=== PATIENT | female | born 1965 | race Caucasian/White ===

== ENCOUNTER 2020-02-13 17:43 | Emergency (ER) | payer OTHER, SELFPAY ==
[2020-02-13 19:11] VITALS: BP 155/80; PULSE 57; RESP 16; TEMP 36.8; O2SAT 99; BMI 28.3
[2020-02-13 19:29] VITALS: BP 165/81; PULSE 67; RESP 16; O2SAT 99
--- NOTE | 2020-02-13 19:35 | ED_ITS ---
HPI - Nausea/Vomiting/Diarrhea General Chief complaint: Nausea/Vomiting/Diarrhea Stated complaint: n/v/d Time Seen by Provider: 02/13/20 19:47 Source: patient Mode of arrival: ambulatory Limitations: no limitations History of Present Illness HPI Narrative: 54-year-old female presents with nausea, vomiting, and diarrhea for 6 hours. Diarrhea started before the nausea and vomiting. She did eat breakfast this morning of pork chops and eggs, and states that the vomiting started several hours after that. She does not have a primary care physician or medical insurance. [place]. She denies chest pain or pressure, palpitations, shortness of breath, abdominal distention, dysuria, hematuria, fevers or chills. MD elicited complaint: nausea, vomiting, diarrhea and abdominal pain Onset (ago): hour(s) (3) Description of vomiting: food contents and watery Description of diarrhea: watery and loose Associated nausea: Yes Associated abdominal pain: Yes Location of pain: epigastric Pain consistency: intermittent Severity: moderate Pain scale (0-10): 6 Quality: cramping Exacerbating factors: eating Relieving factors: none Associated symptoms: nausea/vomiting Treatment prior to arrival: none Related Data Home Medications Medication Instructions Recorded Confirmed No Known Home Meds 02/13/20 02/13/20 Allergies Allergy/AdvReac Type Severity Reaction Status Date / Time No Known Allergies Allergy Verified 02/13/20 19:14 Review of Systems Review of Systems: Constitutional: No Weight loss, No Fever, No Chills, No Night Sweats, No Fatigue, No Malaise ENT/Mouth: No Hearing loss, No Ear Pain, No Nasal Congestion, No Sinus Pain, No Hoarseness, No sore throat, No Rhinorrhea, No Swallowing Difficulty Eyes: No Eye Pain, No Swelling, No Redness, No Foreign Body, No Discharge, No Vision Changes Cardiovascular: No Chest Pain, No SOB, No Dyspnea on Exertion, No Orthopnea, No Edema, No Palpitations Respiratory: No Cough, No Sputum, No Wheezing, No Smoke Exposure, No Dyspnea Gastrointestinal: Positive Nausea, Positive Vomiting, positive Diarrhea, positive abdominal Pain, No Hematochezia, No Melena Genitourinary: no irregular bleeding, No Dysuria, No Urinary Frequency, No Hematuria, No Urinary Incontinence, No Urgency, No Flank Pain, No Urinary Flow Changes, No Hesitancy Musculoskeletal: No joint pain, No Myalgias, No Joint Swelling Skin: No Skin Lesions, No rash Neuro: No Weakness, No Numbness, No Paresthesias, No Loss of Consciousness, No Dizziness, No Headache Psych: No Anxiety/Panic, No Depression, No SI/HI/AH/VH, No Social Issues Heme/Lymph: No Bruising, No Bleeding,No Lymphadenopathy Endocrine: No Polyuria, No Polydipsia, No Temperature Intolerance Yes all other systems are reviewed and are negative Gastrointestinal: Gastrointestinal: Reports nausea PMFSH Past Medical History Attestation statement: The following information was validated with the patient. Source: old records reviewed Medical History (Updated 02/13/20 @ 22:35 by Elin Babb NP) No known health problems Social History Social History Advance Directives: No Physical Exam Vital Signs: Vital Signs: Last Vital Signs Temp 98.2 F 02/13/20 19:11 Pulse 67 02/13/20 19:29 Resp 16 02/13/20 19:29 BP 165/81 H 02/13/20 19:29 Pulse Ox 99 02/13/20 19:29 Body Mass Index 28.3 Appearance: Alert. Oriented X3. Mild distress. Eyes: Pupils equal, round and reactive to light. ENT: Pharynx normal. Neck: Normal inspection. Neck supple. CVS: Normal heart rate and rhythm. Pulses normal. Respiratory: No respiratory distress. Breath sounds normal. Abdomen: Soft and mild tenderness to deep palpation to the epigastric area. Skin: Skin warm and dry. Normal skin color. Normal skin turgor. Extremities: No lower extremity edema. Neuro: No motor deficit. No sensory deficit. Course Course Course Narrative: 54-year-old female presents with nausea, vomiting, and diarrhea for 6 hours. She states that she does not have a primary care physician or medical insurance. [place]. EKG is normal sinus troponin negative, white count elevated at 12.2, urinalysis positive for UTI. Blood glucose elevated at 176. Highly unlikely that this is ACS, will treat for UTI with Keflex as this has worked well for her in the past. COVID negative. Detailed description regarding elevated glucose and need for follow-up as this could possibly be diabetes new onset. She was given a list of phone numbers for primary care physician and endocrinology. Patient verbalized understanding of and agrees to plan of care discharge home. MDM - Nausea/Vomiting/Diarrhea Differential Diagnosis Differential diagnosis: Likely traveler's diarrhea, food poisoning, gastroenter itis and dehydration Medical Records Attestation: I reviewed the patient's medical records. Lab Data Attestation: I reviewed the patient's lab results. Result diagrams: 02/13/20 19:53 02/13/20 19:53 Labs: Lab Results 02/13/20 02/13/20 02/13/20 Range/Units 19:53 19:53 19:53 WBC 12.2 H (4.8-10.8) X10*3/uL RBC 5.26 (4.20-5.50) X10*6/uL Hgb 12.3 (12.0-16.0) g/dl Hct 38.4 (37-47) % MCV 73.0 L (80-98) fL MCH 23.4 L (27.0-33.0) pg MCHC 32.0 (31.0-35.0) g/dl RDW 16.8 H (11.0-16.0) % Plt Count 244 (160-400) X10*3/uL MPV 10.0 (9.4-12.3) fL Immature Gran % (Auto) 0.4 (0.0-0.4) % Neut % (Auto) 78.6 H (45-73) % Lymph % (Auto) 15.7 L (20-40) % Saline % (Auto) 4.9 (2-11) % Eos % (Auto) 0.2 (0-4) % Baso % (Auto) 0.2 (0-2) % Lymph # (Auto) 1.9 (1.2-4.9) X10*3/uL Saline # (Auto) 0.6 (0.1-1.2) X10*3/uL Eos # (Auto) 0.0 (0.0-0.4) X10*3/uL Baso # (Auto) 0.0 (0.0-0.2) X10*3/uL Abs Immat Gran (auto) 0.05 H (0.00-0.03) X10*3/uL Absolute Neuts (auto) 9.6 H (2.0-8.3) X10*3/uL Absolute Nucleated RBC 0.000 (0.0-0.012) X10*3/uL Nucleated RBC % (auto) 0.0 (0.0-0.2) /100WBC Sodium 134 L (135-145) mmol/L Potassium 4.2 (3.3-5.1) mmol/l Chloride 102 (96-108) mmol/L Carbon Dioxide 24 (22-29) mmol/L Anion Gap 12 (12-20) BUN 8 L (9-16) mg/dL Creatinine 0.74 (0.5-1.4) mg/dL Estim Creat Clear Calc 78.5 Estimated GFR > 60 Random Glucose 176 H (60-115) mg/dL Calcium 8.7 (8.4-10.2) mg/dL Magnesium 2.1 (1.6-2.6) mg/dL Total Bilirubin 0.4 (0.0-1.0) mg/dL Direct Bilirubin 0.2 (0.0-0.5) mg/dL AST 35 H (5-31) U/L ALT 46 H (0-31) U/L Alkaline Phosphatase 101 (39-117) U/L Troponin I High Sens < 3.5 (<3.5-17.0) ng/L Total Protein 8.3 H (6.5-8.0) g/dL Albumin 4.2 (3.5-5.0) g/dL Lipase 11 (8-78) U/L Urine Color Urine Appearance Urine pH (5.0-8.0) Ur Specific [facility] (1.005-1.025) Urine Protein (NEG-TRACE) MG/DL Urine Glucose (UA) (NEG) MG/DL Urine Ketones (NEG) MG/DL Urine Blood (NEG) Urine Nitrite (NEG) Ur Leukocyte Esterase (NEG) Urine RBC (0) /HPF Urine WBC (0-4) /HPF Ur Squamous Epith Cells /LPF Urine Bacteria /LPF Coronavirus (PCR) (Negative) Influenza Type A (PCR) (Negative) Influenza Type B (PCR) (Negative) RSV RNA Qual (PCR) (Negative) 02/13/20 02/13/20 Range/Units 20:38 22:13 WBC (4.8-10.8) X10*3/uL RBC (4.20-5.50) X10*6/uL Hgb (12.0-16.0) g/dl Hct (37-47) % MCV (80-98) fL MCH (27.0-33.0) pg MCHC (31.0-35.0) g/dl RDW (11.0-16.0) % Plt Count (160-400) X10*3/uL MPV (9.4-12.3) fL Immature Gran % (Auto) (0.0-0.4) % Neut % (Auto) (45-73) % Lymph % (Auto) (20-40) % Saline % (Auto) (2-11) % Eos % (Auto) (0-4) % Baso % (Auto) (0-2) % Lymph # (Auto) (1.2-4.9) X10*3/uL Saline # (Auto) (0.1-1.2) X10*3/uL Eos # (Auto) (0.0-0.4) X10*3/uL Baso # (Auto) (0.0-0.2) X10*3/uL Abs Immat Gran (auto) (0.00-0.03) X10*3/uL Absolute Neuts (auto) (2.0-8.3) X10*3/uL Absolute Nucleated RBC (0.0-0.012) X10*3/uL Nucleated RBC % (auto) (0.0-0.2) /100WBC Sodium (135-145) mmol/L Potassium (3.3-5.1) mmol/l Chloride (96-108) mmol/L Carbon Dioxide (22-29) mmol/L Anion Gap (12-20) BUN (9-16) mg/dL Creatinine (0.5-1.4) mg/dL Estim Creat Clear Calc Estimated GFR Random Glucose (60-115) mg/dL Calcium (8.4-10.2) mg/dL Magnesium (1.6-2.6) mg/dL Total Bilirubin (0.0-1.0) mg/dL Direct Bilirubin (0.0-0.5) mg/dL AST (5-31) U/L ALT (0-31) U/L Alkaline Phosphatase (39-117) U/L Troponin I High Sens (<3.5-17.0) ng/L Total Protein (6.5-8.0) g/dL Albumin (3.5-5.0) g/dL Lipase (8-78) U/L Urine Color YELLOW Urine Appearance HAZY Urine pH 6.0 (5.0-8.0) Ur Specific [facility] 1.015 (1.005-1.025) Urine Protein NEG (NEG-TRACE) MG/DL Urine Glucose (UA) NEG (NEG) MG/DL Urine Ketones NEG (NEG) MG/DL Urine Blood NEG (NEG) Urine Nitrite POS H (NEG) Ur Leukocyte Esterase 1+ H (NEG) Urine RBC 0 (0) /HPF Urine WBC 1-4 (0-4) /HPF Ur Squamous Epith Cells 1+ /LPF Urine Bacteria 3+ /LPF Coronavirus (PCR) NEGATIVE (Negative) Influenza Type A (PCR) NEGATIVE (Negative) Influenza Type B (PCR) NEGATIVE (Negative) RSV RNA Qual (PCR) NEGATIVE (Negative) ECG Data Attestation: I personally reviewed and interpreted this ECG as follows: ECG interpretation date: 02/13/20 ECG interpretation time: 19:43 Interpretation: Vent. Rate : 060 BPM Atrial Rate : 060 BPM P-R Int : 126 ms QRS Dur : 082 ms QT Int : 446 ms P-R-T Axes : 056 051 026 degrees QTc Int : 446 ms Normal sinus rhythm Normal ECG No previous ECGs available Scores Heart Score History: -0- slightly suspicious ECG: -0- normal Age: -1- >45 - <65 Risk factory: -0- no risk factors known Troponin: -0- < or = normal limit Score: 1 Risk: 1.7% Discharge Plan Discharge Clinical Impression: Hyperglycemia UTI (urinary tract infection) Qualifiers: Urinary tract infection type: acute cystitis Hematuria presence: with hematuria Qualified Code(s): N30.01 - Acute cystitis with hematuria Patient Disposition: Home, Self-Care Instructions: Urinary Tract Infection in Women (ED) Additional Instructions: You were evaluated for abdominal pain nausea and vomiting. Lab values indicate a urinary tract infection. Please take Keflex as directed. This medication is an antibiotic. We prescribed Pyridium for pain. Please take this medication as directed. Please take Zofran for nausea. Your blood sugar is 176. This is an indication of diabetes. You must follow-up with primary care physician and or endocrinology. We gave you a sheet of paper with a phone number to call to find a primary care physician and also an accounting manager assistant controller. Thank you for choosing this emergency department for evaluation. Please follow-up with primary care physician as needed. Return to the emergency department for any new, concerning, or worsening symptoms. Prescriptions: No Action No Known Home Meds RF: 0 Interventions: ED Discharge Assessment Last Done: 02/13/20 22:41 Discharge Date/Time: 02/13/20 22:56
--- NOTE | 2020-02-13 19:36 | ECG_ITS ---
Test Reason : VOMITTING Blood Pressure : / mmHG Vent. Rate : 060 BPM Atrial Rate : 060 BPM P-R Int : 126 ms QRS Dur : 082 ms QT Int : 446 ms P-R-T Axes : 056 051 026 degrees QTc Int : 446 ms Normal sinus rhythm Normal ECG No previous ECGs available Referred By: Elin Babb Electronically Signed By:LÁZARO RAINEY MD
[2020-02-13 19:59] LABS: Basophils Percent Auto 0.2 % (0-2); Eosinophils Percent Auto 0.2 % (0-4); Hematocrit 38.4 % (37-47); Hemoglobin 12.3 g/dl (12.0-16.0); Imm Gran Abs Auto 0.05 X10*3/uL (0.00-0.03); Imm Gran Pct Auto 0.4 % (0.0-0.4); Lymphocytes Absolute Auto 1.9 X10*3/uL (1.2-4.9); Lymphocytes Percent Auto 15.7 % (20-40); Mean Corpuscular Hemoglobin 23.4 pg (27.0-33.0); Monocytes Absolute Auto 0.6 X10*3/uL (0.1-1.2); Monocytes Percent Auto 4.9 % (2-11); Neutrophils Absolute Auto 9.6 X10*3/uL (2.0-8.3); Neutrophils Percent Auto 78.6 % (45-73); Platelet Count 244 X10*3/uL (160-400); Red Blood Count 5.26 X10*6/uL (4.20-5.50); Red Cell Distribution Width 16.8 % (11.0-16.0); White Blood Count 12.2 X10*3/uL (4.8-10.8)
[2020-02-13 20:00] LABS: MANUAL DIFF FLAG NO
[2020-02-13] MEDS: 0.9 % Sodium Chloride 1,000 ML 999 ML IVCONT (20:03)
[2020-02-13] MEDS: ondansetron HCL 4 MG/2 ML VIAL IVPUSH (20:03)
[2020-02-13 20:24] LABS: Alanine Aminotransferase 46 U/L (0-31); Albumin Level 4.2 g/dL (3.5-5.0); Alkaline Phosphatase 101 U/L (39-117); Anion Gap 12 (12-20); Aspartate Amino Transferase 35 U/L (5-31); Bilirubin Direct 0.2 mg/dL (0.0-0.5); Bilirubin Total 0.4 mg/dL (0.0-1.0); Blood Urea Nitrogen 8 mg/dL (9-16); Calcium 8.7 mg/dL (8.4-10.2); Carbon Dioxide 24 mmol/L (22-29); Chloride 102 mmol/L (96-108); Creatinine Clr Calc Pharmacy 78.5; Estimated Glomerular Filt Rate > 60; Glucose Random 176 mg/dL (60-115); Lipase 11 U/L (8-78); Magnesium 2.1 mg/dL (1.6-2.6); Potassium 4.2 mmol/l (3.3-5.1); Sodium 134 mmol/L (135-145); Total Protein 8.3 g/dL (6.5-8.0)
[2020-02-13 20:28] LABS: Troponin-I High Sensitivity < 3.5 ng/L (<3.5-17.0)
[2020-02-13 21:22] LABS: Influenza A PCR NEGATIVE (Negative); Influenza B PCR NEGATIVE (Negative); Resp Syncy Virus RNA Qual PCR NEGATIVE (Negative); SARS COV2 PCR INHOUSE NEGATIVE (Negative)
[2020-02-13 22:18] LABS: Glucose Urine UA NEG (NEG); Leukocyte Esterase Urine 1+ (NEG); Nitrite Urine POS (NEG); Specific Gravity - Urine 1.015 (1.005-1.025); Urine Blood NEG (NEG); Urine Ketones NEG (NEG); Urine Protein NEG (NEG-TRACE)
[2020-02-13 22:21] LABS: Appearance Urine HAZY; Color Urine YELLOW
[2020-02-13 22:24] LABS: Bacteria Urine 3+ /LPF; RBC Urine 0 /HPF (0); Squamous Epithelial Cell Urine 1+ /LPF
[2020-02-13] MEDS: cephALEXin 500 MG CAPSULE PO (22:49)
[2020-02-13] MEDS: Phenazopyridine HCL 200 MG TABLET PO (22:49)
== END 2020-02-13 22:56 | disposition home or self-care (01) ==
PROVIDERS: Nurse Practitioner Family; Emergency Provider Emergency Medicine
DX: N30.01 Acute cystitis with hematuria (principal); R73.9 Hyperglycemia, unspecified; R11.2 Nausea with vomiting, unspecified; R19.7 Diarrhea, unspecified; Z20.828 Contact with and (suspected) exposure to other viral communicable diseases
CPT/HCPCS: 0241U; 36415; 80048; 80076; 81001; 83690; 83735; 84484; 85025; 87086; 93005; 96361; 96374; 96375; 99284; J2405

== ENCOUNTER 2020-02-16 19:36 | Inpatient (IN) | payer OTHER, SELFPAY ==
[2020-02-16 21:01] VITALS: BP 179/69; PULSE 59; RESP 18; TEMP 36.8; O2SAT 98; BMI 28.3
[2020-02-16 21:46] LABS: Glucose Urine UA 500 MG/DL (NEG); PH 6.5 (5.0-8.0); Specific Gravity - Urine 1.015 (1.005-1.025); Urine Blood NEG (NEG); Urine Ketones 15 MG/DL (NEG); Urine Protein 3+ MG/DL (NEG-TRACE)
[2020-02-16 21:47] LABS: Appearance Urine CLEAR; Basophils Percent Auto 0.3 % (0-2); Color Urine ORANGE; Eosinophils Percent Auto 0.3 % (0-4); Hematocrit 35.7 % (37-47); Hemoglobin 11.8 g/dl (12.0-16.0); Imm Gran Abs Auto 0.04 X10*3/uL (0.00-0.03); Imm Gran Pct Auto 0.4 % (0.0-0.4); Lymphocytes Absolute Auto 1.8 X10*3/uL (1.2-4.9); Lymphocytes Percent Auto 16.2 % (20-40); MANUAL DIFF FLAG NO; Mean Corpuscular HGB Conc 33.1 g/dl (31.0-35.0); Mean Corpuscular Hemoglobin 23.8 pg (27.0-33.0); Mean Corpuscular Volume 72.1 fL (80-98); Mean Platelet Volume 10.3 fL (9.4-12.3); Monocytes Absolute Auto 0.7 X10*3/uL (0.1-1.2); Monocytes Percent Auto 6.5 % (2-11); Neutrophils Absolute Auto 8.6 X10*3/uL (2.0-8.3); Neutrophils Percent Auto 76.3 % (45-73); Platelet Count 238 X10*3/uL (160-400); Red Blood Count 4.95 X10*6/uL (4.20-5.50); Red Cell Distribution Width 17.2 % (11.0-16.0); White Blood Count 11.2 X10*3/uL (4.8-10.8)
[2020-02-16 21:48] LABS: Leukocyte Esterase Urine 2+ (NEG)
[2020-02-16 21:51] LABS: Nitrite Urine POS (NEG)
[2020-02-16 22:04] LABS: RBC Urine 0-2 /HPF (0); Squamous Epithelial Cell Urine TRACE /LPF; Urine Pregnancy NEGATIVE (NEGATIVE); WBC Urine 0-2 /HPF (0-4)
[2020-02-16 22:05] LABS: UPreg QC Valid YES
[2020-02-16 22:20] LABS: Alanine Aminotransferase 164 U/L (0-31); Alkaline Phosphatase 288 U/L (39-117); Anion Gap 14 (12-20); Aspartate Amino Transferase 137 U/L (5-31); Bilirubin Total 5.1 mg/dL (0.0-1.0); Blood Urea Nitrogen 8 mg/dL (9-16); Calcium 8.6 mg/dL (8.4-10.2); Carbon Dioxide 24 mmol/L (22-29); Chloride 104 mmol/L (96-108); Creatinine Clr Calc Pharmacy 78.5; Estimated Glomerular Filt Rate > 60; Glucose Random 150 mg/dL (60-115); Potassium 3.8 mmol/l (3.3-5.1); Sodium 138 mmol/L (135-145); Total Protein 7.7 g/dL (6.5-8.0)
--- NOTE | 2020-02-16 22:27 | US_ITS ---
EXAMINATION: US ABDOMEN LIMITED CLINICAL INFORMATION: Right upper quadrant pain.. COMPARISON: None TECHNIQUE: Real-time imaging of the right upper quadrant abdominal viscera. FINDINGS: PANCREAS: Normal. LIVER: The liver is normal in size. The liver contour is normal. Parenchymal echogenicity is normal. No focal hepatic lesion. There is mild intrahepatic biliary ductal dilatation. GALLBLADDER: Multiple stones are present in the gallbladder lumen. No gallbladder wall thickening noted. There is trace pericholecystic fluid. COMMON BILE DUCT: Dilated in caliber measuring up to 1.5 cm in diameter. RIGHT KIDNEY: Normal. No hydronephrosis. No renal calculi or focal parenchymal lesions. The kidney measures 10.5 cm in maximum dimension. FREE FLUID: None. US/US abdomen limited IMPRESSION: Cholelithiasis with trace pericholecystic fluid. Intrahepatic and extrahepatic biliary ductal dilatation. These findings are suspicious for acute cholecystitis.
[2020-02-16 22:35] LABS: Acetone, serum QL Negative (Negative)
[2020-02-16 22:43] LABS: Lipase 7 U/L (8-78)
[2020-02-17] VITALS (11 sets, daily range): BP systolic 106–174; BP diastolic 52–82; PULSE 49–72; RESP 16–24; TEMP 36–36.8; O2SAT 95–100
--- NOTE | 2020-02-17 00:12 | CT_ITS ---
EXAMINATION: CT ABDOMEN AND PELVIS WITH CONTRAST CLINICAL INFORMATION: Abdominal pain COMPARISON: Ultrasound 02/16/2020 TECHNIQUE: Multidetector volumetric images were obtained from the superior aspect of the liver through the pubic symphysis following administration 85 mL of Omnipaque 350 intravenous contrast. Sagittal and coronal reformatted images were obtained on the technologist's workstation. Oral contrast: No This CT examination was performed using dose optimization techniques as appropriate, variously including the following: *Automated exposure control *Adjustment of mA and/or kV according to patient size (this includes techniques or standardized protocols for targeted exams where dose is matched to indication/reason for exam; i.e. extremities or head) *Use of iterative reconstruction technique DLP: 666 mGy-cm FINDINGS: LUNG BASES: The visualized lung bases are unremarkable. LIVER, GALLBLADDER, AND BILIARY TREE: The liver is normal in size, shape, and attenuation. No focal hepatic lesion. Diffuse biliary ductal dilatation is present. Multiple stones are seen in the gallbladder lumen. There is suggestion of mild gallbladder wall thickening with trace pericholecystic fluid. The common bile duct is dilated measuring 1.1 cm. Questionable distal filling defect. PANCREAS: Unremarkable. SPLEEN: Unremarkable. ADRENAL GLANDS: Unremarkable. KIDNEYS AND URETERS: The kidneys are normal in size, shape, and attenuation. No hydronephrosis, hydroureter, or calculi seen. No perinephric stranding.. Subcentimeter right renal cyst noted. BLADDER: Unremarkable. GASTROINTESTINAL TRACT: The stomach is unremarkable. Normal caliber small bowel. There is no obstruction. No colonic wall thickening or acute inflammatory change. No free air or free fluid. ABDOMINAL WALL: No significant hernia is appreciated. LYMPH NODES: Normal. VASCULAR: Normal caliber aorta with mild to moderate atherosclerotic calcification. PELVIC VISCERA: Prominent heterogeneous uterus with lobulated configuration suggestive of fibroids. No adnexal mass. OSSEOUS STRUCTURES: No acute or suspicious osseous abnormality. Mild degenerative changes in the spine. CT/CT abdomen pelvis w con IMPRESSION: Intrahepatic and extrahepatic biliary ductal dilatation with questionable filling defect in the distal common bile duct. There is cholelithiasis present with trace pericholecystic fluid. The findings remain suspicious for acute cholecystitis. Possible choledocholithiasis. Probable uterine fibroids.
--- NOTE | 2020-02-17 00:18 | ED_ITS ---
HPI - Female Genitourinary General Chief complaint: Urogenital-Female Stated complaint: BLADDER INFECTION Time Seen by Provider: 02/16/20 22:26 Source: patient Mode of arrival: ambulatory History of Present Illness HPI Narrative: This is a 54-year-old female who was evaluated here on Sunday and diagnosed with the UTI but since that time has had worsening right upper quadrant/epigastric pain that is associated with nausea and vomiting and was recently diagnosed with diabetes. Patient is experiencing chills but otherwise no shortness of breath or chest pain/palpitations. Related Data Home Medications Medication Instructions Recorded Confirmed No Known Home Meds 02/13/20 02/13/20 Allergies Allergy/AdvReac Type Severity Reaction Status Date / Time No Known Allergies Allergy Verified 02/16/20 20:58 Review of Systems Review of Systems: Pertinent positives and negatives as stated in HPI and 10 point review systems otherwise negative. [facility] Past Medical History Source: nursing notes reviewed Medical History No known health problems Social History Social History Advance Directives: No Advance Directives Information Provided: No Physical Exam Vital Signs: Vital Signs: Last Vital Signs Temp 98.3 F 02/16/20 21:01 Pulse 59 02/16/20 21:01 Resp 18 02/16/20 21:01 BP 179/69 H 02/16/20 21:01 Pulse Ox 98 02/16/20 21:01 Body Mass Index 28.3 VITAL SIGNS: Reviewed. GENERAL: Well developed, well nourished, in no acute distress. HEAD: Normocephalic/atraumatic, EYES: PERRLA, EOMI intact without pain, icterus noted EARS: Ext canals without abnormality, TMs non-bulging and non-erythematous NOSE: Nares patent bilateral OROPHARYNX: no oral lesions noted, posterior pharynx clear and non-erythematous without noted tonsillar enlargement/erythema/exudates NECK: Supple, no adenopathy LUNGS: Normal breath sounds. No adventitious sounds or accessory muscle use. SpO2<99> CARDIOVASCULAR: Regular rate and rhythm without noted murmurs, no JVD or lower extremity edema. ABDOMEN: Soft, right upper quadrant/epigastric pain, no CVA tenderness, non- distended with bowel sounds. No rigidity. No guarding. No palpable masses or hernias noted MUSCULOSKELETAL: No tenderness, deformities, or effusions noted on gross inspection. EXTREMITIES: No cyanosis, clubbing or edema. SKIN: Inspection of the skin reveals no rashes, +jaundice NEUROLOGIC: Alert and oriented x 4. Course Course Course Narrative: This is a 54-year-old female with history and clinical presentation suggestive of possible gallbladder/pancreatic/gastric etiology. -labs, IV fluids, antibiotics, pain medication, right upper quadrant ultrasound, CT abdomen pelvis, NPO, urinalysis On review of initial lab work was obvious the patient had LFT profile consistent with likely hepatobiliary obstruction and on ultrasound there is noted cholelithiasis with pericholecystic fluid with CBD measuring 1.5 as well as gallbladder wall thickening. The follow-up CT scan notes intra/extrahepatic biliary ductal dilatation and questionable filling defect at the distal common bile duct. Taken together with the laboratory findings this is most consistent with choledocholithiasis as well as cholecystitis and surgery as well as Gastroenterology were consulted. On re-evaluation patient's pain has gone down to a 4/10 after receiving medication. Case is discussed with inpatient hospitalist team is agreeable for admission. Reevaluation(s) Reevaluation #1: I discussed case with Dr. Pimentel, surgery, who recommends that he will remove the gallbladder after likely ERCP. Time: 02:06 Reevaluation #2: Discussed the case with GI, Dr. Hook, who recommends continuing with Zosyn and repeat LFTs in the morning. MDM - Female Genitourinary Lab Data Result diagrams: 02/16/20 21:35 02/16/20 21:35 Labs: Lab Results 02/16/20 02/16/20 02/16/20 Range/Units 21:35 21:35 21:35 WBC 11.2 H (4.8-10.8) X10*3/uL RBC 4.95 (4.20-5.50) X10*6/uL Hgb 11.8 L (12.0-16.0) g/dl Hct 35.7 L (37-47) % MCV 72.1 L (80-98) fL MCH 23.8 L (27.0-33.0) pg MCHC 33.1 (31.0-35.0) g/dl RDW 17.2 H (11.0-16.0) % Plt Count 238 (160-400) X10*3/uL MPV 10.3 (9.4-12.3) fL Immature Gran % (Auto) 0.4 (0.0-0.4) % Neut % (Auto) 76.3 H (45-73) % Lymph % (Auto) 16.2 L (20-40) % [place] % (Auto) 6.5 (2-11) % Eos % (Auto) 0.3 (0-4) % Baso % (Auto) 0.3 (0-2) % Lymph # (Auto) 1.8 (1.2-4.9) X10*3/uL [place] # (Auto) 0.7 (0.1-1.2) X10*3/uL Eos # (Auto) 0.0 (0.0-0.4) X10*3/uL Baso # (Auto) 0.0 (0.0-0.2) X10*3/uL Abs Immat Gran (auto) 0.04 H (0.00-0.03) X10*3/uL Absolute Neuts (auto) 8.6 H (2.0-8.3) X10*3/uL Absolute Nucleated RBC 0.000 (0.0-0.012) X10*3/uL Nucleated RBC % (auto) 0.0 (0.0-0.2) /100WBC PT 12.6 (10.8-13.0) SEC INR 1.1 (0.9-1.1) APTT 35.5 (24.1-38.0) SEC Hold Blue Top SEE NOTE Sodium 138 (135-145) mmol/L Potassium 3.8 (3.3-5.1) mmol/l Chloride 104 (96-108) mmol/L Carbon Dioxide 24 (22-29) mmol/L Anion Gap 14 (12-20) BUN 8 L (9-16) mg/dL Creatinine 0.74 (0.5-1.4) mg/dL Estim Creat Clear Calc 78.5 Estimated GFR > 60 Random Glucose 150 H (60-115) mg/dL Lactic Acid (0.5-2.0) mmol/L Calcium 8.6 (8.4-10.2) mg/dL Total Bilirubin 5.1 H (0.0-1.0) mg/dL AST 137 H (5-31) U/L ALT 164 H (0-31) U/L Alkaline Phosphatase 288 H D (39-117) U/L Total Protein 7.7 (6.5-8.0) g/dL Albumin 4.0 (3.5-5.0) g/dL Lipase 7 L (8-78) U/L Urine Color Urine Appearance Urine pH (5.0-8.0) Ur Specific [place] (1.005-1.025) Urine Protein (NEG-TRACE) MG/DL Urine Glucose (UA) (NEG) MG/DL Urine Ketones (NEG) MG/DL Urine Blood (NEG) Urine Nitrite (NEG) Ur Leukocyte Esterase (NEG) Urine RBC (0) /HPF Urine WBC (0-4) /HPF Ur Squamous Epith Cells /LPF Urine Bacteria /LPF Urine Test (NEGATIVE) Acetone, Qual Negative (Negative) 02/16/20 02/17/20 Range/Units 21:35 00:33 WBC (4.8-10.8) X10*3/uL RBC (4.20-5.50) X10*6/uL Hgb (12.0-16.0) g/dl Hct (37-47) % MCV (80-98) fL MCH (27.0-33.0) pg MCHC (31.0-35.0) g/dl RDW (11.0-16.0) % Plt Count (160-400) X10*3/uL MPV (9.4-12.3) fL Immature Gran % (Auto) (0.0-0.4) % Neut % (Auto) (45-73) % Lymph % (Auto) (20-40) % [place] % (Auto) (2-11) % Eos % (Auto) (0-4) % Baso % (Auto) (0-2) % Lymph # (Auto) (1.2-4.9) X10*3/uL [place] # (Auto) (0.1-1.2) X10*3/uL Eos # (Auto) (0.0-0.4) X10*3/uL Baso # (Auto) (0.0-0.2) X10*3/uL Abs Immat Gran (auto) (0.00-0.03) X10*3/uL Absolute Neuts (auto) (2.0-8.3) X10*3/uL Absolute Nucleated RBC (0.0-0.012) X10*3/uL Nucleated RBC % (auto) (0.0-0.2) /100WBC PT (10.8-13.0) SEC INR (0.9-1.1) APTT (24.1-38.0) SEC Hold Blue Top Sodium (135-145) mmol/L Potassium (3.3-5.1) mmol/l Chloride (96-108) mmol/L Carbon Dioxide (22-29) mmol/L Anion Gap (12-20) BUN (9-16) mg/dL Creatinine (0.5-1.4) mg/dL Estim Creat Clear Calc Estimated GFR Random Glucose (60-115) mg/dL Lactic Acid 0.8 (0.5-2.0) mmol/L Calcium (8.4-10.2) mg/dL Total Bilirubin (0.0-1.0) mg/dL AST (5-31) U/L ALT (0-31) U/L Alkaline Phosphatase (39-117) U/L Total Protein (6.5-8.0) g/dL Albumin (3.5-5.0) g/dL Lipase (8-78) U/L Urine Color ORANGE Urine Appearance CLEAR Urine pH 6.5 (5.0-8.0) Ur Specific [place] 1.015 (1.005-1.025) Urine Protein 3+ H (NEG-TRACE) MG/DL Urine Glucose (UA) 500 H (NEG) MG/DL Urine Ketones 15 (NEG) MG/DL Urine Blood NEG (NEG) Urine Nitrite POS H (NEG) Ur Leukocyte Esterase 2+ H (NEG) Urine RBC 0-2 (0) /HPF Urine WBC 0-2 (0-4) /HPF Ur Squamous Epith Cells TRACE /LPF Urine Bacteria NONE /LPF Urine Test NEGATIVE (NEGATIVE) Acetone, Qual (Negative) Discharge Plan Discharge Clinical Impression: Choledocholithiasis with acute cholecystitis, UTI (urinary tract infection) Patient Disposition: Admitted As Inpatient
[2020-02-17] MEDS: Piperacillin Sodium/Tazobactam 3.375 GM in 0.9 % Sodium Chloride 50 ML IV ×3 (00:46→17:21)
[2020-02-17] MEDS: HYDROmorphone HCl 0.5 MG/0.5 ML SYRINGE IVPUSH ×3 (00:47→08:52)
[2020-02-17 00:59] LABS: Lactic Acid 0.8 mmol/L (0.5-2.0)
[2020-02-17] MEDS: iohexoL 350 MG/ML 100 ML INFUS..BTL 85 ML IV (01:29)
[2020-02-17] MEDS: 0.9 % Sodium Chloride 2,000 ML 999 ML IV (01:55)
[2020-02-17 02:26] LABS: INTERNATIONAL NORM RATIO 1.1 (0.9-1.1); Prothrombin Time 12.6 SEC (10.8-13.0)
[2020-02-17 02:29] LABS: Partial Thromboplastin Time 35.5 SEC (24.1-38.0)
--- NOTE | 2020-02-17 03:09 | P.HPHOSP_ITS ---
History of Present Illness Date of Service: 02/17/20 Chief Complaint: Abdominal pain 54-year-old female with past medical history diabetes recent UTI presented to the hospital with a chief complaint of epigastric/right upper quadrant abdominal pain. Patient mentioned that since she was diagnosed with UTI, she has been having epigastric pain and right upper abdominal pain associated with nausea vomiting. Denies any blood in the vomitus. Denies any fever chills cough. Denies any chest pain palpitations lightheadedness or dizziness. Denies any recent travel or sick contacts. Review of all other systems is negative except mentioned above ER course: ER team patient was noted to have prep 179/69, tender in the right upper quadrant right upper quadrant ultrasound showed acute cholecystitis; CT abdomen pelvis showed dilated intra and extrahepatic biliary ducts; filling defect in the CBD; noted to elevated team B of 5.1, elevated liver enzymes and alk-phos; given IV Zosyn. Discussed with Dr. Pimentel from General surgery who mentioned that we will follow the patient months patient ERCP from GI. Also spoke to Dr. hardin from Gastroenterology who mentioned to continue Zosyn and to keep the patient NPO for possible ERCP in the morning. [facility] Medical History No known health problems Social History Advance Directives: No Advance Directives Information Provided: No Meds Allergies Allergy/AdvReac Type Severity Reaction Status Date / Time No Known Allergies Allergy Verified 02/16/20 20:58 Home Medications Medication Instructions Recorded Confirmed Type No Known Home Meds 02/13/20 02/13/20 History Physical Exam Vital Signs and Narrative: Vital Signs: Last Vital Signs Temp 98.3 F 02/16/20 21:01 Pulse 59 02/16/20 21:01 Resp 18 02/16/20 21:01 BP 179/69 H 02/16/20 21:01 Pulse Ox 98 02/16/20 21:01 Body Mass Index 28.3 Gen: Appears be in no acute distress HEENT: NCAT, Moist mucosa. Pulmonary: Vesicular breath sounds, fair air entry CVS: Normal S1-S2 Abdomen: BS+, Soft, tender in the right upper quadrant, no guarding no rigidity. Extremities: Warm well perfused Neuro: Alert and awake. Results Labs CBC and Chem 7: 02/16/20 21:35 02/16/20 21:35 Labs: Laboratory Results - last 24 hr 02/16/20 02/16/20 02/16/20 21:35 21:35 21:35 MCV 72.1 L MCH 23.8 L MCHC 33.1 RDW 17.2 H Plt Count 238 MPV 10.3 Immature Gran % (Auto) 0.4 Neut % (Auto) 76.3 H Lymph % (Auto) 16.2 L [place] % (Auto) 6.5 Eos % (Auto) 0.3 Baso % (Auto) 0.3 Lymph # (Auto) 1.8 [place] # (Auto) 0.7 Eos # (Auto) 0.0 Baso # (Auto) 0.0 Abs Immat Gran (auto) 0.04 H Absolute Neuts (auto) 8.6 H Absolute Nucleated RBC 0.000 Nucleated RBC % (auto) 0.0 PT 12.6 INR 1.1 APTT 35.5 Hold Blue Top SEE NOTE Anion Gap 14 Estim Creat Clear Calc 78.5 Estimated GFR > 60 Random Glucose 150 H Lactic Acid Calcium 8.6 Total Bilirubin 5.1 H AST 137 H ALT 164 H Alkaline Phosphatase 288 H D Total Protein 7.7 Albumin 4.0 Lipase 7 L Urine Color Urine Appearance Urine pH Ur Specific [place] Urine Protein Urine Glucose (UA) Urine Ketones Urine Blood Urine Nitrite Ur Leukocyte Esterase Urine RBC Urine WBC Ur Squamous Epith Cells Urine Bacteria Urine Test Acetone, Qual Negative 02/16/20 02/17/20 21:35 00:33 MCV MCH MCHC RDW Plt Count MPV Immature Gran % (Auto) Neut % (Auto) Lymph % (Auto) [place] % (Auto) Eos % (Auto) Baso % (Auto) Lymph # (Auto) [place] # (Auto) Eos # (Auto) Baso # (Auto) Abs Immat Gran (auto) Absolute Neuts (auto) Absolute Nucleated RBC Nucleated RBC % (auto) PT INR APTT Hold Blue Top Anion Gap Estim Creat Clear Calc Estimated GFR Random Glucose Lactic Acid 0.8 Calcium Total Bilirubin AST ALT Alkaline Phosphatase Total Protein Albumin Lipase Urine Color ORANGE Urine Appearance CLEAR Urine pH 6.5 Ur Specific [place] 1.015 Urine Protein 3+ H Urine Glucose (UA) 500 H Urine Ketones 15 Urine Blood NEG Urine Nitrite POS H Ur Leukocyte Esterase 2+ H Urine RBC 0-2 Urine WBC 0-2 Ur Squamous Epith Cells TRACE Urine Bacteria NONE Urine Test NEGATIVE Acetone, Qual Imaging Radiologist's Impressions: Impressions Abdomen Ultrasound 02/16/20 22:27 IMPRESSION: Cholelithiasis with trace pericholecystic fluid. Intrahepatic and extrahepatic biliary ductal dilatation. These findings are suspicious for acute cholecystitis. Abdomen/Pelvis CT 02/17/20 00:12 IMPRESSION: Intrahepatic and extrahepatic biliary ductal dilatation with questionable filling defect in the distal common bile duct. There is cholelithiasis present with trace pericholecystic fluid. The findings remain suspicious for acute cholecystitis. Possible choledocholithiasis. Probable uterine fibroids. Assessment and Plan (1) UTI (urinary tract infection): Qualifiers: Hematuria presence: without hematuria Urinary tract infection type: site unspecified Qualified Code(s): N39.0 - Urinary tract infection, site not specified Status: Acute (2) Choledocholithiasis with acute cholecystitis: Status: Acute 54-year-old female with a past medical history of diabetes, recent UTI diagnosis presented to the hospital with a chief complaint of epigastric pain/right upper quadrant abdominal pain-noted to have acute cholecystitis/dilated biliary ducts/CBD filling defect/transaminitis. Admitted to the hospital for further management Acute cholecystitis: Continued on IV Zosyn. General surgery has been made aware. Blood cultures have been sent IV fluids Zofran p.r.n. Pain control Dilated intra/extrahepatic biliary ducts/CBD filling defect: Discussed with gastroenterology, plan for ERCP in the morning. Patient kept NPO. Transaminitis: Clinic setting of cholelithiasis. Will send acute hepatitis panel as well. Monitor liver enzymes UTI: Patient on antibiotics as mentioned. Patient recent urine cultures grew mixed organisms. Diabetes: Insulin sliding scale Hypertension: Patient's blood pressure noted to be elevated. Question pain driven. Will continue to monitor. If continues to be elevated will consider lisinopril. Tobacco dependence: Patient denied nicotine patch currently DVT prophylaxis:SCD boots Full code
[2020-02-17 03:23] LABS: COVID-19 Test Negative (Negative)
--- NOTE | 2020-02-17 03:23 | PC.NURSE ---
PT SLEEPING, WAKES TO VOICE AND TOUCH.
--- NOTE | 2020-02-17 05:21 | PC.NURSE ---
PT AMBULATORY TO BATHROOM WITH STEADY GAIT. PT WENT BACK TO SLEEP WITHIN 5 MINUTES.
[2020-02-17 05:33] LABS: HBsAGNum1 0.21 S/CO (0.00-0.99); Hepatitis B Surface Antigen Negative (Negative)
[2020-02-17 05:35] LABS: HBS Num1 0.25 mIU/mL (0-7.99); HBc Num1 0.13 S/CO (0.00-0.79); Hepatitis B Core Antibody Nonreactive (Nonreactive); ~HepC Num1 9.13 S/CO (0.00-0.79); ~Hepatitis B Surface Antibody NONREACTIVE (Nonreactive); ~Hepatitis C Antibody Reactive (Nonreactive)
[2020-02-17 07:34] LABS: Glucose, Whole Blood 123 mg/dL (60-115)
--- NOTE | 2020-02-17 07:57 | PC.NURSE ---
REPORT TO FLOOR.
--- NOTE | 2020-02-17 08:40 | MHC.CM.PN ---
CM was unable to reach Patient by phone (Covid hernandez); CM spoke with Mikal at [phone]. 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 The goal for dc is for Patient to return home, no services, as before and CM has initiated and will follow for dc planning. Patient has no PCP and no insurance; a referral has been made to [facility] [place] [facility].
--- NOTE | 2020-02-17 08:50 | P.CONGS_ITS ---
History of Present Illness Consult details Consult date: 02/17/20 <Amy Baker PA-C - Last Filed: 02/17/20 09:18> Reason for consult: abdominal pain (possible CBD stone) <PRINCE Kessler Last Filed: 02/17/20 09:18> Requesting physician: Rusty Watts <Amy Baker PA-C - Last Filed: 02/17/20 09:18> Narrative: Ms. Maldonado is a 54 year old female who presents to the ED with worsening epigastric/RUQ pain. Patient reports the pain began Sunday morning and was s udden in onset. The pain was sharp and constant and associted with nausea, vomiting and diarrhea. She was seen in the ED that day 02/13/20 and diagnosed with a UTI and discharged to home on Keflex which she reports taking as prescribed. She was also found to be hyperglycemic and was told to f/u with PCP and Diabetes clinic. The pain however worsened over the weekend and became unbearable yesterday morning, prompting her to return to the ED for further evaluation. Work up included labs significant for a WBC count of 11.2, Total bilirubin 5.1, AST/ALT 137/164, alk phos of 288. CT scan abd/pelvis and ABD US were also performed which demonstrated diffuse biliary ductal dilatation is present, gallstones without significant gallbladder wall thickening and trace pericholecystic fluid. The common bile duct is dilated measuring 1.1 cm with a questionable distal filling defect. She was admitted to the medical service for further work up and treatment. This morning, the pain is persistent and remains sharp. She denies noticing change in skin color, eyes, or change in urine or stool color. She reports this pain is similar to when she had kidney stones but much worse. She reports she just moved from [place] a couple of months ago. She does not have insurance and has not seen a PCP in years. She denies a previous colonoscopy or mammogram. <Amy Baker PA-C - Last Filed: 02/17/20 09:18> Review of Systems Constitutional: Constitutional: Denies chills and Denies fever(s) <PRINCE Kessler Last Filed: 02/17/20 09:18> Eyes: Eyes: Denies change in vision <Amy Baker PA-C - Last Filed: 02/17/20 09:18> ENT: Denies dizziness <Amy Baker PA-C - Last Filed: 02/17/20 09:18> Cardiovascular: Cardiovascular: Denies chest pain, Denies pedal edema, Denies palpitations and Denies dyspnea <Amy Baker PA-C - Last Filed: 02/17/20 09:18> Respiratory: Respiratory: Denies cough and Denies dyspnea <Amy Baker PA-C - Last Filed: 02/17/20 09:18> Gastrointestinal: Gastrointestinal: Reports as per HPI, Denies melena, Denies hematochezia, Denies change in bowel habits and Denies constipation <Amy Baker PA-C - Last Filed: 02/17/20 09:18> Genitourinary: Genitourinary: Denies hematuria <Amy Baker PA-C - Last Filed: 02/17/20 09:18> Integumentary/Breasts: Skin/Breast: Denies jaundice <Amy Baker PA-C - Last Filed: 02/17/20 09:18> Neurologic: Denies confusion and Denies dizziness <[place] Kessler - Last Filed: 02/17/20 09:18> Psychiatric: Psychiatric: Denies confusion <Amy Baker PA-C - Last Filed: 02/17/20 09:18> Endocrine: Endocrine: Denies palpitations <Amy Baker PA-C Last Filed: 02/17/20 09:18> PMF Past Medical History Medical History: Medical History (Updated 02/17/20 @ 09:05 by Amy Baker PA-C) Hyperglycemia No known health problems <PRINCE Kessler Last Filed: 02/17/20 09:18> Surgical History Surgical History: Surgical History (Updated 02/17/20 @ 09:05 by Amy Baker PA-C) History of tubal ligation <Amy Baker PA-C - Last Filed: 02/17/20 09:18> Social History Social History: Social History (Updated 02/17/20 @ 09:06 by Amy Baker PA-C) Household Members: Spouse Housing: House Do you presently have visiting nurse or other home services: No Alcohol intake: former Smoking Status: Current every day smoker Tobacco Type: Cigarette Cigarettes Per Day: 5 Years Smoked: 39 Smoked in Last 30 Days: Yes Patient Interested in Nicotine Replacement: Yes Patient Given Instructions on How to Stop Smoking: Yes Date Education Initiated: 02/17/20 Second Hand Smoke Exposure: Yes Use of substances other than those prescribed or required for medical reasons: No Have you been hit, kicked, punched, or otherwise hurt by someone within the past year? If so, by whom?: No Do you feel safe in your current relationship?: No Is there a partner from a previous relationship who is making you feel unsafe now?: No Are you made to feel afraid or neglected: No Advance Directives: No Advance Directives Information Provided: No Advance Directives on File: No Do you have thoughts of harming others: None Do you have a plan to hurt others: No Plan Recently lost weight without trying: No service: No Current occupational status: employed <Amy Baker PA-C - Last Filed: 02/17/20 09:18> Meds Allergies/Adverse reactions: Allergies Allergy/AdvReac Type Severity Reaction Status Date / Time No Known Allergies Allergy Verified 02/16/20 20:58 <Amy Baker PA-C - Last Filed: 02/17/20 09:18> Home medications: Home Medications Medication Instructions Recorded Confirmed Type ondansetron [Zofran ODT] 4 mg TRANSLINGUAL Q6H PRN 02/17/20 02/17/20 History phenazopyridine 200 mg PO TID PRN 02/17/20 02/17/20 History <Amy Baker PA-C - Last Filed: 02/17/20 09:18> Physical Exam Vital Signs: Vital Signs: Last Vital Signs Temp 98.3 F 02/16/20 21:01 Pulse 72 02/17/20 03:21 Resp 16 02/17/20 03:21 BP 143/76 H 02/17/20 03:21 Pulse Ox 95 02/17/20 03:21 Body Mass Index 28.3 <Amy Baker PRINCE Gee Last Filed: 02/17/20 09:18> Const: General: cooperative, no acute distress, alert and other (in pain); No confusion <Amy Agudelodeau PRINCE Gee Last Filed: 02/17/20 09:18> Orientation/consciousness: patient oriented x3 and No confusion <Amy Agudelodeau PRINCE Gee Last Filed: 02/17/20 09:18> Eyes: Sclerae: scleral abnormal (icteric) <Amy Agudelodeau PRINCE Gee Last Filed: 02/17/20 09:18> Resp: Effort & Inspection: normal respiratory effort <Amy Agudelodeau PRINCE Gee Last Filed: 02/17/20 09:18> Auscultation: clear to auscultation bilaterally <Amy Baker PRINCE Last Filed: 02/17/20 09:18> Cardio: Rate: regular rate <Amy Baker PRINCE Last Filed: 02/17/20 09:18> Rhythm: regular rhythm <Amy Baker PRINCE Last Filed: 02/17/20 09:18> GI: Inspection: Yes normal to inspection and No distended <Amy Agudelodeau PRINCE Last Filed: 02/17/20 09:18> Palpation (GI): Soft to palpation and Tenderness to palpation present (GI) in the epigastrum, in the RUQ and Escobar's sign positive <Amy Jerniganbodeau PRINCE Gee Last Filed: 02/17/20 09:18> Skin: General skin exam: no rashes or lesions noted and jaundice <Amy Jerniganbodeau PRINCE Gee Last Filed: 02/17/20 09:18> Neuro: General: patient oriented x3 and No confusion <Amy JerniganGAB swannMoi Last Filed: 02/17/20 09:18> Extrem: General: Yes normal to inspection and Yes no clubbing, cyanosis or edema <Amy PatrickGAB swannMoi Gee Last Filed: 02/17/20 09:18> Results Labs Result diagrams: : 02/16/20 21:35 02/16/20 21:35 <Amy Baker PA-C - Last Filed: 02/17/20 09:18> Labs: Abnormal lab results 02/16/20 02/16/20 02/16/20 Range/Units 21:35 21:35 21:35 WBC 11.2 H (4.8-10.8) X10*3/uL Hgb 11.8 L (12.0-16.0) g/dl Hct 35.7 L (37-47) % MCV 72.1 L (80-98) fL MCH 23.8 L (27.0-33.0) pg RDW 17.2 H (11.0-16.0) % Neut % (Auto) 76.3 H (45-73) % Lymph % (Auto) 16.2 L (20-40) % Abs Immat Gran (auto) 0.04 H (0.00-0.03) X10*3/uL Absolute Neuts (auto) 8.6 H (2.0-8.3) X10*3/uL BUN 8 L (9-16) mg/dL POC Glucose (60-115) mg/dL Random Glucose 150 H (60-115) mg/dL Total Bilirubin 5.1 H (0.0-1.0) mg/dL AST 137 H (5-31) U/L ALT 164 H (0-31) U/L Alkaline Phosphatase 288 H D (39-117) U/L Lipase 7 L (8-78) U/L Urine Protein 3+ H (NEG-TRACE) MG/DL Urine Glucose (UA) 500 H (NEG) MG/DL Urine Nitrite POS H (NEG) Ur Leukocyte Esterase 2+ H (NEG) Hepatitis C Ab (EIA) (Nonreactive) 02/16/20 02/17/20 Range/Units 21:35 07:30 WBC (4.8-10.8) X10*3/uL Hgb (12.0-16.0) g/dl Hct (37-47) % MCV (80-98) fL MCH (27.0-33.0) pg RDW (11.0-16.0) % Neut % (Auto) (45-73) % Lymph % (Auto) (20-40) % Abs Immat Gran (auto) (0.00-0.03) X10*3/uL Absolute Neuts (auto) (2.0-8.3) X10*3/uL BUN (9-16) mg/dL POC Glucose 123 H (60-115) mg/dL Random Glucose (60-115) mg/dL Total Bilirubin (0.0-1.0) mg/dL AST (5-31) U/L ALT (0-31) U/L Alkaline Phosphatase (39-117) U/L Lipase (8-78) U/L Urine Protein (NEG-TRACE) MG/DL Urine Glucose (UA) (NEG) MG/DL Urine Nitrite (NEG) Ur Leukocyte Esterase (NEG) Hepatitis C Ab (EIA) Reactive H (Nonreactive) Short CBC 02/16/20 Range/Units 21:35 WBC 11.2 H (4.8-10.8) X10*3/uL Hgb 11.8 L (12.0-16.0) g/dl Hct 35.7 L (37-47) % Plt Count 238 (160-400) X10*3/uL BMP 02/16/20 21:35 Sodium 138 Potassium 3.8 Chloride 104 Carbon Dioxide 24 BUN 8 L Creatinine 0.74 Calcium 8.6 Liver Function 02/16/20 Range/Units 21:35 Total Bilirubin 5.1 H (0.0-1.0) mg/dL AST 137 H (5-31) U/L ALT 164 H (0-31) U/L Alkaline Phosphatase 288 H D (39-117) U/L Albumin 4.0 (3.5-5.0) g/dL Urine 02/16/20 Range/Units 21:35 Urine Color ORANGE Urine Appearance CLEAR Urine pH 6.5 (5.0-8.0) Ur Specific [place] 1.015 (1.005-1.025) Urine Protein 3+ H (NEG-TRACE) MG/DL Urine Glucose (UA) 500 H (NEG) MG/DL Urine Test NEGATIVE (NEGATIVE) All other labs normal. CT SCAN ABD/PELVIS: Intrahepatic and extrahepatic biliary ductal dilatation with questionable filling defect in the distal common bile duct. There is cholelithiasis present with trace pericholecystic fluid. The findings remain suspicious for acute cholecystitis. Possible choledocholithiasis. ABD US: Cholelithiasis with trace pericholecystic fluid. Intrahepatic and extrahepatic biliary ductal dilatation. These findings are suspicious for acute cholecystitis. <Amy Baker PA-C - Last Filed: 02/17/20 09:18> Assessment and Plan (1) Choledocholithiasis with acute cholecystitis: Status: Acute <Amy Baker PA-C - Last Filed: 02/17/20 09:18> 54 year old female with no known PMH who presented to ED with complaints of worsening epigastric/RUQ abd pain associated with nausea, vomiting and jaundice with significant RUQ tenderness, transaminitis/hyperbilirubinemia and imaging concerning for CBD stone. Clinical picture consistent with choledocolithiasis, possible early cholangitis/cholecystitis. Recommend GI consult for further evaluation and MRCP vs. ERCP. Continue IV antibiotics, IVF and pain control. Continue to trend LFTs. Will continue to follow for eventual CCY once bilirubin normalizes. Discussed diagnosis and plan with patient in detail. Case discussed with Dr. Pimentel. <Amy Baker PA-C - Last Filed: 02/17/20 09:18> pt with upper abdl pain x 4-5 days tender upper abd bili elevated at 5.1; AST, ALT also elevated CT shows bilary dilatation, filling defect in distal CBD c/w choledocholithiasis; images reviewed needs GI eval for ERCP IV abx eventual cholecystectomy seen and examined - agree with GAB Baker <Marco A Pimentel MD - Last Filed: 02/17/20 09:52> (2) UTI (urinary tract infection): Qualifiers: Hematuria presence: without hematuria Urinary tract infection type: site unspecified Qualified Code(s): N39.0 - Urinary tract infection, site not specified <Amy Baker PA-C - Last Filed: 02/17/20 09:18> Status: Acute <Amy Baker PA-C - Last Filed: 02/17/20 09:18>
[2020-02-17] MEDS: 0.9 % Sodium Chloride 1,000 ML 100 ML IVCONT (08:55)
[2020-02-17] MEDS: 0.9 % Sodium Chloride Flush 3 ML SYRINGE IVFLUSH ×2 (08:56→17:06)
[2020-02-17 08:57] LABS: Glucose, Whole Blood 127 mg/dL (60-115)
--- NOTE | 2020-02-17 09:51 | PM.GICN ---
History of Present Illness Data of Consult Service Date: 02/17/20 Requesting physician: Marlon Joseph Primary Care Provider: None Physician HPI Reason for consult: Abdominal pain, elevated LFTs, biliary obstruction 54 YF seen at [facility] [place] ED early this am with abdominal pain: This is a 54-year-old female who was evaluated here on Sunday and diagnosed with the UTI but since that time has had worsening right upper quadrant/epigastric pain that is associated with nausea and vomiting and was recently diagnosed with diabetes. Patient is experiencing chills but otherwise no shortness of breath or chest pain/palpitations Pt notes partial improvement in abdominal pain since she has been getting pain medications. Lab evaluation showed elevated WBC and LFT elevation in a cholestatic pattern (TB of 5 and AP of 255). Abd US showed: Cholelithiasis with trace pericholecystic fluid. Intrahepatic and extrahepatic biliary ductal dilatation. These findings are suspicious for acute cholecystitis. Abdominal CT scan showed: Intrahepatic and extrahepatic biliary ductal dilatation with questionable filling defect in the distal common bile duct. There is cholelithiasis present with trace pericholecystic fluid. The findings remain suspicious for acute cholecystitis. Possible choledocholithiasis. Review of Systems Constitutional: Constitutional: Denies fever(s), Denies headache(s) and Denies weight loss Eyes: Eyes: Denies eye discharge and Denies irritation ENT: Denies dysphagia, Denies dizziness and Denies headache(s) Cardiovascular: Cardiovascular: Denies chest pain, Denies leg edema and Denies dyspnea on exertion Respiratory: Respiratory: Denies cough, Denies dyspnea on exertion and Denies wheezing Gastrointestinal: Gastrointestinal: Reports abdominal pain, Denies change in bowel habits, Denies dysphagia, Denies heartburn, Reports nausea and Reports vomiting Genitourinary: Genitourinary: Denies difficulty voiding and Denies dysuria Musculoskeletal: Musculoskeletal: Denies back pain and Denies arthralgias Integumentary/Breasts: Skin/Breast: Denies pruritus, Denies rash and Denies jaundice Neurologic: Denies confusion, Denies dizziness and Denies headache(s) Psychiatric: Psychiatric: Denies confusion Endocrine: Endocrine: Denies cold intolerance, Denies flushing and Denies heat intolerance Hematologic/Lymphatic: Hematologic/Lymphatic: Denies easy bleeding and Denies easy bruising Allergic/Immunologic: Allergic/Immunologic: Denies wheezing PMFSH Past Medical History Medical History Hyperglycemia No known health problems Surgical History Surgical History History of tubal ligation Social History Social History Household Members: Spouse Housing: House Alcohol intake: former Smoking Status: Current every day smoker Tobacco Type: Cigarette Cigarettes Per Day: 5 Years Smoked: 39 Second Hand Smoke Exposure: Yes service: No Current occupational status: employed Meds Allergies Allergy/AdvReac Type Severity Reaction Status Date / Time No Known Allergies Allergy Verified 02/16/20 20:58 Home Medications Medication Instructions Recorded Confirmed Type ondansetron 4 mg TRANSLINGUAL Q6H PRN 02/17/20 02/17/20 History phenazopyridine 200 mg PO TID PRN 02/17/20 02/17/20 History Physical Exam Vital Signs: Vital Signs: Last Vital Signs Temp 98.3 F 02/17/20 08:00 Pulse 58 02/17/20 08:00 Resp 18 02/17/20 08:00 BP 174/70 H 02/17/20 08:00 Pulse Ox 99 02/17/20 08:00 Body Mass Index 28.3 Const: General: No confusion Nutritional Appearance: average body habitus Orientation/consciousness: No confusion Limitations: no limitations HENMT: Head: Yes normal to inspection Ears: hearing grossly normal bilaterally Mouth: Normal oral and palatal mucosa present Eyes: Sclerae: sclerae normal Pupils: Equal, round and reactive pupils present Neck: Neck: Yes normal visual inspection Chest: Chest palpation & inspection: normal inspection of the chest Resp: Effort & Inspection: normal respiratory effort Auscultation: clear to auscultation bilaterally Cardio: Palpation: normal PMI Rate: regular rate Rhythm: regular rhythm Heart sounds: S1 normal heart sound present, S2 normal heart sound present and no murmurs GI: Palpation (GI): Soft to palpation, Tenderness to palpation present (GI) (diffuse upper abdominal tenderness) and No hepatosplenomegaly present Auscultation: normal bowel sounds Rectal Exam - Female: deferred Skin: General skin exam: no rashes or lesions noted Neuro: General: No confusion Cranial nerves: Yes Equal, round and reactive pupils present Psych: Appearance: grossly normal Mental Status: mental status grossly normal Results Labs CBC & Chem 7: 02/18/20 04:11 02/18/20 04:11 Labs: Short CBC 02/16/20 Range/Units 21:35 WBC 11.2 H (4.8-10.8) X10*3/uL Hgb 11.8 L (12.0-16.0) g/dl Hct 35.7 L (37-47) % Plt Count 238 (160-400) X10*3/uL BMP 02/16/20 21:35 Sodium 138 Potassium 3.8 Chloride 104 Carbon Dioxide 24 BUN 8 L Creatinine 0.74 Calcium 8.6 Liver Function 02/16/20 Range/Units 21:35 Total Bilirubin 5.1 H (0.0-1.0) mg/dL AST 137 H (5-31) U/L ALT 164 H (0-31) U/L Alkaline Phosphatase 288 H D (39-117) U/L Albumin 4.0 (3.5-5.0) g/dL Urine 02/16/20 Range/Units 21:35 Urine Color ORANGE Urine Appearance CLEAR Urine pH 6.5 (5.0-8.0) Ur Specific [place] 1.015 (1.005-1.025) Urine Protein 3+ H (NEG-TRACE) MG/DL Urine Glucose (UA) 500 H (NEG) MG/DL Assessment and Plan (1) Choledocholithiasis with acute cholecystitis: Status: Acute (2) Positive hepatitis C antibody test: Status: Acute (3) Elevated LFTs: Status: Acute 54 YF with hyperglycemia admitted with abdominal pain, nausea and vomiting. Imaging studies show cholelithiasis with trace pericholecystic fluid suspicious for acute cholecystitis. ? filling defect in the distal CBD with intrahepatic and extrahepatic biliary ductal dilatation. RECOMMENDATIONS: Patient needs ERCP for CBD stone removal. Procedure and potential complications including bleeding, perforation, reaction to anesthetics, cholangitis and pancreatitis were reviewed with the patient. She will need a Lap Radha after ERCP. Hepatitis C viral load added to am labs.
[2020-02-17 10:03] LABS: MANUAL DIFF FLAG NO
[2020-02-17 10:13] LABS: Basophils Percent Auto 0.4 % (0-2); Eosinophils Percent Auto 0.2 % (0-4); Hematocrit 33.4 % (37-47); Hemoglobin 10.9 g/dl (12.0-16.0); Imm Gran Abs Auto 0.04 X10*3/uL (0.00-0.03); Imm Gran Pct Auto 0.5 % (0.0-0.4); Lymphocytes Absolute Auto 1.7 X10*3/uL (1.2-4.9); Lymphocytes Percent Auto 19.9 % (20-40); Mean Corpuscular HGB Conc 32.6 g/dl (31.0-35.0); Mean Corpuscular Hemoglobin 23.4 pg (27.0-33.0); Mean Corpuscular Volume 71.8 fL (80-98); Mean Platelet Volume 10.6 fL (9.4-12.3); Monocytes Absolute Auto 0.7 X10*3/uL (0.1-1.2); Monocytes Percent Auto 7.7 % (2-11); Neutrophils Percent Auto 71.3 % (45-73); Platelet Count 221 X10*3/uL (160-400); Red Blood Count 4.65 X10*6/uL (4.20-5.50); Red Cell Distribution Width 17.2 % (11.0-16.0); White Blood Count 8.4 X10*3/uL (4.8-10.8)
[2020-02-17 10:30] LABS: Prothrombin Time 12.2 SEC (10.8-13.0)
[2020-02-17 10:39] LABS: Anion Gap 14 (12-20); Blood Urea Nitrogen 5 mg/dL (9-16); Carbon Dioxide 20 mmol/L (22-29); Chloride 107 mmol/L (96-108); Creatinine Clr Calc Pharmacy 96.7; Estimated Glomerular Filt Rate > 60; Glucose Random 112 mg/dL (60-115); Potassium 3.3 mmol/l (3.3-5.1); Sodium 138 mmol/L (135-145)
[2020-02-17 10:39] LABS: Alanine Aminotransferase 139 U/L (0-31); Albumin Level 3.6 g/dL (3.5-5.0); Alkaline Phosphatase 255 U/L (39-117); Aspartate Amino Transferase 116 U/L (5-31); Bilirubin Direct 4.2 mg/dL (0.0-0.5); Estimated Average Glucose 146 mg/dL; Hemoglobin A1c % 6.7 %; Total Protein 6.9 g/dL (6.5-8.0)
--- NOTE | 2020-02-17 10:49 | HO.ANESPROP2 ---
COUNT INCLUDES THE [facility] Past Medical History Medical History Hyperglycemia No known health problems Surgical History Surgical History History of tubal ligation Social History Social History Household Members: Spouse Housing: House Do you presently have visiting nurse or other home services: No Alcohol intake: former Smoking Status: Current every day smoker Tobacco Type: Cigarette Cigarettes Per Day: 5 Years Smoked: 39 Smoked in Last 30 Days: Yes Patient Interested in Nicotine Replacement: Yes Patient Given Instructions on How to Stop Smoking: Yes Date Education Initiated: 02/17/20 Second Hand Smoke Exposure: Yes Use of substances other than those prescribed or required for medical reasons: No Have you been hit, kicked, punched, or otherwise hurt by someone within the past year? If so, by whom?: No Do you feel safe in your current relationship?: No Is there a partner from a previous relationship who is making you feel unsafe now?: No Are you made to feel afraid or neglected: No Advance Directives: No Advance Directives Information Provided: No Advance Directives on File: No Do you have thoughts of harming others: None Do you have a plan to hurt others: No Plan Recently lost weight without trying: No service: No Current occupational status: employed Meds Allergies Allergy/AdvReac Type Severity Reaction Status Date / Time No Known Allergies Allergy Verified 02/16/20 20:58 Home Medications Medication Instructions Recorded Confirmed Type ondansetron [Zofran ODT] 4 mg TRANSLINGUAL Q6H PRN 02/17/20 02/17/20 History phenazopyridine 200 mg PO TID PRN 02/17/20 02/17/20 History Exam Exam Date and Time: February 17, 2020 1049 Height,Weight and Vital Signs: Height 5 ft 1 in Weight 68.039 kg Last Vital Signs Temp 98.3 F 02/17/20 08:00 Pulse 58 02/17/20 08:00 Resp 18 02/17/20 08:00 BP 174/70 H 02/17/20 08:00 Pulse Ox 99 02/17/20 08:00 Pertinent Lab Results Pertinent Lab Results: Laboratory Tests 02/16/20 02/16/20 02/16/20 21:35 21:35 21:35 WBC 11.2 H RBC 4.95 Hgb 11.8 L Hct 35.7 L MCV 72.1 L MCH 23.8 L MCHC 33.1 RDW 17.2 H Plt Count 238 MPV 10.3 Immature Gran % (Auto) 0.4 Neut % (Auto) 76.3 H Lymph % (Auto) 16.2 L [place] % (Auto) 6.5 Eos % (Auto) 0.3 Baso % (Auto) 0.3 Lymph # (Auto) 1.8 [place] # (Auto) 0.7 Eos # (Auto) 0.0 Baso # (Auto) 0.0 Abs Immat Gran (auto) 0.04 H Absolute Neuts (auto) 8.6 H Absolute Nucleated RBC 0.000 Nucleated RBC % (auto) 0.0 PT 12.6 INR 1.1 APTT 35.5 Hold Blue Top SEE NOTE Sodium 138 Potassium 3.8 Chloride 104 Carbon Dioxide 24 Anion Gap 14 BUN 8 L Creatinine 0.74 Estim Creat Clear Calc 78.5 Estimated GFR > 60 POC Glucose Random Glucose 150 H Estimat Average Glucose Hemoglobin A1c % Lactic Acid Calcium 8.6 Total Bilirubin 5.1 H Direct Bilirubin AST 137 H ALT 164 H Alkaline Phosphatase 288 H D Total Protein 7.7 Albumin 4.0 Lipase 7 L Urine Color Urine Appearance Urine pH Ur Specific [place] Urine Protein Urine Glucose (UA) Urine Ketones Urine Blood Urine Nitrite Ur Leukocyte Esterase Urine RBC Urine WBC Ur Squamous Epith Cells Urine Bacteria Urine Test Acetone, Qual Negative COVID-19 (LANCE) COVID-19 Clin Com Hep Bs Antigen Hep Bs Antibody Hep B Core Total Ab Hepatitis C Ab (EIA) 02/16/20 02/16/20 02/17/20 21:35 21:35 00:33 WBC RBC Hgb Hct MCV MCH MCHC RDW Plt Count MPV Immature Gran % (Auto) Neut % (Auto) Lymph % (Auto) [place] % (Auto) Eos % (Auto) Baso % (Auto) Lymph # (Auto) [place] # (Auto) Eos # (Auto) Baso # (Auto) Abs Immat Gran (auto) Absolute Neuts (auto) Absolute Nucleated RBC Nucleated RBC % (auto) PT INR APTT Hold Blue Top Sodium Potassium Chloride Carbon Dioxide Anion Gap BUN Creatinine Estim Creat Clear Calc Estimated GFR POC Glucose Random Glucose Estimat Average Glucose Hemoglobin A1c % Lactic Acid 0.8 Calcium Total Bilirubin Direct Bilirubin AST ALT Alkaline Phosphatase Total Protein Albumin Lipase Urine Color ORANGE Urine Appearance CLEAR Urine pH 6.5 Ur Specific [place] 1.015 Urine Protein 3+ H Urine Glucose (UA) 500 H Urine Ketones 15 Urine Blood NEG Urine Nitrite POS H Ur Leukocyte Esterase 2+ H Urine RBC 0-2 Urine WBC 0-2 Ur Squamous Epith Cells TRACE Urine Bacteria NONE Urine Test NEGATIVE Acetone, Qual COVID-19 (LANCE) COVID-19 Clin Com Hep Bs Antigen Negative Hep Bs Antibody NONREACTIVE Hep B Core Total Ab Nonreactive Hepatitis C Ab (EIA) Reactive H 02/17/20 02/17/20 02/17/20 02:54 07:30 08:49 WBC RBC Hgb Hct MCV MCH MCHC RDW Plt Count MPV Immature Gran % (Auto) Neut % (Auto) Lymph % (Auto) [place] % (Auto) Eos % (Auto) Baso % (Auto) Lymph # (Auto) [place] # (Auto) Eos # (Auto) Baso # (Auto) Abs Immat Gran (auto) Absolute Neuts (auto) Absolute Nucleated RBC Nucleated RBC % (auto) PT INR APTT Hold Blue Top Sodium Potassium Chloride Carbon Dioxide Anion Gap BUN Creatinine Estim Creat Clear Calc Estimated GFR POC Glucose 123 H 127 H Random Glucose Estimat Average Glucose Hemoglobin A1c % Lactic Acid Calcium Total Bilirubin Direct Bilirubin AST ALT Alkaline Phosphatase Total Protein Albumin Lipase Urine Color Urine Appearance Urine pH Ur Specific [place] Urine Protein Urine Glucose (UA) Urine Ketones Urine Blood Urine Nitrite Ur Leukocyte Esterase Urine RBC Urine WBC Ur Squamous Epith Cells Urine Bacteria Urine Test Acetone, Qual COVID-19 (LANCE) Negative COVID-19 Clin Com See Note Hep Bs Antigen Hep Bs Antibody Hep B Core Total Ab Hepatitis C Ab (EIA) 02/17/20 02/17/20 02/17/20 09:09 09:09 09:09 WBC 8.4 RBC 4.65 Hgb 10.9 L Hct 33.4 L MCV 71.8 L MCH 23.4 L MCHC 32.6 RDW 17.2 H Plt Count 221 MPV 10.6 Immature Gran % (Auto) 0.5 H Neut % (Auto) 71.3 Lymph % (Auto) 19.9 L [place] % (Auto) 7.7 Eos % (Auto) 0.2 Baso % (Auto) 0.4 Lymph # (Auto) 1.7 [place] # (Auto) 0.7 Eos # (Auto) 0.0 Baso # (Auto) 0.0 Abs Immat Gran (auto) 0.04 H Absolute Neuts (auto) 6.0 Absolute Nucleated RBC 0.000 Nucleated RBC % (auto) 0.0 PT 12.2 INR 1.0 APTT Hold Blue Top Sodium Potassium Chloride Carbon Dioxide Anion Gap BUN Creatinine Estim Creat Clear Calc Estimated GFR POC Glucose Random Glucose Estimat Average Glucose Hemoglobin A1c % Lactic Acid Calcium Total Bilirubin 5.0 H Direct Bilirubin 4.2 H AST 116 H ALT 139 H Alkaline Phosphatase 255 H Total Protein 6.9 Albumin 3.6 Lipase Urine Color Urine Appearance Urine pH Ur Specific [place] Urine Protein Urine Glucose (UA) Urine Ketones Urine Blood Urine Nitrite Ur Leukocyte Esterase Urine RBC Urine WBC Ur Squamous Epith Cells Urine Bacteria Urine Test Acetone, Qual COVID-19 (LANCE) COVID-19 Clin Com Hep Bs Antigen Hep Bs Antibody Hep B Core Total Ab Hepatitis C Ab (EIA) 02/17/20 02/17/20 09:09 09:10 WBC RBC Hgb Hct MCV MCH MCHC RDW Plt Count MPV Immature Gran % (Auto) Neut % (Auto) Lymph % (Auto) [place] % (Auto) Eos % (Auto) Baso % (Auto) Lymph # (Auto) [place] # (Auto) Eos # (Auto) Baso # (Auto) Abs Immat Gran (auto) Absolute Neuts (auto) Absolute Nucleated RBC Nucleated RBC % (auto) PT INR APTT Hold Blue Top Sodium 138 Potassium 3.3 Chloride 107 Carbon Dioxide 20 L Anion Gap 14 BUN 5 L Creatinine 0.60 Estim Creat Clear Calc 96.7 Estimated GFR > 60 POC Glucose Random Glucose 112 Estimat Average Glucose 146 Hemoglobin A1c % 6.7 Lactic Acid Calcium 8.0 L D Total Bilirubin Direct Bilirubin AST ALT Alkaline Phosphatase Total Protein Albumin Lipase Urine Color Urine Appearance Urine pH Ur Specific [place] Urine Protein Urine Glucose (UA) Urine Ketones Urine Blood Urine Nitrite Ur Leukocyte Esterase Urine RBC Urine WBC Ur Squamous Epith Cells Urine Bacteria Urine Test Acetone, Qual COVID-19 (LANCE) COVID-19 Clin Com Hep Bs Antigen Hep Bs Antibody Hep B Core Total Ab Hepatitis C Ab (EIA) Airway Mallampati Class: I TM Dist: >3cm Neck ROM: Full Partial: Upper Loose/Missing/Broken Teeth: Yes (Loose left central incisor) Heart: RRR Lungs: CTA Assessment and Plan Assessment Anesthesia Assessment: Anesthesia Plan Discussed and Chart Reviewed Final Anesthetic Review NPO: Yes ASA Class: II Final Preanesthetic Review: Meds/Allgs Chart Reviewed and Consent Obtained/Reviewed Patient Risk: Low Procedure Risk: Intermediate Anesthetic Plan Anesthetic Plan: GA Disposition: Standard PACU
[2020-02-17 11:28] LABS: Glucose, Whole Blood 104 mg/dL (60-115)
--- NOTE | 2020-02-17 12:24 | FL_ITS ---
EXAMINATION: XR FLUOROSCOPY WITH IMAGES CLINICAL INFORMATION: Biliary ductal dilatation with questionable filling defect distal CBD. ERCP. COMPARISON: CT abdomen and pelvis with contrast 02/17/2020 TECHNIQUE: Fluoroscopy performed by Dr. Fierro. Fluoroscopy time: 0.9 minutes Total dose: 17.35 mGy Images: 2 FINDINGS: Endoscope noted in position with catheter at expected region of papilla. FL/FL guidance in OR IMPRESSION: Fluoroscopy for gastroenterology procedure.
--- NOTE | 2020-02-17 12:32 | MHC.SHP ---
Pre-Procedural Eval Section A The patient is an INPATIENT: Yes The History & Physical has been completed within 30 days and I have reviewed it.: Yes Section B Chief Complaint: Cholecystitis Allergies: Allergies Allergy/AdvReac Type Severity Reaction Status Date / Time No Known Allergies Allergy Verified 02/16/20 20:58 Plan Diagnosis/Plan: Unchanged I have reviewed the history and physical and performed a pertinent physical examination on my patient. No changes have occurred unless specified.
--- NOTE | 2020-02-17 12:33 | PM.OP ---
Brief Operative Note Date of Service: 02/17/20 Pre-op diagnosis: cbd obstruction Post-op diagnosis: same Procedure: Description: Endoscopic retrograde cholangiopancreatography (ERCP) PROCEDURE: Endoscopic retrograde cholangiopancreatography INDICATION FOR THE PROCEDURE: Patient with jaundice and CBD stone on imaging MEDICATIONS: General anesthesia, rectal indomethacin 100 mg, The risks of the procedure were made aware to the patient and consisted of medication reaction, bleeding, perforation, aspiration, and post ERCP pancreatitis. DESCRIPTION OF PROCEDURE: After informed consent and appropriate sedation, the duodenoscope was inserted into the oropharynx, down the esophagus, and into the stomach. The scope was then advanced through the pylorus to the ampulla. The ampulla was bulbous. The angulation made the entry into the orifice difficult, and inspite of maximal orientation I couldn;t get into the CBD or even into the PD. The orifice seemed stenosed as well. A needle knife was used to try to open the orifice. There was edema and some blood which made visualization difficult. Saline was also injected around the folds behind the ampulla to bring it more forward but even with that I could not access the duct. After several efforts the procedure was aborted. The stomach was then decompressed and the endoscope was withdrawn. FINDINGS: 1. Unsuccessful ERCP RECOMMENDATIONS: 1. NPO except ice chips for next 4-6 hrs then clears as tolerated 2. Will bring her back tomorrow and try again, once edema subsides it might be easier to see the orifice now that a needle knife has been done. Surgeon: Eleuterio Fierro MD Anesthesia: GETA Estimated blood loss (mL): 5 Pathology: none sent Condition: stable Disposition: PACU
--- NOTE | 2020-02-17 12:38 | PC.NURSE ---
LLL RLL SLIGHT EXP WHEEZING. RLL EXP WHEEZING DISAPPEARS AFTER COUGHING.
[2020-02-17] MEDS: Lactated Ringers 1,000 ML 150 ML IVCONT (12:42)
[2020-02-17 12:49] LABS: Glucose, Whole Blood 110 mg/dL (60-115)
--- NOTE | 2020-02-17 16:02 | PM.EVENT ---
Event Note Date of Service: 02/17/20 Event Note: The patient was seen and evaluated this morning Had an ERCP which was unsuccessful secondary to edema Follow blood work in the morning continue antibiotics Start clear diet and Keep NPO post midnight To try ERCP tomorrow
[2020-02-17 16:36] LABS: Glucose, Whole Blood 115 mg/dL (60-115)
[2020-02-17] MEDS: Lactated Ringers 1,000 ML 125 ML IVCONT (18:00)
[2020-02-17 20:01] LABS: Glucose, Whole Blood 108 mg/dL (60-115)
[2020-02-18] VITALS (13 sets, daily range): BP systolic 124–160; BP diastolic 47–74; PULSE 47–75; RESP 13–19; TEMP 36.3–36.9; O2SAT 90–99
[2020-02-18] MEDS: Piperacillin Sodium/Tazobactam 3.375 GM in 0.9 % Sodium Chloride 50 ML IV ×3 (00:12→17:31)
[2020-02-18] MEDS: 0.9 % Sodium Chloride Flush 3 ML SYRINGE IVFLUSH ×3 (00:13→17:38)
[2020-02-18] MEDS: Lactated Ringers 1,000 ML 125 ML IVCONT ×2 (02:46→10:03)
[2020-02-18 05:40] LABS: Hematocrit 30.8 % (37-47); Hemoglobin 10.1 g/dl (12.0-16.0); Mean Corpuscular HGB Conc 32.8 g/dl (31.0-35.0); Mean Corpuscular Hemoglobin 23.8 pg (27.0-33.0); Mean Corpuscular Volume 72.6 fL (80-98); Mean Platelet Volume 10.8 fL (9.4-12.3); Platelet Count 190 X10*3/uL (160-400); Red Blood Count 4.24 X10*6/uL (4.20-5.50); Red Cell Distribution Width 17.4 % (11.0-16.0); White Blood Count 8.2 X10*3/uL (4.8-10.8)
[2020-02-18 05:56] LABS: Alanine Aminotransferase 126 U/L (0-31); Albumin Level 3.2 g/dL (3.5-5.0); Alkaline Phosphatase 236 U/L (39-117); Anion Gap 13 (12-20); Aspartate Amino Transferase 123 U/L (5-31); Bilirubin Direct 4.8 mg/dL (0.0-0.5); Blood Urea Nitrogen 9 mg/dL (9-16); Carbon Dioxide 23 mmol/L (22-29); Chloride 107 mmol/L (96-108); Creatinine Clr Calc Pharmacy 82.9; Estimated Glomerular Filt Rate > 60; Glucose Random 75 mg/dL (60-115); Potassium 3.3 mmol/l (3.3-5.1); Sodium 140 mmol/L (135-145); Total Protein 6.2 g/dL (6.5-8.0)
[2020-02-18] MEDS: oxyCODONE HCl Immed Release 5 MG TABLET PO ×2 (07:40→09:11)
--- NOTE | 2020-02-18 07:44 | P.PNGS_ITS ---
Subjective Subjective Date of Service: 02/18/20 <Amy Nguyen PA-C - Last Filed: 02/18/20 07:47> 02/18/20 <Marco A Pimentel MD - Last Filed: 02/18/20 08:38> Interval history: Continues with epigastric/RUQ pain. Medication helping but does not last long. Awaiting ERCP again today. <Amy Nguyen PA-C - Last Filed: 02/18/20 07:47> Physical Exam Vital Signs: Vital Signs: Last Vital Signs Temp 98.5 F 02/18/20 07:08 Pulse 52 02/18/20 07:08 Resp 17 02/18/20 07:08 BP 148/68 H 02/18/20 07:08 Pulse Ox 96 02/18/20 07:08 Body Mass Index 28.3 <Amy Nguyen PA-C - Last Filed: 02/18/20 07:47> Const: General: healthy appearing, alert and other (in pain) <Amy Nguyen PA-C - Last Filed: 02/18/20 07:47> Orientation/consciousness: patient oriented x3 <Amy Nguyen PA-C - Last Filed: 02/18/20 07:47> Eyes: Sclerae: scleral abnormal (icteric) <Amy Nguyen PA-C - Last Filed: 02/18/20 07:47> Resp: Effort & Inspection: normal respiratory effort <Amy Nguyen PA-C - Last Filed: 02/18/20 07:47> GI: Inspection: No distended <Amy Nguyen PA-C - Last Filed: 02/18/20 07:47> Palpation (GI): Soft to palpation, Tenderness to palpation present (GI) in the epigastrum, in the RUQ and Escobar's sign positive, no guarding and not rigid <PRINCE Kessler Last Filed: 02/18/20 07:47> Skin: General skin exam: jaundice <PRINCE Kessler Last Filed: 02/18/20 07:47> Neuro: General: patient oriented x3 <Amy Nguyen PA-C - Last Filed: 02/18/20 07:47> Extrem: General: Yes no clubbing, cyanosis or edema <Amy Nguyen PA-C - Last Filed: 02/18/20 07:47> Progress Note: A&P Assessment and plan (1) Elevated LFTs: Status: Acute <Amy Nguyen PA-C - Last Filed: 02/18/20 07:47> (2) Choledocholithiasis with acute cholecystitis: Status: Acute <Amy Nguyen PA-C - Last Filed: 02/18/20 07:47> Assessment and Plan: S/p unsuccessful ERCP yesterday. LFTs trending up and pain persistent. Plan for repeat today. Cont NPO, IVF, IV zosyn. CCY when bili normalizes. <Amy Nguyen PA-C - Last Filed: 02/18/20 07:47> CBD stone on CAT scan Continues to have pain consistent with CBD obstruction Unsuccessful ERCP yesterday As per GI, repeat ERCP today LFTs continue to rise Seen and examined -agree with GAB Nguyen <Marco A Pimentel MD - Last Filed: 02/18/20 08:38> Fall Risk Details Current Medications: Current Medications Generic Name Dose Route Start Last Admin Trade Name Freq PRN Reason Stop Dose Admin Acetaminophen 650 mg 02/17/20 03:01 Acetaminophen 325 Mg Tablet PO Q6H PRN Pain, Mild (Pain Scale 1-3) Acetaminophen 650 mg 02/17/20 12:30 Acetaminophen 325 Mg Tablet PO ONCE PRN Pain, Mild (Pain Scale 1-3) Albuterol Sulfate 2.5 mg 02/17/20 12:30 Albuterol Sulfate (0.083%) 2.5 Mg/3 Ml Vial.Neb INHALE ONCE PRN Wheezing Albuterol Sulfate 2.5 mg 02/17/20 13:40 Albuterol Sulfate (0.083%) 2.5 Mg/3 Ml Vial.Neb INHALE ONCE PRN Wheezing Fentanyl 25 mcg 02/17/20 12:30 Fentanyl Citrate/Pf 100 Mcg/2 Ml Vial IVPUSH Q5M PRN Pain, Moderate (Pain Scale 4-6 Fentanyl 50 mcg 02/17/20 13:40 Fentanyl Citrate/Pf 100 Mcg/2 Ml Vial IVPUSH Q5M PRN Pain, Severe (Pain Scale 7-10) Hydromorphone HCl 0.5 mg 02/17/20 03:17 02/17/20 08:52 Hydromorphone Hcl 0.5 Mg/0.5 Ml Syringe IVPUSH 0.5 mg Q6H PRN Administration Pain, Severe (Pain Scale 7-10) Piperacillin Sod/Tazobactam 50 mls @ 100 mls/hr 02/17/20 06:00 02/18/20 07:06 Sod 3.375 gm/ Sodium Chloride IV Infused Q6H UNIQUE Infusion Lactated Ringer's 1,000 mls @ 125 mls/hr 02/17/20 12:45 02/18/20 07:06 Lr IVCONT 125 mls/hr .Q8H UNIQUE Infusion Promethazine HCl 6.25 mg/ 50.25 mls @ 201 mls/hr 02/17/20 13:40 Sodium Chloride IV ONCE PRN Nausea and Vomiting Insulin Human Lispro 0 unit 02/17/20 07:30 02/17/20 20:56 Insulin Lispro 100 Unit/Ml 3 Ml Vial SUBCUT Not Given QIDACHS [facility] Protocol Oxycodone HCl 5 mg 02/17/20 13:40 Oxycodone Hcl Immed Release 5 Mg Tablet PO ONCE PRN Pain, Severe (Pain Scale 7-10) Pharmacy Consult 1 each 02/17/20 00:54 Consult Rx Perform Med Rec MISCELLANE ONCE PRN Consult order Sodium Chloride 3 ml 02/17/20 08:00 02/18/20 07:38 0.9 % Sodium Chloride Flush 3 Ml Syringe IVFLUSH 3 ml QSHIFT UNIQUE Administration <Amy Nguyen PA-C - Last Filed: 02/18/20 07:47> Time Spent With Patient Time: Total time spent is greater than 50% in coordination of care (as documented) at patient's floor/unit and/or counseling patient: <Amy Nguyen PA-C - Last Filed: 02/18/20 07:47> Time with patient: 15 - 24 minutes <Amy Nguyen PA-C - Last Filed: 02/18/20 07:47>
[2020-02-18 08:02] LABS: Glucose, Whole Blood 85 mg/dL (60-115)
[2020-02-18 08:22] LABS: ~Hepatitis A Antibody IgM Nonreactive (Nonreactive)
[2020-02-18] MEDS: HYDROmorphone HCl 0.5 MG/0.5 ML SYRINGE IVPUSH (10:02)
[2020-02-18] MEDS: Ketorolac Tromethamine 15 MG/ML VIAL IVPUSH (10:37)
--- NOTE | 2020-02-18 11:06 | HO.POSTANES ---
Post Anesthesia Evaluation Post Anesthesia Evaluation Vital Signs: Vital Signs Temp Pulse Resp BP Pulse Ox 02/18/20 07:08 98.5 F 52 17 148/68 H 96 02/18/20 04:00 98.4 F 56 18 127/59 L 93 02/18/20 00:00 98.3 F 52 18 127/74 98 Anesthesia: General Endotracheal-GETA Mental Status: Awake Pain Control: Satisfactory Nausea/Vomiting: None Hydration: Adequate Anesthesia-Related Issues: No Anes. Related Issues
--- NOTE | 2020-02-18 11:35 | MHC.CM.PN ---
Repeat ERCP pending. Goal for dc is Home, no services. CM will continue to follow for dc planning and possible need to adjust the dc plan.
[2020-02-18 11:50] LABS: Glucose, Whole Blood 86 mg/dL (60-115)
--- NOTE | 2020-02-18 12:16 | FL_ITS ---
EXAMINATION: XR FLUOROSCOPY WITH IMAGES CLINICAL INFORMATION: Biliary ductal dilatation with questionable filling defect distal CBD. ERCP. COMPARISON: Fluoroscopic spot images 02/17/2020, CT abdomen and pelvis with contrast 02/17/2020. TECHNIQUE: Fluoroscopy performed by Dr. Fierro. Fluoroscopy time: 2.4 minutes DAP: 18.0 Gycm2 Images: 3 FINDINGS: There is nonspecific contrast adjacent to the distal end endoscope. FL/FL guidance in OR IMPRESSION: Fluoroscopy for gastroenterology procedure.
--- NOTE | 2020-02-18 12:54 | P.PNIM_ITS ---
Subjective Subjective Date of Service: 02/18/20 Interval History: the patient was seen and evaluated this morning This comfortable, complaining of pain in abdomen epigastric area Denies any fever, chills or shortness of breath No reported other overnight events. Systemic review: No fever, chills or weakness No chest pain, palpitation No shortness of breath or coughing Right upper quadrant abdominal pain, with no reported nausea or vomiting No urinary symptoms No any rash or wounds Physical Exam Vital Signs: Vital Signs: Last Vital Signs Temp 98.2 F 02/18/20 12:08 Pulse 47 L 02/18/20 12:08 Resp 16 02/18/20 12:08 BP 131/61 02/18/20 12:08 Pulse Ox 98 02/18/20 12:08 Body Mass Index 28.3 Constitutional : Alert, oriented, not in distress Neck : Normal inspection, Supple Cardiovascular : RRR, S1 S2, no lower extremity edema Respiratory : Good bilateral air entry, no crackles, wheezes or rhonchi Gastrointestinal: soft, lax, right upper quadrant tenderness, no surgical signs Skin : Warm/Dry, No rash Neurological : Alert & oriented x3, No focal deficit Objective Data Current Medications Generic Name Dose Route Start Last Admin Trade Name Freq PRN Reason Stop Dose Admin Acetaminophen 650 mg 02/17/20 03:01 Acetaminophen 325 Mg Tablet PO Q6H PRN Pain, Mild (Pain Scale 1-3) Acetaminophen 650 mg 02/17/20 12:30 Acetaminophen 325 Mg Tablet PO ONCE PRN Pain, Mild (Pain Scale 1-3) Albuterol Sulfate 2.5 mg 02/17/20 12:30 Albuterol Sulfate (0.083%) 2.5 Mg/3 Ml Vial.Neb INHALE ONCE PRN Wheezing Albuterol Sulfate 2.5 mg 02/17/20 13:40 Albuterol Sulfate (0.083%) 2.5 Mg/3 Ml Vial.Neb INHALE ONCE PRN Wheezing Fentanyl 25 mcg 02/17/20 12:30 Fentanyl Citrate/Pf 100 Mcg/2 Ml Vial IVPUSH Q5M PRN Pain, Moderate (Pain Scale 4-6 Fentanyl 50 mcg 02/17/20 13:40 Fentanyl Citrate/Pf 100 Mcg/2 Ml Vial IVPUSH Q5M PRN Pain, Severe (Pain Scale 7-10) Hydromorphone HCl 0.5 mg 02/17/20 03:17 02/18/20 10:02 Hydromorphone Hcl 0.5 Mg/0.5 Ml Syringe IVPUSH 0.5 mg Q6H PRN Administration Pain, Severe (Pain Scale 7-10) Piperacillin Sod/Tazobactam 50 mls @ 100 mls/hr 02/17/20 06:00 02/18/20 12:02 Sod 3.375 gm/ Sodium Chloride IV Not Given Q6H [facility] Lactated Ringer's 1,000 mls @ 125 mls/hr 02/17/20 12:45 02/18/20 10:03 Lr IVCONT 125 mls/hr .Q8H [facility] Administration Promethazine HCl 6.25 mg/ 50.25 mls @ 201 mls/hr 02/17/20 13:40 Sodium Chloride IV ONCE PRN Nausea and Vomiting Insulin Human Lispro 0 unit 02/17/20 07:30 02/18/20 11:40 Insulin Lispro 100 Unit/Ml 3 Ml Vial SUBCUT Not Given QIDACHS [facility] [place] Protocol Ketorolac Tromethamine 15 mg 02/18/20 10:17 Ketorolac Tromethamine 15 Mg/Ml Vial IVPUSH Q6H PRN Pain, Moderate (Pain Scale 4-6 Pharmacy Consult 1 each 02/17/20 00:54 Consult Rx Perform Med Rec MISCELLANE ONCE PRN Consult order Sodium Chloride 3 ml 02/17/20 08:00 02/18/20 07:38 0.9 % Sodium Chloride Flush 3 Ml Syringe IVFLUSH 3 ml QSHIFT [facility] Administration Labs CBC & Chem 7: 02/18/20 04:11 02/18/20 04:11 Microbiology Microbiology Results: Microbiology 02/16/20 Unknown Urine clean catch - Clean Catch Midstream Urine Culture - Final No growth. 02/17/20 00:33 Blood - Venous Blood Culture - Preliminary No growth after 24 hours. 02/17/20 00:33 Blood - Venous Blood Culture - Preliminary No growth after 24 hours. Assessment and Plan (1) UTI (urinary tract infection): Status: Acute (2) Choledocholithiasis with acute cholecystitis: Status: Acute Assessment and Plan: 54-year-old female with a past medical history of diabetes, recent UTI diagnosis presented to the hospital with a chief complaint of epigastric pain/right upper quadrant abdominal pain-noted to have acute cholecystitis/dilated biliary ducts/CBD filling defect/transaminitis. Admitted to the hospital for further management Acute cholecystitis Blood cultures pending Continued on IV Zosyn. Continue IV fluids Zofran p.r.n. Pain control Surgery input appreciated, CCY when bilirubin normalize Obstructed biliary stone CBD stone noticed on CT scan Reported ERCP 1229 was unsuccessful Kept NPO overnight To try ERCP again later today Transaminitis Stable, worsening slowly In setting of acute cholecystitis and obstruction Continue to monitor daily Hepatitis-C Tested positive on screening To follow-up as outpatient for initiation of treatment Diabetes mellitus Insulin sliding scale Tobacco dependence Patient denied nicotine patch currently DVT prophylaxis SCD boots (3) Elevated LFTs: Status: Acute (4) Hyperglycemia: Status: Acute (5) Positive hepatitis C antibody test: Status: Acute
--- NOTE | 2020-02-18 13:02 | P.CONAN_ITS ---
[facility] Past Medical History Medical History Hyperglycemia No known health problems Surgical History Surgical History History of tubal ligation Social History Social History Household Members: Spouse Housing: House Do you presently have visiting nurse or other home services: No Alcohol intake: former Smoking Status: Current every day smoker Tobacco Type: Cigarette Cigarettes Per Day: 5 Years Smoked: 39 Smoked in Last 30 Days: Yes Patient Interested in Nicotine Replacement: Yes Patient Given Instructions on How to Stop Smoking: Yes Date Education Initiated: 02/17/20 Second Hand Smoke Exposure: Yes Use of substances other than those prescribed or required for medical reasons: No Currently Displaying Signs/Symptoms of Drug Intoxication Withdrawal: No Have you been hit, kicked, punched, or otherwise hurt by someone within the past year? If so, by whom?: No Do you feel safe in your current relationship?: No Is there a partner from a previous relationship who is making you feel unsafe now?: No Are you made to feel afraid or neglected: No Advance Directives: No Advance Directives Information Provided: No Advance Directives on File: No Do you have thoughts of harming others: None Do you have a plan to hurt others: No Plan Recently lost weight without trying: No service: No Current occupational status: employed Meds Allergies Allergy/AdvReac Type Severity Reaction Status Date / Time No Known Allergies Allergy Verified 02/16/20 20:58 Home Medications Medication Instructions Recorded Confirmed Type ondansetron [Zofran ODT] 4 mg TRANSLINGUAL Q6H PRN 02/17/20 02/17/20 History phenazopyridine 200 mg PO TID PRN 02/17/20 02/17/20 History Exam Exam Date and Time: February 18, 2020 1302 Height,Weight and Vital Signs: Height 5 ft 1 in Weight 68.039 kg Last Vital Signs Temp 98.2 F 02/18/20 12:08 Pulse 47 L 02/18/20 12:08 Resp 16 02/18/20 12:08 BP 131/61 02/18/20 12:08 Pulse Ox 98 02/18/20 12:08 Pertinent Lab Results Pertinent Lab Results: Laboratory Tests 02/16/20 02/16/20 02/16/20 21:35 21:35 21:35 WBC 11.2 H RBC 4.95 Hgb 11.8 L Hct 35.7 L MCV 72.1 L MCH 23.8 L MCHC 33.1 RDW 17.2 H Plt Count 238 MPV 10.3 Immature Gran % (Auto) 0.4 Neut % (Auto) 76.3 H Lymph % (Auto) 16.2 L [place] % (Auto) 6.5 Eos % (Auto) 0.3 Baso % (Auto) 0.3 Lymph # (Auto) 1.8 [place] # (Auto) 0.7 Eos # (Auto) 0.0 Baso # (Auto) 0.0 Abs Immat Gran (auto) 0.04 H Absolute Neuts (auto) 8.6 H Absolute Nucleated RBC 0.000 Nucleated RBC % (auto) 0.0 PT 12.6 INR 1.1 APTT 35.5 Hold Blue Top SEE NOTE Sodium 138 Potassium 3.8 Chloride 104 Carbon Dioxide 24 Anion Gap 14 BUN 8 L Creatinine 0.74 Estim Creat Clear Calc 78.5 Estimated GFR > 60 POC Glucose Random Glucose 150 H Estimat Average Glucose Hemoglobin A1c % Lactic Acid Calcium 8.6 Total Bilirubin 5.1 H Direct Bilirubin AST 137 H ALT 164 H Alkaline Phosphatase 288 H D Total Protein 7.7 Albumin 4.0 Lipase 7 L Urine Color Urine Appearance Urine pH Ur Specific [place] Urine Protein Urine Glucose (UA) Urine Ketones Urine Blood Urine Nitrite Ur Leukocyte Esterase Urine RBC Urine WBC Ur Squamous Epith Cells Urine Bacteria Urine Test Acetone, Qual Negative COVID-19 (LANCE) COVID-19 Clin Com Hepatitis A IgM Ab Hep Bs Antigen Hep Bs Antibody Hep B Core Total Ab Hepatitis C Ab (EIA) 02/16/20 02/16/20 02/17/20 21:35 21:35 00:33 WBC RBC Hgb Hct MCV MCH MCHC RDW Plt Count MPV Immature Gran % (Auto) Neut % (Auto) Lymph % (Auto) [place] % (Auto) Eos % (Auto) Baso % (Auto) Lymph # (Auto) [place] # (Auto) Eos # (Auto) Baso # (Auto) Abs Immat Gran (auto) Absolute Neuts (auto) Absolute Nucleated RBC Nucleated RBC % (auto) PT INR APTT Hold Blue Top Sodium Potassium Chloride Carbon Dioxide Anion Gap BUN Creatinine Estim Creat Clear Calc Estimated GFR POC Glucose Random Glucose Estimat Average Glucose Hemoglobin A1c % Lactic Acid 0.8 Calcium Total Bilirubin Direct Bilirubin AST ALT Alkaline Phosphatase Total Protein Albumin Lipase Urine Color ORANGE Urine Appearance CLEAR Urine pH 6.5 Ur Specific [place] 1.015 Urine Protein 3+ H Urine Glucose (UA) 500 H Urine Ketones 15 Urine Blood NEG Urine Nitrite POS H Ur Leukocyte Esterase 2+ H Urine RBC 0-2 Urine WBC 0-2 Ur Squamous Epith Cells TRACE Urine Bacteria NONE Urine Test NEGATIVE Acetone, Qual COVID-19 (LANCE) COVID-19 Clin Com Hepatitis A IgM Ab Nonreactive Hep Bs Antigen Negative Hep Bs Antibody NONREACTIVE Hep B Core Total Ab Nonreactive Hepatitis C Ab (EIA) Reactive H 02/17/20 02/17/20 02/17/20 02:54 07:30 08:49 WBC RBC Hgb Hct MCV MCH MCHC RDW Plt Count MPV Immature Gran % (Auto) Neut % (Auto) Lymph % (Auto) [place] % (Auto) Eos % (Auto) Baso % (Auto) Lymph # (Auto) [place] # (Auto) Eos # (Auto) Baso # (Auto) Abs Immat Gran (auto) Absolute Neuts (auto) Absolute Nucleated RBC Nucleated RBC % (auto) PT INR APTT Hold Blue Top Sodium Potassium Chloride Carbon Dioxide Anion Gap BUN Creatinine Estim Creat Clear Calc Estimated GFR POC Glucose 123 H 127 H Random Glucose Estimat Average Glucose Hemoglobin A1c % Lactic Acid Calcium Total Bilirubin Direct Bilirubin AST ALT Alkaline Phosphatase Total Protein Albumin Lipase Urine Color Urine Appearance Urine pH Ur Specific [place] Urine Protein Urine Glucose (UA) Urine Ketones Urine Blood Urine Nitrite Ur Leukocyte Esterase Urine RBC Urine WBC Ur Squamous Epith Cells Urine Bacteria Urine Test Acetone, Qual COVID-19 (ALNCE) Negative COVID-19 Clin Com See Note Hepatitis A IgM Ab Hep Bs Antigen Hep Bs Antibody Hep B Core Total Ab Hepatitis C Ab (EIA) 02/17/20 02/17/20 02/17/20 09:09 09:09 09:09 WBC 8.4 RBC 4.65 Hgb 10.9 L Hct 33.4 L MCV 71.8 L MCH 23.4 L MCHC 32.6 RDW 17.2 H Plt Count 221 MPV 10.6 Immature Gran % (Auto) 0.5 H Neut % (Auto) 71.3 Lymph % (Auto) 19.9 L [place] % (Auto) 7.7 Eos % (Auto) 0.2 Baso % (Auto) 0.4 Lymph # (Auto) 1.7 [place] # (Auto) 0.7 Eos # (Auto) 0.0 Baso # (Auto) 0.0 Abs Immat Gran (auto) 0.04 H Absolute Neuts (auto) 6.0 Absolute Nucleated RBC 0.000 Nucleated RBC % (auto) 0.0 PT 12.2 INR 1.0 APTT Hold Blue Top Sodium Potassium Chloride Carbon Dioxide Anion Gap BUN Creatinine Estim Creat Clear Calc Estimated GFR POC Glucose Random Glucose Estimat Average Glucose Hemoglobin A1c % Lactic Acid Calcium Total Bilirubin 5.0 H Direct Bilirubin 4.2 H AST 116 H ALT 139 H Alkaline Phosphatase 255 H Total Protein 6.9 Albumin 3.6 Lipase Urine Color Urine Appearance Urine pH Ur Specific [place] Urine Protein Urine Glucose (UA) Urine Ketones Urine Blood Urine Nitrite Ur Leukocyte Esterase Urine RBC Urine WBC Ur Squamous Epith Cells Urine Bacteria Urine Test Acetone, Qual COVID-19 (LANCE) COVID-19 Clin Com Hepatitis A IgM Ab Hep Bs Antigen Hep Bs Antibody Hep B Core Total Ab Hepatitis C Ab (EIA) 02/17/20 02/17/20 02/17/20 09:09 09:10 11:25 WBC RBC Hgb Hct MCV MCH MCHC RDW Plt Count MPV Immature Gran % (Auto) Neut % (Auto) Lymph % (Auto) [place] % (Auto) Eos % (Auto) Baso % (Auto) Lymph # (Auto) [place] # (Auto) Eos # (Auto) Baso # (Auto) Abs Immat Gran (auto) Absolute Neuts (auto) Absolute Nucleated RBC Nucleated RBC % (auto) PT INR APTT Hold Blue Top Sodium 138 Potassium 3.3 Chloride 107 Carbon Dioxide 20 L Anion Gap 14 BUN 5 L Creatinine 0.60 Estim Creat Clear Calc 96.7 Estimated GFR > 60 POC Glucose 104 Random Glucose 112 Estimat Average Glucose 146 Hemoglobin A1c % 6.7 Lactic Acid Calcium 8.0 L D Total Bilirubin Direct Bilirubin AST ALT Alkaline Phosphatase Total Protein Albumin Lipase Urine Color Urine Appearance Urine pH Ur Specific [place] Urine Protein Urine Glucose (UA) Urine Ketones Urine Blood Urine Nitrite Ur Leukocyte Esterase Urine RBC Urine WBC Ur Squamous Epith Cells Urine Bacteria Urine Test Acetone, Qual COVID-19 (LANCE) COVID-19 Clin Com Hepatitis A IgM Ab Hep Bs Antigen Hep Bs Antibody Hep B Core Total Ab Hepatitis C Ab (EIA) 02/17/20 02/17/20 02/17/20 12:35 16:33 19:56 WBC RBC Hgb Hct MCV MCH MCHC RDW Plt Count MPV Immature Gran % (Auto) Neut % (Auto) Lymph % (Auto) [place] % (Auto) Eos % (Auto) Baso % (Auto) Lymph # (Auto) [place] # (Auto) Eos # (Auto) Baso # (Auto) Abs Immat Gran (auto) Absolute Neuts (auto) Absolute Nucleated RBC Nucleated RBC % (auto) PT INR APTT Hold Blue Top Sodium Potassium Chloride Carbon Dioxide Anion Gap BUN Creatinine Estim Creat Clear Calc Estimated GFR POC Glucose 110 115 108 Random Glucose Estimat Average Glucose Hemoglobin A1c % Lactic Acid Calcium Total Bilirubin Direct Bilirubin AST ALT Alkaline Phosphatase Total Protein Albumin Lipase Urine Color Urine Appearance Urine pH Ur Specific [place] Urine Protein Urine Glucose (UA) Urine Ketones Urine Blood Urine Nitrite Ur Leukocyte Esterase Urine RBC Urine WBC Ur Squamous Epith Cells Urine Bacteria Urine Test Acetone, Qual COVID-19 (LANCE) COVID-19 Clin Com Hepatitis A IgM Ab Hep Bs Antigen Hep Bs Antibody Hep B Core Total Ab Hepatitis C Ab (EIA) 02/18/20 02/18/20 02/18/20 04:11 04:11 07:58 WBC 8.2 RBC 4.24 Hgb 10.1 L Hct 30.8 L MCV 72.6 L MCH 23.8 L MCHC 32.8 RDW 17.4 H Plt Count 190 MPV 10.8 Immature Gran % (Auto) Neut % (Auto) Lymph % (Auto) [place] % (Auto) Eos % (Auto) Baso % (Auto) Lymph # (Auto) [place] # (Auto) Eos # (Auto) Baso # (Auto) Abs Immat Gran (auto) Absolute Neuts (auto) Absolute Nucleated RBC 0.000 Nucleated RBC % (auto) 0.0 PT INR APTT Hold Blue Top Sodium 140 Potassium 3.3 Chloride 107 Carbon Dioxide 23 Anion Gap 13 BUN 9 D Creatinine 0.70 Estim Creat Clear Calc 82.9 Estimated GFR > 60 POC Glucose 85 Random Glucose 75 Estimat Average Glucose Hemoglobin A1c % Lactic Acid Calcium 8.0 L Total Bilirubin 6.0 H Direct Bilirubin 4.8 H AST 123 H ALT 126 H Alkaline Phosphatase 236 H Total Protein 6.2 L Albumin 3.2 L Lipase Urine Color Urine Appearance Urine pH Ur Specific [place] Urine Protein Urine Glucose (UA) Urine Ketones Urine Blood Urine Nitrite Ur Leukocyte Esterase Urine RBC Urine WBC Ur Squamous Epith Cells Urine Bacteria Urine Test Acetone, Qual COVID-19 (LANCE) COVID-19 Clin Com Hepatitis A IgM Ab Hep Bs Antigen Hep Bs Antibody Hep B Core Total Ab Hepatitis C Ab (EIA) 02/18/20 11:39 WBC RBC Hgb Hct MCV MCH MCHC RDW Plt Count MPV Immature Gran % (Auto) Neut % (Auto) Lymph % (Auto) [place] % (Auto) Eos % (Auto) Baso % (Auto) Lymph # (Auto) [place] # (Auto) Eos # (Auto) Baso # (Auto) Abs Immat Gran (auto) Absolute Neuts (auto) Absolute Nucleated RBC Nucleated RBC % (auto) PT INR APTT Hold Blue Top Sodium Potassium Chloride Carbon Dioxide Anion Gap BUN Creatinine Estim Creat Clear Calc Estimated GFR POC Glucose 86 Random Glucose Estimat Average Glucose Hemoglobin A1c % Lactic Acid Calcium Total Bilirubin Direct Bilirubin AST ALT Alkaline Phosphatase Total Protein Albumin Lipase Urine Color Urine Appearance Urine pH Ur Specific [place] Urine Protein Urine Glucose (UA) Urine Ketones Urine Blood Urine Nitrite Ur Leukocyte Esterase Urine RBC Urine WBC Ur Squamous Epith Cells Urine Bacteria Urine Test Acetone, Qual COVID-19 (LANCE) COVID-19 Clin Com Hepatitis A IgM Ab Hep Bs Antigen Hep Bs Antibody Hep B Core Total Ab Hepatitis C Ab (EIA) Airway Heart: RRR Lungs: CTA
--- NOTE | 2020-02-18 13:05 | MHC.SHP ---
Pre-Procedural Eval Section A The patient is an INPATIENT: Yes The History & Physical has been completed within 30 days and I have reviewed it.: Yes Section B Chief Complaint: Cholecystitis Details of Present Illness: reattempt ERCP Allergies: Allergies Allergy/AdvReac Type Severity Reaction Status Date / Time No Known Allergies Allergy Verified 02/16/20 20:58 Plan Diagnosis/Plan: Unchanged I have reviewed the history and physical and performed a pertinent physical examination on my patient. No changes have occurred unless specified.
[2020-02-18] MEDS: Indomethacin 50 MG SUPP.RECT 100 MG PR (13:07)
[2020-02-18] MEDS: Lactated Ringers 1,000 ML 150 ML IVCONT (13:09)
--- NOTE | 2020-02-18 14:26 | PM.OP ---
Brief Operative Note Date of Service: 02/18/20 Pre-op diagnosis: reattempt at ERCP for choledocholithiasis Post-op diagnosis: same Procedure: Description: Endoscopic retrograde cholangiopancreatography (ERCP) PROCEDURE: Endoscopic retrograde cholangiopancreatography INDICATION FOR THE PROCEDURE: Patient with CBD stones, failed ERCP yesterday MEDICATIONS: General anesthesia, rectal indomethacin 100 mg, The risks of the procedure were made aware to the patient and consisted of medication reaction, bleeding, perforation, aspiration, and post ERCP pancreatitis. DESCRIPTION OF PROCEDURE: After informed consent and appropriate sedation, the duodenoscope was inserted into the oropharynx, down the esophagus, and into the stomach. The scope was then advanced through the pylorus to the ampulla. The ampulla was still a little edematous from yesterday, it was difficult to identify an orifice. The tome was angled to the 11 o'clock position and appeared to be engaged, the wire was threaded thru but was looping, injection of contrast went into submucosa. This happened a few times, and it became more difficult to identify landmarks even with gentle probing. At this point the procedure was abandoned. The stomach was then decompressed and the endoscope was withdrawn. FINDINGS: 1. unsuccessful ERCP, atrophic ampullary orifice RECOMMENDATIONS: 1. NPO except ice chips for next 4-6 hrs then clears as tolerated 2. Recommend referral to [facility] or [facility], may need PTC or reattempt by another plastics seasoner operator vs more advanced access techniques such as EUS guided cannulation. Surgeon: Eleuterio Fierro MD Anesthesia: GETA Estimated blood loss (mL): 0 Condition: stable Disposition: PACU
--- NOTE | 2020-02-18 14:30 | HO.POSTANES ---
Post Anesthesia Evaluation Post Anesthesia Evaluation Vital Signs: Vital Signs Temp Pulse Resp BP Pulse Ox 02/18/20 12:08 98.2 F 47 L 16 131/61 98 02/18/20 11:37 97.4 F 53 17 124/69 97 02/18/20 07:08 98.5 F 52 17 148/68 H 96 02/18/20 04:00 98.4 F 56 18 127/59 L 93 Anesthesia: General Endotracheal-GETA Mental Status: Awake Pain Control: Satisfactory Nausea/Vomiting: None Hydration: Adequate Anesthesia-Related Issues: No Anes. Related Issues
--- NOTE | 2020-02-18 14:47 | P.DS_ITS ---
DS: Providers Provider Date of admission: 02/17/20 03:01 Primary care physician: None Physician Consults: 02/17/20 03:01 Consult to Gastroenterology Routine Consulting Provider: Perla Hook Reason for consultation: Choledocholithiasis, CBD filling defect, elevated T bili. Has provider been notified: No Consult to General Surgery Routine Consulting Provider: Marco A Pimentel Reason for consultation: Acute cholecystitis Has provider been notified: No DS: Diagnosis Discharge Diagnosis (1) Choledocholithiasis with acute cholecystitis: Status: Acute (2) Elevated LFTs: Status: Acute (3) Hyperglycemia: Status: Acute (4) Positive hepatitis C antibody test: Status: Acute (5) Gallbladder & bile duct stone, acute cholecystitis and obstruction: Status: Acute DS: Medications Discharge Medications Home Medications: Home Medications Medication Instructions Recorded Confirmed ondansetron [Zofran ODT] 4 mg TRANSLINGUAL Q6H PRN 02/17/20 02/17/20 phenazopyridine 200 mg PO TID PRN 02/17/20 02/17/20 DS: Summary Hospital Course Hospital Course: Admission note HPI 54-year-old female with past medical history diabetes recent UTI presented to the hospital with a chief complaint of epigastric/right upper quadrant abdominal pain. Patient mentioned that since she was diagnosed with UTI, she has been having epigastric pain and right upper abdominal pain associated with nausea vomiting. Denies any blood in the vomitus. Denies any fever chills cough. Denies any chest pain palpitations lightheadedness or dizziness. Denies any recent travel or sick contacts. Review of all other systems is negative except mentioned above ER course: ER team patient was noted to have prep 179/69, tender in the right upper quadrant right upper quadrant ultrasound showed acute cholecystitis; CT abdomen pelvis showed dilated intra and extrahepatic biliary ducts; filling defect in the CBD; noted to elevated team B of 5.1, elevated liver enzymes and alk-phos; given IV Zosyn. Discussed with Dr. Pimentel from General surgery who mentioned that we will follow the patient months patient ERCP from GI. Also spoke to Dr. hook from Gastroenterology who mentioned to continue Zosyn and to keep the patient NPO for possible ERCP in the morning. Hospital course The patient was admitted to the hospital for evaluation of epigastric and right upper quadrant pain and tenderness. Images including ultrasound and CT scan of the abdomen was consistent with dilated intra and extrahepatic biliary ducts with CBD filling defect and stone causing obstruction and resulting in transaminitis and acute cholecystitis picture. Lipase was normal. The patient was treated primarily with IV fluid, started on IV Zosyn as blood cultures remain negative during her hospital stay. Evaluated the by Gastroenterology who attempted ERCP on 02/16 with reported significant anemia and difficulty cannulating the orifice. A re-attempt was done on February 17 with the same result as no cannulation was possible. Discussed with [facility] who will accept the patient for possible EUS guided drainage or PCT. Time Spent with Patient Time attestation: Total time spent providing and/or coordinating discharge services: Physical Exam Vital Signs: Vital Signs: Last Vital Signs Temp 98.2 F 02/18/20 14:29 Pulse 66 02/18/20 14:44 Resp 13 02/18/20 14:44 BP 156/74 H 02/18/20 14:44 Pulse Ox 97 02/18/20 14:44 Body Mass Index 28.3 Constitutional : Alert, oriented, not in distress Neck : Normal inspection, Supple Cardiovascular : RRR, S1 S2, no lower extremity edema Respiratory : Good bilateral air entry, no crackles, wheezes or rhonchi Gastrointestinal: soft, lax, right upper quadrant tenderness, no surgical signs Skin : Warm/Dry, No rash Neurological : Alert & oriented x3, No focal deficit DS: Data Data Completed and Pending Labs on day of discharge: Abdomen Ultrasound 02/16/20 22:27 IMPRESSION: Cholelithiasis with trace pericholecystic fluid. Intrahepatic and extrahepatic biliary ductal dilatation. These findings are suspicious for acute cholecystitis. Abdomen/Pelvis CT 02/17/20 00:12 IMPRESSION: Intrahepatic and extrahepatic biliary ductal dilatation with questionable filling defect in the distal common bile duct. There is cholelithiasis present with trace pericholecystic fluid. The findings remain suspicious for acute cholecystitis. Possible choledocholithiasis. 02/16/20 Urine Culture Routine 02/16/20 21:35 Acetone, serum QL Stat Complete Blood Count Auto Diff Stat Comprehensive Met. Panel Stat Hold Lt Blue - Possible Coag Stat Lipase Stat Partial Thromboplastin Time Stat Prothrombin Time INR Stat Ur Preg Test Stat 02/16/20 22:27 US abdomen limited Stat 02/16/20 22:31 Add Laboratory Test Stat Add Laboratory Test Stat 02/17/20 00:12 CT abdomen pelvis w con Stat Piperacillin Sodium/Tazobactam [Zosyn] 3.375 gm 0.9 % Sodium Chloride [Ns] 50 ml IV ONCE 02/17/20 00:21 Piperacillin Sodium/Tazobactam [Zosyn] 3.375 gm IV .STK-MED ONE 02/17/20 00:33 Lactic Acid Stat 02/17/20 00:40 HYDROmorphone HCl [Dilaudid] 0.5 mg IVPUSH ONCE ONE 02/17/20 00:42 HYDROmorphone HCl [Dilaudid] 0.5 mg .ROUTE .STK-MED ONE 02/17/20 01:28 iohexoL 350 MG/ML [Omnipaque 350 MG/ML] 85 ml IV ONCE ONE 02/17/20 01:47 0.9 % Sodium Chloride [Ns] 2,000 ml IV 999 mls/hr 02/17/20 02:22 Add Laboratory Test Stat 02/17/20 02:28 HYDROmorphone HCl [Dilaudid] 0.5 mg IVPUSH ONCE ONE 02/17/20 02:54 COVID-19 ID NOW ([place]) Stat 02/17/20 03:08 Transfer Order Routine 02/17/20 03:15 0.9 % Sodium Chloride [Ns] 1,000 ml IVCONT 100 mls/hr 02/17/20 03:17 Hepatitis A,B,C Profile Stat 02/17/20 07:30 Glucose, Whole Blood Routine 02/17/20 08:47 Piperacillin Sodium/Tazobactam [Zosyn] 3.375 gm IV .STK-MED ONE 02/17/20 08:49 Glucose, Whole Blood Routine 02/17/20 09:09 Complete Blood Count Auto Diff DAILY@0600 Hemoglobin A1c Routine Liver Panel DAILY@0600 Prothrombin Time INR DAILY 02/17/20 09:10 Basic Metabolic Panel DAILY 02/17/20 Breakfast NPO Diet 02/17/20 11:25 Glucose, Whole Blood Routine 02/17/20 12:19 Glucagon,Human Recombinant [Glucagen] 1 mg .ROUTE .STK-MED ONE iohexoL 300 MG/ML [Omnipaque 300 MG/ML] 50 ml IV .STK-MED ONE 02/17/20 12:22 fentaNYL citrate/PF [Sublimaze] 50 mcg .ROUTE .STK-MED ONE 02/17/20 12:23 propofoL [Diprivan] 200 mg IVPUSH .STK-MED ONE 02/17/20 12:24 FL guidance in OR Stat Indomethacin [Indocin] [address] ONCE ONE 02/17/20 12:30 Continuous pulse oximetry CONT Vital Signs Q1H Vital Signs Q5MIN oxyCODONE HCl Immed Release [Roxicodone] 5 mg PO ONCE PRN 02/17/20 12:35 Glucose, Whole Blood Routine 02/17/20 13:18 Rocuronium [place] [Zemuron] 100 mg IV .STK-MED ONE Succinylcholine Chloride [Quelicin] 100 mg IVPUSH .STK-MED ONE ePHEDrine sulfate 50 mg .ROUTE .STK-MED ONE ondansetron HCL [Zofran] 4 mg .ROUTE .STK-MED ONE 02/17/20 13:40 Continuous pulse oximetry CONT Vital Signs Q1H Vital Signs Q5MIN oxyCODONE HCl Immed Release [Roxicodone] 5 mg PO ONCE PRN 02/17/20 14:52 Sugammadex Sodium [Bridion] 200 mg IVPUSH .STK-MED ONE 02/17/20 16:33 Glucose, Whole Blood Routine 02/17/20 17:16 Piperacillin Sodium/Tazobactam [Zosyn] 3.375 gm IV .STK-MED ONE 02/17/20 Dinner Clear Liquid Diet 02/17/20 19:56 Glucose, Whole Blood Routine 02/18/20 00:01 Piperacillin Sodium/Tazobactam [Zosyn] 3.375 gm IV .STK-MED ONE 02/18/20 04:11 Basic Metabolic Panel DAILY@0600 Complete Blood Count no Diff DAILY@0600 Liver Panel Routine 02/18/20 06:25 Piperacillin Sodium/Tazobactam [Zosyn] 3.375 gm IV .STK-MED ONE 02/18/20 07:58 Glucose, Whole Blood Routine 02/18/20 10:17 Ketorolac Tromethamine [Toradol] 15 mg IVPUSH ONCE ONE 02/18/20 11:39 Glucose, Whole Blood Routine 02/18/20 12:12 Glucagon,Human Recombinant [Glucagen] 1 mg .ROUTE .STK-MED ONE iohexoL 300 MG/ML [Omnipaque 300 MG/ML] 50 ml IV .STK-MED ONE 02/18/20 13:03 Indomethacin [Indocin] [address] ONCE ONE Lidocaine HCl 2 % MPF [Xylocaine 2 % MPF] 5 ml .ROUTE .STK-MED ONE dexAMETHasone sod phosphate [Decadron] 4 mg .ROUTE .STK-MED ONE ondansetron HCL [Zofran] 4 mg .ROUTE .STK-MED ONE propofoL [Diprivan] 200 mg IVPUSH .STK-MED ONE 02/18/20 13:04 propofoL [Diprivan] 200 mg IVPUSH .STK-MED ONE 02/18/20 13:08 Midazolam HCl/PF [Versed] 2 mg .ROUTE .STK-MED ONE fentaNYL citrate/PF [Sublimaze] 50 mcg .ROUTE .STK-MED ONE 02/18/20 13:40 ePHEDrine sulfate 50 mg .ROUTE .STK-MED ONE 02/18/20 13:48 fentaNYL citrate/PF [Sublimaze] 50 mcg .ROUTE .STK-MED ONE 02/18/20 13:55 Glycopyrrolate [Robinul] 0.2 mg .ROUTE .STK-MED ONE 02/18/20 13:57 Glucagon,Human Recombinant [Glucagen] 1 mg .ROUTE .STK-MED ONE 02/18/20 13:59 Esmolol HCl [Brevibloc] 100,000 mcg .ROUTE .STK-MED ONE 02/18/20 14:12 fentaNYL citrate/PF [Sublimaze] 50 mcg .ROUTE .[facility]-MED ONE Laboratory Last Values WBC 8.2 X10*3/uL (4.8-10.8) 02/18/20 04:11 RBC 4.24 X10*6/uL (4.20-5.50) 02/18/20 04:11 Hgb 10.1 g/dl (12.0-16.0) L 02/18/20 04:11 Hct 30.8 % (37-47) L 02/18/20 04:11 MCV 72.6 fL (80-98) L 02/18/20 04:11 MCH 23.8 pg (27.0-33.0) L 02/18/20 04:11 MCHC 32.8 g/dl (31.0-35.0) 02/18/20 04:11 RDW 17.4 % (11.0-16.0) H 02/18/20 04:11 Plt Count 190 X10*3/uL (160-400) 02/18/20 04:11 MPV 10.8 fL (9.4-12.3) 02/18/20 04:11 Immature Gran % (Auto) 0.5 % (0.0-0.4) H 02/17/20 09:09 Neut % (Auto) 71.3 % (45-73) 02/17/20 09:09 Lymph % (Auto) 19.9 % (20-40) L 02/17/20 09:09 [place] % (Auto) 7.7 % (2-11) 02/17/20 09:09 Eos % (Auto) 0.2 % (0-4) 02/17/20 09:09 Baso % (Auto) 0.4 % (0-2) 02/17/20 09:09 Lymph # (Auto) 1.7 X10*3/uL (1.2-4.9) 02/17/20 09:09 [place] # (Auto) 0.7 X10*3/uL (0.1-1.2) 02/17/20 09:09 Eos # (Auto) 0.0 X10*3/uL (0.0-0.4) 02/17/20 09:09 Baso # (Auto) 0.0 X10*3/uL (0.0-0.2) 02/17/20 09:09 Abs Immat Gran (auto) 0.04 X10*3/uL (0.00-0.03) H 02/17/20 09:09 Absolute Neuts (auto) 6.0 X10*3/uL (2.0-8.3) 02/17/20 09:09 Absolute Nucleated RBC 0.000 X10*3/uL (0.0-0.012) 02/18/20 04:11 Nucleated RBC % (auto) 0.0 /100WBC (0.0-0.2) 02/18/20 04:11 PT 12.2 SEC (10.8-13.0) 02/17/20 09:09 INR 1.0 (0.9-1.1) 02/17/20 09:09 APTT 35.5 SEC (24.1-38.0) 02/16/20 21:35 Hold Blue Top SEE NOTE 02/16/20 21:35 Sodium 140 mmol/L (135-145) 02/18/20 04:11 Potassium 3.3 mmol/l (3.3-5.1) 02/18/20 04:11 Chloride 107 mmol/L (96-108) 02/18/20 04:11 Carbon Dioxide 23 mmol/L (22-29) 02/18/20 04:11 Anion Gap 13 (-20) 02/18/20 04:11 BUN 9 mg/dL (9-16) D 02/18/20 04:11 Creatinine 0.70 mg/dL (0.5-1.4) 02/18/20 04:11 Estim Creat Clear Calc 82.9 02/18/20 04:11 Estimated GFR > 60 02/18/20 04:11 POC Glucose 86 mg/dL (60-115) 02/18/20 11:39 Random Glucose 75 mg/dL (60-115) 02/18/20 04:11 Estimat Average Glucose 146 mg/dL 02/17/20 09:09 Hemoglobin A1c % 6.7 % 02/17/20 09:09 Lactic Acid 0.8 mmol/L (0.5-2.0) 02/17/20 00:33 Calcium 8.0 mg/dL (8.4-10.2) L 02/18/20 04:11 Total Bilirubin 6.0 mg/dL (0.0-1.0) H 02/18/20 04:11 Direct Bilirubin 4.8 mg/dL (0.0-0.5) H 02/18/20 04:11 AST 123 U/L (5-31) H 02/18/20 04:11 ALT 126 U/L (0-31) H 02/18/20 04:11 Alkaline Phosphatase 236 U/L (39-117) H 02/18/20 04:11 Total Protein 6.2 g/dL (6.5-8.0) L 02/18/20 04:11 Albumin 3.2 g/dL (3.5-5.0) L 02/18/20 04:11 Lipase 7 U/L (8-78) L 02/16/20 21:35 Urine Color ORANGE 02/16/20 21:35 Urine Appearance CLEAR 02/16/20 21:35 Urine pH 6.5 (5.0-8.0) 02/16/20 21:35 Ur Specific St[place]al 1.015 (1.005-1.025) 02/16/20 21:35 Urine Protein 3+ MG/DL (NEG-TRACE) H 02/16/20 21:35 Urine Glucose (UA) 500 MG/DL (NEG) H 02/16/20 21:35 Urine Ketones 15 MG/DL (NEG) 02/16/20 21:35 Urine Blood NEG (NEG) 02/16/20 21:35 Urine Nitrite POS (NEG) H 02/16/20 21:35 Ur Leukocyte Esterase 2+ (NEG) H 02/16/20 21:35 Urine RBC 0-2 /HPF (0) 02/16/20 21:35 Urine WBC 0-2 /HPF (0-4) 02/16/20 21:35 Ur Squamous Epith Cells TRACE /LPF 02/16/20 21:35 Urine Bacteria NONE /LPF 02/16/20 21:35 Urine Test NEGATIVE (NEGATIVE) 02/16/20 21:35 Acetone, Qual Negative (Negative) 02/16/20 21:35 COVID-19 ([facility]) Negative (Negative) 02/17/20 02:54 COVID-19 Clin Com See Note 02/17/20 02:54 Hepatitis A IgM Ab Nonreactive (Nonreactive) 02/16/20 21:35 Hep Bs Antigen Negative (Negative) 02/16/20 21:35 Hep Bs Antibody NONREACTIVE (Nonreactive) 02/16/20 21:35 Hep B Core Total Ab Nonreactive (Nonreactive) 02/16/20 21:35 Hepatitis C Ab (EIA) Reactive (Nonreactive) H 02/16/20 21:35 Preliminary micro results at discharge 02/17/20 00:33 Blood Culture - Preliminary Blood - Venous No growth after 24 hours. 02/17/20 00:33 Blood Culture - Preliminary Blood - Venous No growth after 24 hours. Discharge Plan Discharge Patient Disposition: Xfer [facility] Referrals: Physician,None [Primary Care Provider] - Discharge Medications: New piperacillin-tazobactam 3.375 gram Recon Soln 3.375 g IV Q6H Qty: 1 RF: 0 promethazine 25 mg/mL Solution 6.25 mg IV ONCE PRN (Reason: Nausea And Vomiting) Qty: 1 RF: 0 Continued phenazopyridine 200 mg Tablet 200 mg PO TID PRN (Reason: Pain) RF: 0 ondansetron 4 mg Tablet,Disintegrating 4 mg translingual Q6H PRN (Reason: Nausea And Vomiting) RF: 0 Discharge Orders: Discharge Order (Routine); Ordered 02/18/20 Ordered By: Marlon Joseph Diet: advance to usual diet Activity on Discharge: As tolerated Visit Report Forms: Patient Portal Discharge page Care Plan Goals: Read below Health Concerns: Read below Plan of Treatment: To be transfer to [facility] for further evaluation and treatment.
--- NOTE | 2020-02-18 16:15 | PM.EVENT ---
Event Note Date of Service: 02/18/20 Event Note: Repeat ERCP still unsuccessful Patient continues to have rising bilirubin Still has epigastric pain Since there has been 2 unsuccessful attempts here for ERCP, I would recommend transferring the patient to a tertiary care center especially in view of her rising bilirubin and persistent pain.
[2020-02-18 16:38] LABS: Glucose, Whole Blood 136 mg/dL (60-115)
== END 2020-02-18 19:15 | disposition short-term general hospital (02) | DRG 446 ==
LOC: HO.ED 02-17 03:00 → HO.IMC 02-17 06:58
PROVIDERS: Internal Medicine Gastroenterology; Admitting Provider Hospitalist; Emergency Provider Student in an Organized Health Care Education/Training Program; Visit Provider Student in an Organized Health Care Education/Training Program
PROC: 0FJB8ZZ Inspection of Hepatobiliary Duct, Via Natural or Artificial Opening Endoscopic (ICD-10-PCS; CPT 43260; principal; 2020-02-17 12:30)
DX: K80.63 Calculus of gallbladder and bile duct with acute cholecystitis with obstruction (principal); F17.210 Nicotine dependence, cigarettes, uncomplicated; Z71.6 Tobacco abuse counseling; Z20.828 Contact with and (suspected) exposure to other viral communicable diseases; E11.65 Type 2 diabetes mellitus with hyperglycemia; B19.20 Unspecified viral hepatitis C without hepatic coma
CPT/HCPCS: 36415; 74177; 76705; 80048; 80053; 80076; 81001; 81025; 82009; 82947; 83036; 83605; 83690; 85025; 85027; 85610; 85730; 86704; 86706; 86709; 86803; 87040; 87086; 87340; 87635; 96361; 96365; 96376; 99282; 99285; C1769; J0330; J1100; J1170; J1610; J1885; J2250; J2405; J2543; J3010; Q9967

== ENCOUNTER → 2020-05-04 09:08 | Outpatient (BNVA) | payer OTHER, SELFPAY | PROVIDERS: PCP Nurse Practitioner Family; Visit Provider Physician Assistant ==

== ENCOUNTER 2020-06-09 07:46 | Day surgery (SDC) | payer OTHER, SELFPAY ==
[2020-06-09 07:57] VITALS: BMI 29.5
[2020-06-09 08:03] VITALS: BP 124/74; PULSE 77; RESP 18; TEMP 35.6; O2SAT 96
--- NOTE | 2020-06-09 08:15 | P.CONAN_ITS ---
[facility] Active Problems Active Problems: All Active Problems (Updated 05/04/20 @ 09:53 by Mere raymond PA-C) Encounter for screening colonoscopy (Acute) Gallbladder & bile duct stone, acute cholecystitis and obstruction (Acute) Positive hepatitis C antibody test (Acute) Elevated LFTs (Acute) Hyperglycemia (Acute) Choledocholithiasis with acute cholecystitis (Acute) UTI (urinary tract infection) (Acute) Past Medical History Medical History Hyperglycemia No known health problems Family History Family History (Updated 05/04/20 @ 09:32 by Mere Roa PA-C) Unknown No family history of colorectal cancer Surgical History Surgical History History of cholecystectomy History of tubal ligation Social History Social History (Updated 05/04/20 @ 09:11 by Julia Becker CMA) Household Members: Spouse Housing: House Alcohol intake: former Smoking Status: Current every day smoker Tobacco Type: Cigarette Cigarettes Per Day: 5 Years Smoked: 39 Second Hand Smoke Exposure: Yes Use of substances other than those prescribed or required for medical reasons: No Have you been hit, kicked, punched, or otherwise hurt by someone within the past year? If so, by whom?: No Advance Directives: No Advance Directives Information Provided: Yes service: No Current occupational status: unemployed Meds Allergies Allergy/AdvReac Type Severity Reaction Status Date / Time No Known Allergies Allergy Verified 05/04/20 09:08 Active Medications: Current Medications Generic Name Dose Route Start Last Admin Trade Name Freq PRN Reason Stop Dose Admin Lactated Ringer's 1,000 mls @ 50 mls/hr 06/09/20 07:15 Lr IV .Q20H UNIQUE Home Medications Medication Instructions Recorded Confirmed Last Taken Type phenazopyridine 200 mg PO TID PRN 02/17/20 06/02/20 02/16/20 17:30 History atorvastatin 10 mg tablet 10 mg PO DAILY 05/04/20 06/02/20 Unknown History metformin 500 mg tablet 1,000 mg PO DAILY 05/04/20 06/02/20 Unknown History metformin 500 mg tablet 500 mg PO DAILY@1700 05/04/20 06/02/20 Unknown History cholecalciferol (vitamin D3) 50 mcg PO DAILY 06/02/20 06/02/20 Unknown History Exam Exam Date and Time: June 09, 2020 0815 Height,Weight and Vital Signs: Height 5 ft 1 in Weight 70.76 kg Last Vital Signs Temp 96.1 F L 06/09/20 08:03 Pulse 77 06/09/20 08:03 Resp 18 06/09/20 08:03 BP 124/74 06/09/20 08:03 Pulse Ox 96 06/09/20 08:03 Airway Mallampati Class: II TM Dist: >3cm Neck ROM: Full Partial: Upper Adult Head Mouth w/Numbe Teeth: 1. Loose 2. Loose 3. Loose 4. Loose 5. Loose 6. Broken 7. Broken Loose/Missing/Broken Teeth: Yes (Poor dentition) Heart: RRR Lungs: NL Assessment and Plan Assessment Anesthesia Assessment: Anesthesia Plan Discussed and Chart Reviewed Final Anesthetic Review NPO: Yes ASA Class: III Final Preanesthetic Review: No Changes in Pt Med Stat, Meds/Allgs Chart Reviewed, Consent Obtained/Reviewed and Anes Risks/Benef Reviewed Patient Risk: Intermediate Procedure Risk: Low Anesthetic Plan Anesthetic Plan: MAC: Disposition: Standard PACU
[2020-06-09] MEDS: Lactated Ringers 1,000 ML 50 ML IV (08:17)
[2020-06-09 08:26] LABS: Glucose, Whole Blood 138 mg/dL (60-115)
--- NOTE | 2020-06-09 08:49 | P.HPSUR_ITS ---
Pre-Procedural Eval Section B Chief Complaint: Screening Relevant Family History (Specify if Yes): No Relevant Social History: Tobacco Use Present Medications: see Short Stay Collaborative assessment Medical History: Significant History (hyperglycemia) History of Previous Operations: Relevant previous surgery/procedure and date(s) (History of cholecystectomy History of tubal ligation) Allergies: Allergies Allergy/AdvReac Type Severity Reaction Status Date / Time No Known Allergies Allergy Verified 05/04/20 09:08 Review of Systems Sugical H&P ROS: Negative: Constitution, Cardiovascular, Respiratory, Neurological, Psychiatric, Hem-Onc, Allergic/Immunologic, Gastrointestinal, Gen itourinary, Musculoskeletal, Integumentary, Endocrine and Eyes/Ears/Nose/Throat Exam Surgical H&P Exam: Normal: HEENT, Normal: Heart, Normal: Lungs, Normal: Extremities, Normal: Abdomen, Normal: Skin and Normal: Neurological Plan Diagnosis/Plan: Unchanged I have reviewed the history and physical and performed a pertinent physical examination on my patient. No changes have occurred unless specified.
--- NOTE | 2020-06-09 08:53 | P.OP_ITS ---
Operative Note Operative Note Date of Service: 06/09/20 Narrative: Operative Information Procedure Description: Colonoscopy COLONOSCOPY Instrument: Olympus variable stiffness pediatric scope 190L Colonoscopy Monitoring: Vital signs and clinical assessment, continuous EKG monitoring, Pulse oximetry, Carbon Dioxide monitoring and blood pressure monitoring were done throughout the procedure. Colon withdrawal time was 14 minutes. Procedure: The patient was placed in the left lateral decubitis position and pre-procedure medications were administered. After a digital rectal examination of the ano-rectum, the video colonoscope was inserted into the rectum and advanced through the colon to the cecum/TI. The colonoscope was slowly withdrawn in a retrograde panoramic fashion and the colon mucosa was carefully examined including a retroflexed view of the rectum. Findings and interventions are described below. Procedure Difficulty:easy Findings: Terminal Ileum-normal Cecum:normal Ascending Colon: normal Transverse Colon -normal Descending Colon:normal Sigmoid Colon: normal Rectum: Retroflexion with small internal hemorrhoids, grade I, x2 sessile polyps 5-8 mm removed with forceps Anorectum - normal Colon preparation: [place] Bowel Preparation Scale Right colon; 1 Transverse colon: 2 Left colon; 1 (0 = Unprepared colon segment with mucosa not seen due to solid stool that cannot be cleared. 1 = Portion of mucosa of the colon segment seen, but other areas of the colon segment not well seen due to staining, residual stool and/or opaque liquid. 2 = Minor amount of residual staining, small fragments of stool and/or opaque liquid, but mucosa of colon segment seen well. 3 = Entire mucosa of colon segment seen well with no residual staining, small fragments of stool or opaque liquid) Impression and Post Procedure Diagnosis: polyps internal hemorrhoids Plan: High fiber diet leaflet Avoid straining at stool, epsom salts and sitz bath, anusol supps or cream Repeat Colonoscopy in 6-12 months or earlier if clinically indicated-review prep instructions again Above findings were reviewed with the patient and relevant handouts were provided if indicated.
--- NOTE | 2020-06-09 08:53 | PM.OP ---
Brief Operative Note Date of Service: 06/09/20 Pre-op diagnosis: colon screening Post-op diagnosis: same Procedure: see op note Surgeon: Eleuterio Fierro MD Anesthesia: MAC Estimated blood loss (mL): 0 Condition: stable Disposition: PACU
[2020-06-09 09:31] VITALS: BP 88/48; PULSE 59; RESP 14; TEMP 36.8; O2SAT 96
[2020-06-09 09:46] VITALS: BP 110/60; PULSE 61; RESP 16; O2SAT 96
[2020-06-09 10:03] VITALS: TEMP 36.8
== END 2020-06-09 10:31 | disposition home or self-care (01) ==
PROVIDERS: PCP Nurse Practitioner Family; Visit Provider Internal Medicine Gastroenterology
PROC: 0DJD8ZZ Inspection of Lower Intestinal Tract, Via Natural or Artificial Opening Endoscopic (ICD-10-PCS; CPT 45378; principal; 2020-06-09 08:30)
DX: Z12.11 Encounter for screening for malignant neoplasm of colon (principal); D12.8 Benign neoplasm of rectum; K64.0 First degree hemorrhoids; R73.9 Hyperglycemia, unspecified; Z79.84 Long term (current) use of oral hypoglycemic drugs; Z79.899 Other long term (current) drug therapy; Z90.49 Acquired absence of other specified parts of digestive tract; F17.210 Nicotine dependence, cigarettes, uncomplicated
CPT/HCPCS: 45380; 82947; 88305

== ENCOUNTER 2020-06-23 11:03 | Outpatient (REF) | payer OTHER, SELFPAY ==
[2020-06-23 13:14] LABS: MANUAL DIFF FLAG NO
[2020-06-23 13:29] LABS: Basophils Percent Auto 0.3 % (0-2); Eosinophils Absolute Auto 0.2 X10*3/uL (0.0-0.4); Eosinophils Percent Auto 2.5 % (0-4); Hematocrit 37.7 % (37-47); Hemoglobin 12.2 g/dl (12.0-16.0); Imm Gran Abs Auto 0.03 X10*3/uL (0.00-0.03); Imm Gran Pct Auto 0.3 % (0.0-0.4); Lymphocytes Absolute Auto 3.1 X10*3/uL (1.2-4.9); Lymphocytes Percent Auto 33.6 % (20-40); Mean Corpuscular HGB Conc 32.4 g/dl (31.0-35.0); Mean Corpuscular Hemoglobin 23.2 pg (27.0-33.0); Mean Corpuscular Volume 71.7 fL (80-98); Mean Platelet Volume 10.5 fL (9.4-12.3); Monocytes Absolute Auto 0.8 X10*3/uL (0.1-1.2); Monocytes Percent Auto 8.6 % (2-11); Neutrophils Percent Auto 54.7 % (45-73); Platelet Count 212 X10*3/uL (160-400); Red Blood Count 5.26 X10*6/uL (4.20-5.50); Red Cell Distribution Width 20.2 % (11.0-16.0); White Blood Count 9.1 X10*3/uL (4.8-10.8)
[2020-06-23 13:49] LABS: Alanine Aminotransferase 69 U/L (0-31); Albumin Level 4.1 g/dL (3.5-5.0); Alkaline Phosphatase 100 U/L (39-117); Anion Gap 12 (12-20); Aspartate Amino Transferase 55 U/L (5-31); Bilirubin Total 0.5 mg/dL (0.0-1.0); Blood Urea Nitrogen 10 mg/dL (9-16); Calcium 9.7 mg/dL (8.4-10.2); Carbon Dioxide 28 mmol/L (22-29); Chloride 103 mmol/L (96-108); Estimated Glomerular Filt Rate > 60; Glucose Random 108 mg/dL (60-115); Potassium 4.1 mmol/L (3.3-5.1); Sodium 139 mmol/L (135-145); Total Protein 7.9 g/dL (6.5-8.0)
[2020-06-24 21:22] LABS: HCV RNA PCR Qn 153000 IU/mL (NOT DETECTED); HCV RNA PCR Qn 5.18 Log IU/mL (NOT DETECTED)
[2020-07-01 13:21] LABS: HCV Genotype LiPA 3
== END 2020-06-23 11:04 | disposition home or self-care (01) ==
LOC: HO.LAB 11:03
PROVIDERS: PCP Nurse Practitioner Family; Visit Provider Physician Assistant
DX: R74.01 Elevation of levels of liver transaminase levels (principal); R10.11 Right upper quadrant pain; B19.20 Unspecified viral hepatitis C without hepatic coma
CPT/HCPCS: 36415; 80053; 85025; 87522; 87902

== ENCOUNTER → 2020-07-06 10:10 | Outpatient (BNVA) | payer OTHER, SELFPAY | PROVIDERS: PCP Nurse Practitioner Family; Visit Provider Physician Assistant ==

== ENCOUNTER 2020-07-13 10:33 | Outpatient (REF) | payer OTHER, SELFPAY ==
[2020-07-14 17:37] LABS: HCV RNA PCR Qn 140000 IU/mL (NOT DETECTED); HCV RNA PCR Qn 5.15 Log IU/mL (NOT DETECTED)
[2020-07-22 16:16] LABS: HCV Genotype LiPA 3
[2020-07-27 18:22] LABS: FIB-ALT 50 U/L (6-29); FIB-Alpha-2-Macroglobulin 462 mg/dL (106-279); FIB-Apolipoprotein A1 141 mg/dL (101-198); FIB-GGT 33 U/L (3-70); FIB-Haptoglobin 118 mg/dL (43-212); FIB-Total Bilirubin 0.4 mg/dL (0.2-1.2); Liver Fibrosis Score 0.54; Liver Fibrosis Stage F2; Nec Inflam Act Grade A1-A2; Nec Inflam Act Score 0.37
== END 2020-07-13 10:34 | disposition home or self-care (01) ==
LOC: HO.LAB 10:33
PROVIDERS: PCP Nurse Practitioner Family; Visit Provider Physician Assistant
DX: B19.20 Unspecified viral hepatitis C without hepatic coma (principal)
CPT/HCPCS: 36415; 81596; 87902

== ENCOUNTER 2020-07-16 09:24 | Outpatient (REF) | payer OTHER, SELFPAY ==
--- NOTE | ~2020-07-16 | MM_ITS ---
EXAMINATION: MM SCREENING DIGITAL BREAST TOMOSYNTHESIS, BILATERAL CLINICAL INFORMATION: Screening. Asymptomatic. Prior [id number] mammography from [place] performed over 10 years ago and no longer available. The lifetime risk of breast cancer based on the Tyrer-Cuzick Model is 7%. COMPARISON: None (current study represents new baseline exam). TECHNIQUE: Digital breast tomosynthesis is performed in both the craniocaudal and mediolateral oblique views along with computer-aided detection (CAD). Synthesized 2D images are generated from the tomosynthesis. Additional bilateral CC views are provided. FINDINGS: There are scattered areas of fibroglandular density (ACR BI-RADS breast composition Category b). There are no significant masses, abnormal calcifications, or other abnormalities. Skin contours are smooth. MM/MM tomosynthesis screening BI IMPRESSION: No mammographic evidence of malignancy. ASSESSMENT: BI-RADS 1: Negative RECOMMENDATION: Routine annual mammography screening. This patient's information was entered into a reminder system with a target due date for their next mammogram.
== END 2020-07-16 09:25 | disposition home or self-care (01) ==
LOC: HO.MAMMO 09:24
PROVIDERS: Visit Provider Nurse Practitioner Family
DX: Z12.31 Encounter for screening mammogram for malignant neoplasm of breast (principal)
CPT/HCPCS: 77063; 77067

== ENCOUNTER 2020-09-16 10:56 | Outpatient (REF) | payer OTHER, SELFPAY ==
[2020-09-16 11:57] LABS: MANUAL DIFF FLAG NO
[2020-09-16 12:01] LABS: Basophils Percent Auto 0.5 % (0-2); Eosinophils Absolute Auto 0.1 X10*3/uL (0.0-0.4); Eosinophils Percent Auto 1.7 % (0-4); Hemoglobin 11.6 g/dl (12.0-16.0); Imm Gran Abs Auto 0.03 X10*3/uL (0.00-0.03); Imm Gran Pct Auto 0.4 % (0.0-0.4); Lymphocytes Absolute Auto 3.1 X10*3/uL (1.2-4.9); Lymphocytes Percent Auto 36.6 % (20-40); Mean Corpuscular HGB Conc 32.2 g/dl (31.0-35.0); Mean Corpuscular Hemoglobin 23.6 pg (27.0-33.0); Mean Corpuscular Volume 73.2 fL (80-98); Mean Platelet Volume 9.9 fL (9.4-12.3); Monocytes Absolute Auto 0.6 X10*3/uL (0.1-1.2); Monocytes Percent Auto 7.6 % (2-11); Neutrophils Absolute Auto 4.5 X10*3/uL (2.0-8.3); Neutrophils Percent Auto 53.2 % (45-73); Platelet Count 237 X10*3/uL (160-400); Red Blood Count 4.92 X10*6/uL (4.20-5.50); Red Cell Distribution Width 17.5 % (11.0-16.0); White Blood Count 8.4 X10*3/uL (4.8-10.8)
[2020-09-16 12:31] LABS: Alanine Aminotransferase 13 U/L (0-31); Albumin Level 4.1 g/dL (3.5-5.0); Alkaline Phosphatase 74 U/L (39-117); Anion Gap 9 (12-20); Aspartate Amino Transferase 17 U/L (5-31); Bilirubin Total 0.5 mg/dL (0.0-1.0); Blood Urea Nitrogen 7 mg/dL (9-16); Calcium 9.6 mg/dL (8.4-10.2); Carbon Dioxide 26 mmol/L (22-29); Chloride 107 mmol/L (96-108); Estimated Glomerular Filt Rate > 60; Glucose Random 104 mg/dL (60-115); Potassium 4.3 mmol/L (3.3-5.1); Sodium 138 mmol/L (135-145); Total Protein 7.7 g/dL (6.5-8.0)
[2020-09-18 16:31] LABS: HCV Log PCR <1.18 NOT DETECTED Log IU/mL (NOT DETECTED); HepC Viral Load <15 NOT DETECTED IU/mL (NOT DETECTED)
== END 2020-09-16 10:57 | disposition home or self-care (01) ==
LOC: HO.LAB 10:56
PROVIDERS: PCP Nurse Practitioner Family; Visit Provider Physician Assistant
DX: B19.20 Unspecified viral hepatitis C without hepatic coma (principal)
CPT/HCPCS: 36415; 80053; 85025; 87522

== ENCOUNTER → 2020-09-22 11:42 | Outpatient (BNVA) | payer OTHER, SELFPAY | PROVIDERS: PCP Nurse Practitioner Family; Visit Provider Physician Assistant ==

== ENCOUNTER 2020-10-20 12:22 | Outpatient (REF) | payer OTHER, SELFPAY ==
[2020-10-20 12:50] LABS: MANUAL DIFF FLAG NO
[2020-10-20 13:04] LABS: Basophils Absolute Auto 0.1 X10*3/uL (0.0-0.2); Basophils Percent Auto 0.4 % (0-2); Eosinophils Absolute Auto 0.2 X10*3/uL (0.0-0.4); Eosinophils Percent Auto 1.8 % (0-4); Hematocrit 35.7 % (37-47); Hemoglobin 11.5 g/dl (12.0-16.0); Imm Gran Abs Auto 0.06 X10*3/uL (0.00-0.03); Imm Gran Pct Auto 0.5 % (0.0-0.4); Lymphocytes Absolute Auto 4.5 X10*3/uL (1.2-4.9); Lymphocytes Percent Auto 38.2 % (20-40); Mean Corpuscular HGB Conc 32.2 g/dl (31.0-35.0); Mean Corpuscular Hemoglobin 23.2 pg (27.0-33.0); Mean Corpuscular Volume 72.1 fL (80-98); Mean Platelet Volume 10.2 fL (9.4-12.3); Neutrophils Absolute Auto 6.1 X10*3/uL (2.0-8.3); Neutrophils Percent Auto 51.1 % (45-73); Platelet Count 274 X10*3/uL (160-400); Red Blood Count 4.95 X10*6/uL (4.20-5.50); Red Cell Distribution Width 17.4 % (11.0-16.0); White Blood Count 11.9 X10*3/uL (4.8-10.8)
[2020-10-20 13:34] LABS: Alanine Aminotransferase 11 U/L (0-31); Albumin Level 4.2 g/dL (3.5-5.0); Alkaline Phosphatase 79 U/L (39-117); Anion Gap 13 (12-20); Aspartate Amino Transferase 15 U/L (5-31); Bilirubin Total 0.4 mg/dL (0.0-1.0); Blood Urea Nitrogen 9 mg/dL (9-16); Calcium 9.4 mg/dL (8.4-10.2); Carbon Dioxide 24 mmol/L (22-29); Chloride 104 mmol/L (96-108); Estimated Glomerular Filt Rate > 60; Glucose Random 81 mg/dL (60-115); Potassium 4.1 mmol/L (3.3-5.1); Sodium 137 mmol/L (135-145); Total Protein 7.7 g/dL (6.5-8.0)
[2020-10-23 20:56] LABS: HCV Log PCR <1.18 NOT DETECTED Log IU/mL (NOT DETECTED); HepC Viral Load <15 NOT DETECTED IU/mL (NOT DETECTED)
== END 2020-10-20 12:23 | disposition home or self-care (01) ==
LOC: HO.LAB 12:22
PROVIDERS: PCP Nurse Practitioner Family; Visit Provider Physician Assistant
DX: B19.20 Unspecified viral hepatitis C without hepatic coma (principal)
CPT/HCPCS: 36415; 80053; 85025; 87522

== ENCOUNTER → 2020-10-27 08:02 | Outpatient (BNVA) | payer OTHER, SELFPAY | PROVIDERS: PCP Nurse Practitioner Family; Visit Provider Physician Assistant ==

== ENCOUNTER → 2020-11-08 10:51 | Outpatient (BNVA) | payer OTHER, SELFPAY | PROVIDERS: PCP Nurse Practitioner Family | DX: R32 Unspecified urinary incontinence (principal) | CPT/HCPCS: 51798; 99202 ==

== ENCOUNTER 2020-11-11 11:31 | Outpatient (REF) | payer OTHER, SELFPAY ==
[2020-11-11 12:35] LABS: MANUAL DIFF FLAG NO
[2020-11-11 12:38] LABS: Basophils Percent Auto 0.4 % (0-2); Eosinophils Absolute Auto 0.2 X10*3/uL (0.0-0.4); Eosinophils Percent Auto 2.3 % (0-4); Hematocrit 34.6 % (37-47); Imm Gran Abs Auto 0.03 X10*3/uL (0.00-0.03); Imm Gran Pct Auto 0.3 % (0.0-0.4); Lymphocytes Absolute Auto 3.7 X10*3/uL (1.2-4.9); Lymphocytes Percent Auto 40.4 % (20-40); Mean Corpuscular HGB Conc 31.8 g/dl (31.0-35.0); Mean Corpuscular Hemoglobin 22.6 pg (27.0-33.0); Mean Platelet Volume 10.1 fL (9.4-12.3); Monocytes Absolute Auto 0.6 X10*3/uL (0.1-1.2); Monocytes Percent Auto 6.6 % (2-11); Neutrophils Absolute Auto 4.6 X10*3/uL (2.0-8.3); Platelet Count 252 X10*3/uL (160-400); Red Blood Count 4.87 X10*6/uL (4.20-5.50); Red Cell Distribution Width 17.8 % (11.0-16.0); White Blood Count 9.1 X10*3/uL (4.8-10.8)
[2020-11-11 13:09] LABS: Alanine Aminotransferase 12 U/L (0-31); Alkaline Phosphatase 73 U/L (39-117); Anion Gap 13 (12-20); Aspartate Amino Transferase 15 U/L (5-31); Bilirubin Total 0.2 mg/dL (0.0-1.0); Blood Urea Nitrogen 7 mg/dL (9-16); Calcium 9.4 mg/dL (8.4-10.2); Carbon Dioxide 24 mmol/L (22-29); Chloride 104 mmol/L (96-108); Estimated Glomerular Filt Rate > 60; Glucose Random 126 mg/dL (60-115); Potassium 4.2 mmol/L (3.3-5.1); Sodium 137 mmol/L (135-145); Total Protein 7.5 g/dL (6.5-8.0)
[2020-11-12 18:32] LABS: HCV Log PCR <1.18 NOT DETECTED Log IU/mL (NOT DETECTED); HepC Viral Load <15 NOT DETECTED IU/mL (NOT DETECTED)
== END 2020-11-11 11:32 | disposition home or self-care (01) ==
LOC: HO.LAB 11:31
PROVIDERS: PCP Nurse Practitioner Family; Visit Provider Physician Assistant
DX: B19.20 Unspecified viral hepatitis C without hepatic coma (principal)
CPT/HCPCS: 36415; 80053; 85025; 87522

== ENCOUNTER → 2020-12-28 15:19 | Outpatient (BNVA) | payer OTHER, SELFPAY | PROVIDERS: PCP Nurse Practitioner Family ==

== ENCOUNTER 2021-01-04 14:36 | Emergency (ER) | payer OTHER, SELFPAY ==
--- NOTE | ~2021-01-04 | XR_ITS ---
EXAMINATION: XR CHEST CLINICAL INFORMATION: Fever COMPARISON: CT abdomen earlier today. TECHNIQUE: Frontal view of the chest was obtained. FINDINGS: Lungs are hypoinflated. There is mild elevation of the right hemidiaphragm similar to that seen on the CT scan. There is mild cardiac enlargement. No evidence of CHF. Some mild bibasilar atelectasis is seen. No lung masses, consolidations or effusions are seen. XR/XR chest 1V IMPRESSION: No acute intrathoracic disease.
--- NOTE | ~2021-01-04 | CT_ITS ---
EXAMINATION: CT ABDOMEN AND PELVIS WITH CONTRAST CLINICAL INFORMATION: 55-year-old female with right upper quadrant and epigastric pain. Elevated LFTs. COMPARISON: CT abdomen pelvis 02/17/2020 TECHNIQUE: Multidetector volumetric images were obtained from the superior aspect of the liver through the pubic symphysis following administration 85 mL of Omnipaque 350 intravenous contrast. Sagittal and coronal reformatted images were obtained on the technologist's workstation. This CT examination was performed using dose optimization techniques as appropriate, variously including the following: *Automated exposure control *Adjustment of mA and/or kV according to patient size (this includes techniques or standardized protocols for targeted exams where dose is matched to indication/reason for exam; i.e. extremities or head) *Use of iterative reconstruction technique DLP: 690 mGy-cm FINDINGS: Visualized lung bases demonstrate mild dependent atelectasis. The liver demonstrates normal size, contour and attenuation. The gallbladder is surgically absent. There is minimal intrahepatic prominence. The common bile duct appears normal in caliber. 1 cm well-defined fluid collection within the inferior cholecystectomy bed (image , series 3). The pancreas, spleen and adrenal glands are unremarkable. Symmetrically enhancing kidneys. No hydronephrosis bilaterally. Several subcentimeter renal hypodensities are too small to characterize. Tiny hiatal hernia. Normal caliber loops of small and large bowel. Normal appendix. Normal caliber abdominal aorta which demonstrates moderate atherosclerotic disease. No retroperitoneal lymphadenopathy. The bladder is normal in appearance. Enlarged lobulated uterus containing several calcifications suggesting fibroid disease. There appears to be a dominant fundal fibroid which measures approximately 8 cm in size. There is no gross free pelvic fluid. No inguinal lymphadenopathy. Moderate diffuse degenerative changes of the spine CT/CT abdomen pelvis w con IMPRESSION: 1. 1 cm well-defined fluid collection within the inferior cholecystectomy. This likely represents postsurgical changes/residual seroma. An abscess is suspected less likely. 2. Leiomyomatous uterus.
[2021-01-04 14:47] VITALS: BP 140/92; BP 179/86; PULSE 79; PULSE 83; RESP 18; TEMP 37; O2SAT 98; O2SAT 99; BMI 32.1
[2021-01-04 15:08] LABS: Basophils Percent Auto 0.1 % (0-2); Hematocrit 36.3 % (37.0-47.0); Hemoglobin 11.7 g/dl (12.0-16.0); Imm Gran Abs Auto 0.09 X10*3/uL (0.00-0.03); Imm Gran Pct Auto 0.5 % (0.0-0.4); Lymphocytes Absolute Auto 0.6 X10*3/uL (1.2-4.9); Lymphocytes Percent Auto 3.4 % (20-40); MANUAL DIFF FLAG SCAN; Mean Corpuscular HGB Conc 32.2 g/dl (31.0-35.0); Mean Corpuscular Hemoglobin 22.6 pg (27.0-33.0); Mean Corpuscular Volume 70.2 fL (80.0-98.0); Monocytes Absolute Auto 0.3 X10*3/uL (0.1-1.2); Neutrophils Absolute Auto 15.4 x10*3/uL (2.0-8.3); Platelet Count 261 X10*3/uL (160-400); Red Blood Count 5.17 X10*6/uL (4.20-5.50); Red Cell Distribution Width 20.6 % (11.0-16.0); SCAN SMEAR FLAG 1; White Blood Count 16.4 X10*3/uL (4.8-10.8)
[2021-01-04 15:21] LABS: Alanine Aminotransferase 290 U/L (0-31); Albumin Level 4.5 g/dL (3.5-5.0); Alkaline Phosphatase 206 U/L (39-117); Anion Gap 16 (12-20); Aspartate Amino Transferase 374 U/L (5-31); Bilirubin Total 2.4 mg/dL (0.0-1.0); Blood Urea Nitrogen 11 mg/dL (9-16); Calcium 9.1 mg/dL (8.4-10.2); Carbon Dioxide 21 mmol/L (22-29); Chloride 103 mmol/L (96-108); Creatinine Clr Calc Pharmacy 72.8; Estimated Glomerular Filt Rate > 60; Glucose Random 251 mg/dL (60-115); Potassium 3.8 mmol/L (3.3-5.1); Sodium 136 mmol/L (135-145); Total Protein 8.5 g/dL (6.5-8.0)
[2021-01-04 15:22] LABS: Troponin-I High Sensitivity < 3.5 ng/L (<3.5-17.0)
[2021-01-04 15:34] LABS: SLIDE REVIEW VERIFIED
[2021-01-04 19:09] VITALS: BP 179/86; PULSE 79; RESP 18; TEMP 38.6; O2SAT 99
--- NOTE | 2021-01-04 19:17 | ED_ITS ---
HPI - Abdominal Pain General Chief Complaint: Abdominal Pain Stated Complaint: ABD PAIN Time Seen by Provider: 01/04/21 18:50 Source: patient Mode of arrival: ambulatory Limitations: no limitations History of Present Illness HPI narrative: Patient comes to emergency room complaining of abdominal pain that started 16 hours ago. Patient states when she went to sleep she was feeling well, approximately a 03:00 patient woke up complaining of right upper quadrant pain and epigastric pain. Patient states the pain has been constant, nonradiating. Patient reports 4 episodes of vomiting, no diarrhea, no fever or chills. Of note, patient has history of choledocholithiasis with acute cholecystitis. According to patient's notes, and ERCP was attempted on February 16 and 2019, it was unsuccessful, patient had to be transferred to [facility]. Patient reports that in base states she had a cholecystectomy. Related Data Home Medications Medication Instructions Recorded Confirmed atorvastatin 10 mg tablet 10 mg PO DAILY 05/04/20 01/04/21 cholecalciferol (vitamin D3) 50 50 mcg PO DAILY 06/02/20 01/04/21 mcg (2,000 unit) capsule alcohol swabs (Alcohol Prep Pads) 1 pad TOPICAL QID 11/08/20 01/04/21 blood-glucose meter (FreeStyle #1 ea 11/08/20 Lite Meter) lancets 28 gauge (FreeStyle #100 ea 11/08/20 Lancets) metformin 1,000 mg tablet 1,000 mg PO BID 11/08/20 01/04/21 blood sugar diagnostic (FreeStyle 01/04/21 01/04/21 Lite Strips) fexofenadine 180 mg tablet 1 tab PO DAILY 01/04/21 01/04/21 mirabegron 25 mg tablet,extended 1 tab PO DAILY 01/04/21 01/04/21 release 24 hr (Myrbetriq) mometasone 0.1 % topical ointment 1 appl TOPICAL BEDTIME 01/04/21 01/04/21 oxybutynin chloride 10 mg 1 tab PO DAILY 01/04/21 01/04/21 tablet,extended release 24 hr Allergies Allergy/AdvReac Type Severity Reaction Status Date / Time No Known Allergies Allergy Verified 11/08/20 11:09 Review of Systems Review of Systems Constitutional : No Weight loss, No Fever, No Chills, No Night Sweats, No Fati celina, No Malaise ENT/Mouth : No Hearing loss, No Ear Pain, No Nasal Congestion, No Sinus Pain, No Hoarseness, No sore throat, No Rhinorrhea, No Swallowing Difficulty Eyes: No Eye Pain, No Swelling, No Redness, No Foreign Body, No Discharge, No Vision Changes Cardiovascular : No Chest Pain, No SOB, No Dyspnea on Exertion, No Orthopnea, No Edema, No Palpitations Respiratory : No Cough, No Sputum, No Wheezing, No Smoke Exposure, No Dyspnea Gastrointestinal : Complaining of nausea and vomiting x4, No Diarrhea, No Constipation, complaining of constant nonradiating abdominal pain in the right upper quadrant and epigastric area, No Hematochezia, No Melena Genitourinary : no irregular bleeding, No Dysuria, No Urinary Frequency, No Hematuria, No Urinary Incontinence, No Urgency, No Flank Pain, No Urinary Flow Changes, No Hesitancy Musculoskeletal : No joint pain, No Myalgias, No Joint Swelling Skin : No Skin Lesions, No rash Neuro : No Weakness, No Numbness, No Paresthesias, No Loss of Consciousness, No Dizziness, No Headache Psych : No Anxiety/Panic, No Depression, No SI/HI/AH/VH, No Social Issues, Heme/Lymph: No Bruising, No Bleeding,No Lymphadenopathy Endocrine : No Polyuria, No Polydipsia, No Temperature Intolerance Physical Exam Vital Signs: Vital Signs: Last Vital Signs Temp 101.5 F H 01/04/21 19:09 Pulse 79 01/04/21 19:09 Resp 15 01/04/21 20:02 BP 179/86 H 01/04/21 19:09 Pulse Ox 99 01/04/21 19:09 Body Mass Index 32.1 Const: Other: Appearance: Alert. Oriented X3. Ill-appearing Eyes: Pupils equal, round and reactive to light. ENT: Pharynx normal. Neck: Normal inspection. Neck supple. No lymph nodes noted. No crepitus CVS: Normal heart rate and rhythm. Pulses normal. Normal S1 and S2 Respiratory: No respiratory distress. Breath sounds normal. No Wheezing. No rales Abdomen: Soft, nondistended, tender to palpation over the epigastric area, pain to palpation over right upper quadrant with a negative Escobar sign, no rebound, no guarding Skin: Skin warm and dry. Slightly icteric, Normal skin turgor. Extremities: No lower extremity edema. No Lacerations. No Rash Neuro: Oriented X 3. No motor deficit. No sensory deficit. Moving all exte rmities. No slurred speech. Course Course Course Narrative: On physical exam, patient feels warm to touch, more than normal temperature. I asked patient's nurse to obtain a rectal temperature, patient does have a fever of 101.5. Considering the patient is ill-appearing, has elevated LFTs, fever, I started patient on ceftriaxone for prophylactic treatment. Imaging, UA, acid and blood cultures pending. I discussed the patient with Dr. Hutchinson. It is unlikely that the patient has an abscess after almost a year of surgery. Recommendations: GI consult. I discussed the patient with Dr. Fierro, who recommends to transfer the patient to [facility] since she got surgery (cholecystectomy) and ERCP there. Patient will likely need an MRCP I discussed the patient with Dr. Oconnell from Gastroenterology at [facility]. Patient is being accepted to the internal medicine service by Dr. Sanderson. Patient received 1 dose IV ceftriaxone and metronidazole. At this time the diagnosis is unclear, choledocholithiasis versus cholangitis. Patient is stable. I discussed the plan with the patient, patient agreeable. Patient is aware that she will have to stay in the ED until tomorrow morning because there were no rooms available at [facility]. Physician observation was tarted at 22:10 MDM - Abdominal Pain Lab Data Result diagrams: 01/04/21 14:55 01/04/21 14:55 Labs: Lab Results 01/04/21 01/04/21 01/04/21 Range/Units 14:55 14:55 14:55 WBC 16.4 H (4.8-10.8) X10*3/uL RBC 5.17 (4.20-5.50) X10*6/uL Hgb 11.7 L (12.0-16.0) g/dl Hct 36.3 L (37.0-47.0) % MCV 70.2 L (80.0-98.0) fL MCH 22.6 L (27.0-33.0) pg MCHC 32.2 (31.0-35.0) g/dl RDW 20.6 H (11.0-16.0) % Plt Count 261 (160-400) X10*3/uL MPV 10.0 (9.4-12.3) fL Immature Gran % (Auto) 0.5 H (0.0-0.4) % Neut % (Auto) 94.0 H (45-73) % Lymph % (Auto) 3.4 L (20-40) % [place]roquois % (Auto) 2.0 (2-11) % Eos % (Auto) 0.0 (0-4) % Baso % (Auto) 0.1 (0-2) % Lymph # (Auto) 0.6 L (1.2-4.9) X10*3/uL [place] # (Auto) 0.3 (0.1-1.2) X10*3/uL Eos # (Auto) 0.0 (0.0-0.4) X10*3/uL Baso # (Auto) 0.0 (0.0-0.2) X10*3/uL Abs Immat Gran (auto) 0.09 H (0.00-0.03) X10*3/uL Absolute Neuts (auto) 15.4 H (2.0-8.3) x10*3/uL Absolute Nucleated RBC 0.000 (0.0-0.012) X10*3/uL Nucleated RBC % (auto) 0.0 (0.0-0.2) /100WBC Smear Tech's Comments VERIFIED PT (9.9-13.0) SEC INR (0.9-1.1) Sodium 136 (135-145) mmol/L Potassium 3.8 (3.3-5.1) mmol/L Chloride 103 (96-108) mmol/L Carbon Dioxide 21 L (22-29) mmol/L Anion Gap 16 (12-20) BUN 11 D (9-16) mg/dL Creatinine 0.84 (0.5-1.4) mg/dL Estim Creat Clear Calc 72.8 Estimated GFR > 60 Random Glucose 251 H (60-115) mg/dL Lactic Acid (0.5-2.0) mmol/L Calcium 9.1 (8.4-10.2) mg/dL Total Bilirubin 2.4 H (0.0-1.0) mg/dL AST 374 H (5-31) U/L ALT 290 H (0-31) U/L Alkaline Phosphatase 206 H D (39-117) U/L Troponin I High Sens < 3.5 (<3.5-17.0) ng/L Total Protein 8.5 H (6.5-8.0) g/dL Albumin 4.5 (3.5-5.0) g/dL Lipase 9 (8-78) U/L 01/04/21 01/04/21 Range/Units 19:28 19:28 WBC (4.8-10.8) X10*3/uL RBC (4.20-5.50) X10*6/uL Hgb (12.0-16.0) g/dl Hct (37.0-47.0) % MCV (80.0-98.0) fL MCH (27.0-33.0) pg MCHC (31.0-35.0) g/dl RDW (11.0-16.0) % Plt Count (160-400) X10*3/uL MPV (9.4-12.3) fL Immature Gran % (Auto) (0.0-0.4) % Neut % (Auto) (45-73) % Lymph % (Auto) (20-40) % Iroquois % (Auto) (2-11) % Eos % (Auto) (0-4) % Baso % (Auto) (0-2) % Lymph # (Auto) (1.2-4.9) X10*3/uL [place] # (Auto) (0.1-1.2) X10*3/uL Eos # (Auto) (0.0-0.4) X10*3/uL Baso # (Auto) (0.0-0.2) X10*3/uL Abs Immat Gran (auto) (0.00-0.03) X10*3/uL Absolute Neuts (auto) (2.0-8.3) x10*3/uL Absolute Nucleated RBC (0.0-0.012) X10*3/uL Nucleated RBC % (auto) (0.0-0.2) /100WBC Smear Tech's Comments PT 12.9 (9.9-13.0) SEC INR 1.1 (0.9-1.1) Sodium (135-145) mmol/L Potassium (3.3-5.1) mmol/L Chloride (96-108) mmol/L Carbon Dioxide (22-29) mmol/L Anion Gap (12-20) BUN (9-16) mg/dL Creatinine (0.5-1.4) mg/dL Estim Creat Clear Calc Estimated GFR Random Glucose (60-115) mg/dL Lactic Acid 3.1 H* (0.5-2.0) mmol/L Calcium (8.4-10.2) mg/dL Total Bilirubin (0.0-1.0) mg/dL AST (5-31) U/L ALT (0-31) U/L Alkaline Phosphatase (39-117) U/L Troponin I High Sens (<3.5-17.0) ng/L Total Protein (6.5-8.0) g/dL Albumin (3.5-5.0) g/dL Lipase (8-78) U/L Imaging Data CT scan - abdomen: Radiologist's impression: FINDINGS: Visualized lung bases demonstrate mild dependent atelectasis. The liver demonstrates normal size, contour and attenuation. The gallbladder is surgically absent. There is minimal intrahepatic prominence. The common bile duct appears normal in caliber. 1 cm well-defined fluid collection within the inferior cholecystectomy bed (image 29/85, series 3). The pancreas, spleen and adrenal glands are unremarkable. Symmetrically enhancing kidneys. No hydronephrosis bilaterally. Several subcentimeter renal hypodensities are too small to characterize. Tiny hiatal hernia. Normal caliber loops of small and large bowel. Normal appendix. Normal caliber abdominal aorta which demonstrates moderate atherosclerotic disease. No retroperitoneal lymphadenopathy. The bladder is normal in appearance. Enlarged lobulated uterus containing several calcifications suggesting fibroid disease. There appears to be a dominant fundal fibroid which measures approximately 8 cm in size. There is no gross free pelvic fluid. No inguinal lymphadenopathy. Moderate diffuse degenerative changes of the spine CT/CT abdomen pelvis w con IMPRESSION: 1.? 1 cm well-defined fluid collection within the inferior cholecystectomy. This likely represents postsurgical changes/residual seroma. An abscess is suspected less likely. 2. ? Leiomyomatous uterus. Chest x-ray: Radiologist's impression: Lungs are hypoinflated. There is mild elevation of the right hemidiaphragm similar to that seen on the CT scan. There is mild cardiac enlargement. No evidence of CHF. Some mild bibasilar atelectasis is seen. No lung masses, consolidations or effusions are seen. XR/XR chest 1V IMPRESSION: No acute intrathoracic disease. Discharge Plan Discharge Clinical Impression: Choledocholithiasis Patient Disposition: [facility] Transfer Details: [facility] Prescriptions: No Action cholecalciferol (vitamin D3) 50 mcg (2,000 unit) capsule 50 mcg PO DAILY RF: 0 oxybutynin chloride 10 mg tablet extended release 24hr 1 tab PO DAILY RF: 0 fexofenadine 180 mg tablet 1 tab PO DAILY RF: 0 (DME) FreeStyle Lite Strips Strip 1 strip MISCELLANEOUS BID RF: 0 mometasone 0.1 % ointment 1 appl topical BEDTIME RF: 0 Myrbetriq 25 mg tablet extended release 24 hr 1 tab PO DAILY RF: 0 atorvastatin 10 mg tablet 10 mg PO DAILY RF: 0 PMFSH Past Medical History Medical History Hyperglycemia No known health problems Urinary incontinence Surgical History History of cholecystectomy History of tubal ligation Hx of colonoscopy Family History Family History Unknown No family history of colorectal cancer Social History Social History Household Members: Spouse Housing: House Do you presently have visiting nurse or other home services: No Alcohol intake: unknown Patient Tobacco Use Status: Tobacco use Unknown Cigarettes Per Day: 5 Years Smoked: 39 Second Hand Smoke Exposure: Yes Use of substances other than those prescribed or required for medical reasons: No Advance Directives: No Advance Directives Information Provided: No service: No Current occupational status: unemployed
[2021-01-04] MEDS: iohexoL 350 MG/ML 100 ML INFUS..BTL IV (19:51)
[2021-01-04 19:56] LABS: INTERNATIONAL NORM RATIO 1.1 (0.9-1.1); Prothrombin Time 12.9 SEC (9.9-13.0)
[2021-01-04 19:59] LABS: Lactic Acid 3.1 mmol/L (0.5-2.0)
[2021-01-04 20:02] VITALS: RESP 15
[2021-01-04] MEDS: Morphine Sulfate 4 MG/ML CARTRIDGE IVPUSH (20:02)
[2021-01-04] MEDS: cefTRIAXone sodium 1 GM in 0.9 % Sodium Chloride 50 ML IV (20:02)
[2021-01-04] MEDS: ondansetron HCL 4 MG/2 ML VIAL IVPUSH (20:02)
[2021-01-04] MEDS: 0.9 % Sodium Chloride 1,000 ML 999 ML IVCONT ×3 (20:03→20:07)
[2021-01-04 20:54] LABS: Lipase 9 U/L (8-78)
[2021-01-04 21:42] LABS: Reflex Lactate? Lactic Acid Added
[2021-01-04 22:00] VITALS: BP 168/48; PULSE 79; RESP 15; TEMP 37.7; O2SAT 99
[2021-01-04] MEDS: metroNIDAZOLE/NS 500 MG/100 ML PIGGYBACK 100 MG IV (22:14)
[2021-01-04 22:32] LABS: ~Lactic Acid-LAB USE ONLY 1.8 mmol/L (0.5-2.0)
[2021-01-04 22:45] LABS: COVID-19 Test Negative (Negative)
[2021-01-05 01:03] LABS: Glucose, Whole Blood 144 mg/dL (60-115)
[2021-01-05 06:21] VITALS: BP 125/58; PULSE 79; RESP 16; O2SAT 95
[2021-01-05 06:30] LABS: Appearance Urine CLEAR; Color Urine DK YELLOW; Glucose Urine UA NEG (NEG); Leukocyte Esterase Urine NEG (NEG); Nitrite Urine POS (NEG); Specific Gravity - Urine 1.015 (1.005-1.025); UACC Culture Trigger YES; Urine Blood TRACE (NEG); Urine Ketones NEG (NEG); Urine Protein NEG (NEG-TRACE)
[2021-01-05 06:38] LABS: Bacteria Urine 3+ /LPF; Squamous Epithelial Cell Urine 1+ /LPF
[2021-01-05 07:09] VITALS: BP 121/69; PULSE 79; RESP 18; TEMP 37.6; O2SAT 99
[2021-01-05] MEDS: Morphine Sulfate 4 MG/ML CARTRIDGE IVPUSH (07:36)
--- NOTE | 2021-01-05 08:00 | PC.NURSE ---
pt continues to be npo.
--- NOTE | 2021-01-05 08:27 | PC.NURSE ---
@08:[address] [facility] PT TX LINE TO CHECK ON ROOM ASSIGNMENT STATUS Dena ANSWERS AND SAYS THERE ARE NO BEDS AVAILABLE YET AND THEY ARE WAITING FOR DISCHARGES TO BE ABLE TO ASSIGN A BED AND THAT THEY WILL CALL US WITH ROOM ASSIGNMENT WHEN BED AVAILABLE
[2021-01-05 08:50] VITALS: BP 101/51; PULSE 75; RESP 18; TEMP 37.4; O2SAT 98
[2021-01-05 10:03] VITALS: BP 113/70; PULSE 77; RESP 16; O2SAT 96
[2021-01-05] MEDS: cefTRIAXone sodium 1 GM in 0.9 % Sodium Chloride 50 ML IV (10:07)
[2021-01-05 11:24] VITALS: BP 111/51; PULSE 74; RESP 18; TEMP 37.1; O2SAT 97
[2021-01-05] MEDS: metroNIDAZOLE/NS 500 MG/100 ML PIGGYBACK 100 MG IV (11:28)
[2021-01-05 14:28] VITALS: BP 98/53; PULSE 70; RESP 15; TEMP 37.4; O2SAT 95
== END 2021-01-05 17:00 | disposition short-term general hospital (02) ==
PROVIDERS: Emergency Provider Emergency Medicine
DX: K80.50 Calculus of bile duct without cholangitis or cholecystitis without obstruction (principal); R10.11 Right upper quadrant pain; R06.02 Shortness of breath; F17.210 Nicotine dependence, cigarettes, uncomplicated; Z20.822 Contact with and (suspected) exposure to COVID-19; Z71.6 Tobacco abuse counseling; Z79.899 Other long term (current) drug therapy
CPT/HCPCS: 36415; 71045; 74177; 80053; 81001; 82947; 83605; 83690; 84484; 85025; 85610; 87040; 87077; 87086; 87186; 87205; 87635; 96361; 96365; 96367; 96375; 96376; 99285; J0696; J2270; J2405; Q9967

== ENCOUNTER 2021-02-08 08:06 | Outpatient (REF) | payer OTHER, SELFPAY ==
[2021-02-08 08:25] LABS: MANUAL DIFF FLAG NO
[2021-02-08 08:35] LABS: Basophils Percent Auto 0.3 % (0-2); Eosinophils Absolute Auto 0.2 X10*3/uL (0.0-0.4); Eosinophils Percent Auto 1.7 % (0-4); Hematocrit 36.8 % (37.0-47.0); Hemoglobin 11.8 g/dl (12.0-16.0); Imm Gran Abs Auto 0.03 X10*3/uL (0.00-0.03); Imm Gran Pct Auto 0.3 % (0.0-0.4); Lymphocytes Absolute Auto 2.9 X10*3/uL (1.2-4.9); Lymphocytes Percent Auto 32.5 % (20-40); Mean Corpuscular HGB Conc 32.1 g/dl (31.0-35.0); Mean Corpuscular Volume 71.6 fL (80.0-98.0); Mean Platelet Volume 9.5 fL (9.4-12.3); Monocytes Absolute Auto 0.6 X10*3/uL (0.1-1.2); Monocytes Percent Auto 6.9 % (2-11); Neutrophils Absolute Auto 5.2 x10*3/uL (2.0-8.3); Neutrophils Percent Auto 58.3 % (45-73); Platelet Count 258 X10*3/uL (160-400); Red Blood Count 5.14 X10*6/uL (4.20-5.50); White Blood Count 8.9 X10*3/uL (4.8-10.8)
[2021-02-08 08:53] LABS: Alanine Aminotransferase 19 U/L (0-31); Albumin Level 4.2 g/dL (3.5-5.0); Alkaline Phosphatase 81 U/L (39-117); Anion Gap 12 (12-20); Aspartate Amino Transferase 23 U/L (5-31); Bilirubin Total 0.4 mg/dL (0.0-1.0); Blood Urea Nitrogen 9 mg/dL (9-16); Calcium 9.8 mg/dL (8.4-10.2); Carbon Dioxide 26 mmol/L (22-29); Chloride 106 mmol/L (96-108); Estimated Glomerular Filt Rate > 60; Glucose Random 105 mg/dL (60-115); Potassium 4.2 mmol/L (3.3-5.1); Sodium 140 mmol/L (135-145); Total Protein 8.2 g/dL (6.5-8.0)
[2021-02-15 10:01] LABS: HCV Log PCR <1.18 NOT DETECTED Log IU/mL (NOT DETECTED); HepC Viral Load <15 NOT DETECTED IU/mL (NOT DETECTED)
== END 2021-02-08 08:07 | disposition home or self-care (01) ==
LOC: HO.LAB 08:06
PROVIDERS: PCP Nurse Practitioner Family; Visit Provider Physician Assistant
DX: B19.20 Unspecified viral hepatitis C without hepatic coma (principal)
CPT/HCPCS: 36415; 80053; 85025; 87522

== ENCOUNTER 2021-03-10 11:51 | Outpatient (REF) | payer OTHER, SELFPAY ==
[2021-03-10 12:37] LABS: MANUAL DIFF FLAG NO
[2021-03-10 13:13] LABS: Basophils Absolute Auto 0.1 X10*3/uL (0.0-0.2); Basophils Percent Auto 0.5 % (0-2); Eosinophils Absolute Auto 0.2 X10*3/uL (0.0-0.4); Eosinophils Percent Auto 2.4 % (0-4); Hematocrit 39.5 % (37.0-47.0); Hemoglobin 12.9 g/dl (12.0-16.0); Imm Gran Abs Auto 0.03 X10*3/uL (0.00-0.03); Imm Gran Pct Auto 0.3 % (0.0-0.4); Lymphocytes Absolute Auto 3.9 X10*3/uL (1.2-4.9); Lymphocytes Percent Auto 42.3 % (20-40); Mean Corpuscular HGB Conc 32.7 g/dl (31.0-35.0); Mean Corpuscular Hemoglobin 24.1 pg (27.0-33.0); Mean Corpuscular Volume 73.7 fL (80.0-98.0); Mean Platelet Volume 9.9 fL (9.4-12.3); Monocytes Absolute Auto 0.6 X10*3/uL (0.1-1.2); Monocytes Percent Auto 6.8 % (2-11); Neutrophils Absolute Auto 4.4 x10*3/uL (2.0-8.3); Neutrophils Percent Auto 47.7 % (45-73); Platelet Count 233 X10*3/uL (160-400); Red Blood Count 5.36 X10*6/uL (4.20-5.50); Red Cell Distribution Width 21.2 % (11.0-16.0); White Blood Count 9.2 X10*3/uL (4.8-10.8)
[2021-03-10 13:48] LABS: Iron 105 mcg/dL (30-160); Percent Iron Saturation 22 % (15-50); Total Iron Binding Capacity 471 mcg/dL (228-428); Unsaturated Iron Binding 366 ug/dL
[2021-03-10 14:08] LABS: Ferritin 13 ng/mL (10-250)
== END 2021-03-10 11:52 | disposition home or self-care (01) ==
LOC: HO.LAB 11:51
PROVIDERS: PCP Nurse Practitioner Family; Referring Provider Nurse Practitioner Family; Visit Provider Physician Assistant
DX: D36.9 Benign neoplasm, unspecified site (principal); D64.9 Anemia, unspecified; B19.20 Unspecified viral hepatitis C without hepatic coma; Z78.9 Other specified health status
CPT/HCPCS: 36415; 82728; 83540; 85025; 99212

== ENCOUNTER → 2021-03-28 08:30 | Outpatient (BNVA) | payer OTHER, SELFPAY | PROVIDERS: PCP Nurse Practitioner Family ==

== ENCOUNTER 2021-05-16 11:22 | Outpatient (REF) | payer OTHER, SELFPAY ==
[2021-05-16 12:21] LABS: MANUAL DIFF FLAG NO
[2021-05-16 12:46] LABS: Basophils Percent Auto 0.4 % (0-2); Eosinophils Absolute Auto 0.2 X10*3/uL (0.0-0.4); Eosinophils Percent Auto 1.9 % (0-4); Hematocrit 42.1 % (37.0-47.0); Hemoglobin 14.2 g/dl (12.0-16.0); Imm Gran Abs Auto 0.05 X10*3/uL (0.00-0.03); Imm Gran Pct Auto 0.5 % (0.0-0.4); Lymphocytes Absolute Auto 3.7 X10*3/uL (1.2-4.9); Lymphocytes Percent Auto 39.3 % (20-40); Mean Corpuscular HGB Conc 33.7 g/dl (31.0-35.0); Mean Corpuscular Hemoglobin 26.8 pg (27.0-33.0); Mean Corpuscular Volume 79.6 fL (80.0-98.0); Mean Platelet Volume 9.6 fL (9.4-12.3); Monocytes Absolute Auto 0.7 X10*3/uL (0.1-1.2); Monocytes Percent Auto 7.7 % (2-11); Neutrophils Absolute Auto 4.7 x10*3/uL (2.0-8.3); Neutrophils Percent Auto 50.2 % (45-73); Platelet Count 215 X10*3/uL (160-400); Red Blood Count 5.29 X10*6/uL (4.20-5.50); Red Cell Distribution Width 19.7 % (11.0-16.0); White Blood Count 9.4 X10*3/uL (4.8-10.8)
[2021-05-16 13:12] LABS: Alanine Aminotransferase 16 U/L (0-31); Albumin Level 4.3 g/dL (3.5-5.0); Alkaline Phosphatase 79 U/L (39-117); Anion Gap 12 (12-20); Aspartate Amino Transferase 16 U/L (5-31); Bilirubin Total 0.4 mg/dL (0.0-1.0); Blood Urea Nitrogen 9 mg/dL (9-16); Carbon Dioxide 26 mmol/L (22-29); Chloride 103 mmol/L (96-108); Estimated Glomerular Filt Rate > 60; Glucose Random 98 mg/dL (60-115); Potassium 4.4 mmol/L (3.3-5.1); Sodium 137 mmol/L (135-145)
[2021-05-18 12:11] LABS: HCV Log PCR <1.18 NOT DETECTED Log IU/mL (NOT DETECTED); HepC Viral Load <15 NOT DETECTED IU/mL (NOT DETECTED)
== END 2021-05-16 11:23 | disposition home or self-care (01) ==
LOC: HO.LAB 11:22
PROVIDERS: PCP Nurse Practitioner Family; Referring Provider Nurse Practitioner Family; Visit Provider Physician Assistant
DX: B19.20 Unspecified viral hepatitis C without hepatic coma (principal); D36.9 Benign neoplasm, unspecified site; Z79.899 Other long term (current) drug therapy; Z12.11 Encounter for screening for malignant neoplasm of colon
CPT/HCPCS: 36415; 80053; 85025; 87522; 99212

== ENCOUNTER 2021-07-20 12:16 | Day surgery (SDC) | payer OTHER, SELFPAY ==
[2021-07-14 13:37] VITALS: BMI 31.6
--- NOTE | 2021-07-19 10:39 | P.CONAN_ITS ---
Documented by User: Devika Terry NP 07/19/21 10:40 HPI - Anesthesia Eval Consult details Narrative: 55yo F for Colonoscopy PMFSH Active Problems Active Problems: All Active Problems (Updated 07/14/21 @ 13:32 by Gayatri Hendrickson RN) Choledocholithiasis with acute cholecystitis (Acute) UTI (urinary tract infection) (Acute) Elevated LFTs (Acute) Positive hepatitis C antibody test (Acute) Gallbladder & bile duct stone, acute cholecystitis and obstruction (Acute) Encounter for screening colonoscopy (Acute) Tubular adenoma (Acute) HCV (hepatitis C virus) (Acute) Anemia (Acute) Poor historian (Acute) Urinary incontinence (Acute) Hyperglycemia (Acute) Past Medical History Medical History (Updated 07/14/21 @ 13:32 by Gayatri Hendrickson RN) Diabetes Elevated cholesterol Hepatitis C Hyperglycemia Urinary incontinence Family History Family History Unknown No family history of colorectal cancer Surgical History Surgical History (Updated 07/14/21 @ 13:30 by Gayatri Hendrickson RN) History of cholecystectomy History of tubal ligation Hx of colonoscopy Social History Social History (Updated 05/16/21 @ 11:41 by Mere Roa PA-C) Household Members: Spouse Housing: House Do you presently have visiting nurse or other home services: No Alcohol intake: unknown Patient Tobacco Use Status: Current everyday Tobacco user Tobacco use type: Cigarette Cigarettes Per Day: 4 Years Smoked: 30 Second Hand Smoke Exposure: Yes Use of substances other than those prescribed or required for medical reasons: No Are you DNR?: No Advance Directives: No Advance Directives Information Provided: Yes service: No Current occupational status: employed Current occupation: [employer] Allergies Allergy/AdvReac Type Severity Reaction Status Date / Time No Known Allergies Allergy Verified 05/16/21 11:25 Home Medications Medication Instructions Recorded Confirmed Last Taken Type atorvastatin 10 mg tablet 10 mg PO DAILY 05/04/20 07/14/21 Unknown History cholecalciferol (vitamin D3) 50 50 mcg PO DAILY 06/02/20 07/14/21 Unknown History mcg (2,000 unit) capsule alcohol swabs (Alcohol Prep Pads) 1 pad TOPICAL QID 11/08/20 03/10/21 Unknown History blood-glucose meter (FreeStyle #1 ea 11/08/20 03/10/21 Unknown History Lite Meter) lancets 28 gauge (FreeStyle #100 ea 11/08/20 03/10/21 Unknown History Lancets) metformin 1,000 mg tablet 1,000 mg PO BID 11/08/20 07/14/21 Unknown History blood sugar diagnostic (FreeStyle 01/04/21 03/10/21 Unknown History Lite Strips) fexofenadine 180 mg tablet 1 tab PO DAILY 01/04/21 07/14/21 Unknown History mometasone 0.1 % topical ointment 1 appl TOPICAL BEDTIME 01/04/21 07/14/21 Unknown History oxybutynin chloride 10 mg 1 tab PO DAILY 01/04/21 07/14/21 Unknown History tablet,extended release 24 hr ferrous sulfate 325 mg (65 mg 65 mg PO DAILY 03/28/21 07/14/21 Unknown History iron) tablet Exam Exam Date and Time: July 19, 2021 1039 Height,Weight and Vital Signs: Height 5 ft Weight 73.482 kg Pertinent Lab Results Pertinent Lab Results: Laboratory Tests 05/16/21 05/16/21 12:19 12:19 WBC 9.4 Hgb 14.2 Hct 42.1 Plt Count 215 Sodium 137 Potassium 4.4 Chloride 103 Carbon Dioxide 26 BUN 9 Creatinine 0.77 Assessment and Plan Assessment Anesthesia Assessment: Chart Reviewed Documented by User: Eugenie Mcgill MD 07/20/21 13:18 ON LICENSE OF [facility] Past Medical History Medical History (Updated 07/14/21 @ 13:32 by Gayatri Hendrickson RN) Diabetes Elevated cholesterol Hepatitis C Hyperglycemia Urinary incontinence Family History Family History Unknown No family history of colorectal cancer Family history of problems with anesthesia: No Surgical History Surgical History (Updated 07/14/21 @ 13:30 by Gayatri Hendrickson RN) History of cholecystectomy History of tubal ligation Hx of colonoscopy History of Problems with Anesthesia: No Social History Social History (Updated 05/16/21 @ 11:41 by Mere Roa PA-C) Household Members: Spouse Housing: House Do you presently have visiting nurse or other home services: No Alcohol intake: unknown Patient Tobacco Use Status: Current everyday Tobacco user Tobacco use type: Cigarette Cigarettes Per Day: 4 Years Smoked: 30 Second Hand Smoke Exposure: Yes Use of substances other than those prescribed or required for medical reasons: No Are you DNR?: No Advance Directives: No Advance Directives Information Provided: Yes service: No Current occupational status: employed Current occupation: [employer] Allergies Allergy/AdvReac Type Severity Reaction Status Date / Time No Known Allergies Allergy Verified 05/16/21 11:25 Home Medications Medication Instructions Recorded Confirmed Last Taken Type atorvastatin 10 mg tablet 10 mg PO DAILY 05/04/20 07/14/21 Unknown History cholecalciferol (vitamin D3) 50 50 mcg PO DAILY 06/02/20 07/14/21 Unknown History mcg (2,000 unit) capsule alcohol swabs (Alcohol Prep Pads) 1 pad TOPICAL QID 11/08/20 03/10/21 Unknown History blood-glucose meter (FreeStyle #1 ea 11/08/20 03/10/21 Unknown History Lite Meter) lancets 28 gauge (FreeStyle #100 ea 11/08/20 03/10/21 Unknown History Lancets) metformin 1,000 mg tablet 1,000 mg PO BID 11/08/20 07/14/21 Unknown History blood sugar diagnostic (FreeStyle 01/04/21 03/10/21 Unknown History Lite Strips) fexofenadine 180 mg tablet 1 tab PO DAILY 01/04/21 07/14/21 Unknown History mometasone 0.1 % topical ointment 1 appl TOPICAL BEDTIME 01/04/21 07/14/21 Unknown History oxybutynin chloride 10 mg 1 tab PO DAILY 01/04/21 07/14/21 Unknown History tablet,extended release 24 hr ferrous sulfate 325 mg (65 mg 65 mg PO DAILY 03/28/21 07/14/21 Unknown History iron) tablet Exam Airway Mallampati Class: II (Partial unable to remove secondary to loose tooth next to it, ) TM Dist: >3cm Neck ROM: Full Heart: rrr Lungs: cta Assessment and Plan Assessment Anesthesia Assessment: Anesthesia Plan Discussed and Chart Reviewed Final Anesthetic Review Family History of Problems with Anesthesia: No History of Problems with Anesthesia: No NPO: Yes ASA Class: III Final Preanesthetic Review: No Changes in Pt Med Stat, Meds/Allgs Chart Reviewed and Consent Obtained/Reviewed Patient Risk: Intermediate Procedure Risk: Intermediate Anesthetic Plan Anesthetic Plan: MAC: Disposition: Standard PACU
[2021-07-20 12:56] VITALS: BP 122/75; PULSE 64; RESP 18; TEMP 36.2; O2SAT 98; BMI 30.4
[2021-07-20] MEDS: Lactated Ringers 1,000 ML 100 ML IVCONT (13:03)
--- NOTE | 2021-07-20 13:11 | MHC.SHP ---
Pre-Procedural Eval Section A Date of Service: 07/20/21 Section B Chief Complaint: Benign neoplasm, Relevant Family History (Specify if Yes): No Relevant Social History: Tobacco Use Present Medications: see Short Stay Collaborative assessment Medical History: Significant History (Diabetes Elevated cholesterol Hepatitis C Hyperglycemia Urinary incontinence) History of Previous Operations: Relevant previous surgery/procedure and date(s) (History of cholecystectomy History of tubal ligation Hx of colonoscopy) Allergies: Allergies Allergy/AdvReac Type Severity Reaction Status Date / Time No Known Allergies Allergy Verified 05/16/21 11:25 Review of Systems Sugical H&P ROS: Negative: Constitution, Cardiovascular, Respiratory, Neurological, Psychiatric, Hem-Onc, Allergic/Immunologic, Gastrointestinal, Genitourinary, Musculoskeletal, Integumentary, Endocrine and Eyes/Ears/Nose/Throat Exam Surgical H&P Exam: Normal: HEENT, Normal: Heart, Normal: Lungs, Normal: Extremities, Normal: Abdomen, Normal: Skin and Normal: Neurological Plan Diagnosis/Plan: Unchanged I have reviewed the history and physical and performed a pertinent physical examination on my patient. No changes have occurred unless specified.
[2021-07-20 13:33] LABS: Glucose, Whole Blood 93 mg/dL (60-115)
--- NOTE | 2021-07-20 13:41 | P.BOP_ITS ---
Brief Operative Note Date of Service: 07/20/21 Pre-op diagnosis: colon screening, hx of polyps Post-op diagnosis: same Procedure: see op note Surgeon: Eleuterio Fierro MD Anesthesia: MAC Was an Computer Support Technician used for this Procedure?: No Estimated blood loss (mL): 0 Condition: stable Disposition: PACU
--- NOTE | 2021-07-20 13:42 | W.PM.OPN ---
Operative Note Operative Note Date of Service: 07/20/21 Narrative: Operative Information Procedure Description: Colonoscopy Indication: colon screening, hx of polyps Anesthesia: MAC COLONOSCOPY Instrument: Olympus variable stiffness pediatric scope 190L Colonoscopy Monitoring: Vital signs and clinical assessment, continuous EKG monitoring, Pulse oximetry, Carbon Dioxide monitoring and blood pressure monitoring were done throughout the procedure. Colon withdrawal time was 11 minutes. Procedure: The patient was placed in the left lateral decubitis position and pre-procedure medications were administered. After a digital rectal examination of the ano-rectum, the video colonoscope was inserted into the rectum and advanced through the colon to the cecum/TI. The colonoscope was slowly withdrawn in a retrograde panoramic fashion and the colon mucosa was carefully examined including a retroflexed view of the rectum. Findings and interventions are described below. Procedure Difficulty: easy Findings: Terminal Ileum-normal Cecum:normal Ascending Colon: normal Transverse Colon -normal Descending Colon:normal Sigmoid Colon: normal Rectum: Retroflexion with small internal hemorrhoids, grade I, 5-6 mm sessile polyp removed with cold forceps Anorectum - normal Colon preparation: [place] Bowel Preparation Scale Right colon; 2 Transverse colon: 3 Left colon; 3 (0 = Unprepared colon segment with mucosa not seen due to solid stool that cannot be cleared. 1 = Portion of mucosa of the colon segment seen, but other areas of the colon segment not well seen due to staining, residual stool and/or opaque liquid. 2 = Minor amount of residual staining, small fragments of stool and/or opaque liquid, but mucosa of colon segment seen well. 3 = Entire mucosa of colon segment seen well with no residual staining, small fragments of stool or opaque liquid) Impression and Post Procedure Diagnosis: polyp internal hemorrhoids Plan: High fiber diet leaflet Avoid straining at stool, epsom salts and sitz bath, anusol supps or cream Repeat Colonoscopy in 5 years due to hx of tubualr adenomas or earlier if clinically indicated Above findings were reviewed with the patient and relevant handouts were provided if indicated.
[2021-07-20 13:45] VITALS: BP 88/45; PULSE 62; RESP 16; TEMP 36.1; O2SAT 100
[2021-07-20 14:00] VITALS: BP 108/66; PULSE 53; RESP 16; O2SAT 95
[2021-07-20 14:15] VITALS: BP 104/65; PULSE 57; RESP 16; TEMP 36.1; O2SAT 100
== END 2021-07-20 15:00 | disposition home or self-care (01) ==
PROVIDERS: PCP Nurse Practitioner Family; Visit Provider Internal Medicine Gastroenterology
PROC: 0DJD8ZZ Inspection of Lower Intestinal Tract, Via Natural or Artificial Opening Endoscopic (ICD-10-PCS; CPT 45378; principal; 2021-07-20 12:30)
DX: Z12.11 Encounter for screening for malignant neoplasm of colon (principal); Z86.010 Personal history of colon polyps; K62.1 Rectal polyp; K64.0 First degree hemorrhoids; B19.20 Unspecified viral hepatitis C without hepatic coma; E78.00 Pure hypercholesterolemia, unspecified; E11.9 Type 2 diabetes mellitus without complications; Z79.84 Long term (current) use of oral hypoglycemic drugs; Z79.899 Other long term (current) drug therapy; F17.210 Nicotine dependence, cigarettes, uncomplicated; Z90.49 Acquired absence of other specified parts of digestive tract
CPT/HCPCS: 45380; 82947; 88305

== ENCOUNTER 2021-10-18 12:22 | Outpatient (REF) | payer OTHER, SELFPAY ==
--- NOTE | ~2021-10-18 | XR_ITS ---
EXAMINATION: XR FOOT, LEFT CLINICAL INFORMATION: Pain COMPARISON: None TECHNIQUE: AP, lateral, and oblique views of the left foot. FINDINGS: Bone alignment is normal. No fracture or dislocation is seen. Joint spaces are normal. There are calcaneal spurs. Soft tissues are otherwise normal. XR/XR foot LT min 3V IMPRESSION: Calcaneal spurs.
== END 2021-10-18 12:23 | disposition home or self-care (01) ==
LOC: HO.XRAY 12:22
PROVIDERS: PCP Nurse Practitioner Family; Visit Provider Nurse Practitioner Family
DX: M79.672 Pain in left foot (principal)
CPT/HCPCS: 73630

== ENCOUNTER 2022-03-30 10:29 | Outpatient (REF) | payer OTHER, SELFPAY ==
--- NOTE | ~2022-03-30 | XR_ITS ---
EXAMINATION: XR FOOT, RIGHT CLINICAL INFORMATION: Chronic foot pain COMPARISON: None TECHNIQUE: AP, lateral, and oblique views of the right foot. FINDINGS: Degenerative changes of the first MTP and fifth MTP joints with joint space narrowing and osteophytosis. Calcaneal enthesopathy. No acute fracture or dislocation. XR/XR foot RT min 3V IMPRESSION: Degenerative changes of the first and fifth MTP joints.
== END 2022-03-30 10:30 | disposition home or self-care (01) ==
LOC: HO.XRAY 10:29
PROVIDERS: PCP Registered Nurse; Visit Provider Registered Nurse
DX: M79.671 Pain in right foot (principal)
CPT/HCPCS: 73630

== ENCOUNTER 2022-09-12 08:00 | Outpatient (REF) | payer OTHER, SELFPAY ==
--- NOTE | ~2022-09-12 | MM_ITS ---
EXAMINATION: MM SCREENING DIGITAL BREAST TOMOSYNTHESIS, BILATERAL CLINICAL INFORMATION: Screening. Asymptomatic. The lifetime risk of breast cancer based on the Tyrer-Cuzick Model is 6%. COMPARISON: Mammography: This study is compared with prior exams dating back to 2020. TECHNIQUE: Digital breast tomosynthesis is performed in both the craniocaudal and mediolateral oblique views along with computer-aided detection (CAD). Synthesized 2D images are generated from the tomosynthesis. FINDINGS: There are scattered areas of fibroglandular density (ACR BI-RADS breast composition Category b). There are no significant masses, abnormal calcifications, or other abnormalities. MM/MM tomosynthesis screening BI IMPRESSION: No mammographic evidence of malignancy. ASSESSMENT: BI-RADS BI-RADS 1 - Negative RECOMMENDATION: Routine annual mammography screening. 1 year F/U This examination should not preclude the clinical evaluation of a suspicious palpable abnormality. This patient's information was entered into a reminder system with a target due date for their next mammogram.
== END 2022-09-12 08:01 | disposition home or self-care (01) ==
LOC: HO.MAMMO 08:00
PROVIDERS: PCP Registered Nurse; Visit Provider Registered Nurse
DX: Z12.31 Encounter for screening mammogram for malignant neoplasm of breast (principal)
CPT/HCPCS: 77063; 77067

== ENCOUNTER → 2022-09-12 08:30 | Outpatient (BNV) | payer OTHER, SELFPAY | PROVIDERS: PCP Registered Nurse; Visit Provider Radiology Diagnostic Radiology | DX: Z12.31 Encounter for screening mammogram for malignant neoplasm of breast (principal) | CPT/HCPCS: 77063; 77067 ==

== ENCOUNTER 2022-09-26 09:54 | Outpatient (AMB) | payer OTHER, SELFPAY ==
--- NOTE | 2022-09-26 09:59 | A.OFFVIS_ITS ---
Intake Intake Visit Reasons: 1 year follow up OAB Intake Note: Patient presents for follow up OAB/incontinence Patient stated: Leak urine happens when coughing, laughing or sneezing, pt also wears pads. 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 Accompanied by: Self / Same As Patient Allergies No Known Allergies Allergy (Verified 09/26/22 22:24) Medication List - Last Reconciled 09/26/22 by LONG Tran alcohol swabs (Alcohol Prep Pads) 1 pad topical QID amoxicillin 500 mg PO Q8H atorvastatin 20 mg PO DAILY blood sugar diagnostic (FreeStyle Lite Strips) blood-glucose meter (FreeStyle Lite Meter kit) As directed cholecalciferol (vitamin D3) 50 mcg PO DAILY estradiol 0.01%(0.1mg/gram) vaginal hydrocortisone 2.5% (Proctozone-HC) 1 appl [place] BID PRN ibuprofen 600 mg PO Q8H PRN lancets (FreeStyle Lancets) As directed metformin ER mg PO mirabegron ER (Myrbetriq) 50 mg (2 x 25 mg) PO DAILY 30 days triamcinolone acetonide 0.5% topical DAILY PRN HPI HPI Comments History of Present Illness Details Eva is a very pleasant 57 year old female patient of Dr. Cooper. She has a past medical history of diabetes, hypercholesteremia, hep C, and urinary incontinence. She presents to the office today for follow-up of her urinary issues. In discussion with the patient today she reports to be doing and feeling well. She reports compliance with Myrbetriq 25 mg daily. She reports feeling this medication to not be as affective as previously however does endorse it to somewhat be working. She otherwise denies hematuria, dysuria, foul smelling urine, changes to urinary stream, flank pain, fever, and or chills. She reports urinary frequency, urgency, and episodes of incontinence if not near a bathroom. In office urinalysis results reviewed with the patient today. PVR 50 mL. Discussed obtaining retroperitoneal ultrasound for further assessment evaluation. She otherwise offers no issues or concerns at this time. [facility] Medical History Diabetes Elevated cholesterol Hepatitis C Hyperglycemia Urinary incontinence Surgical History History of cholecystectomy History of tubal ligation Hx of colonoscopy Family History Unknown No family history of colorectal cancer Social History Household Members: Spouse Housing: House Do you presently have visiting nurse or other home services: No Alcohol intake: unknown Patient Tobacco Use Status: Current everyday Tobacco user Tobacco use type: Cigarette Cigarettes Per Day: 4 Years Smoked: 30 Second Hand Smoke Exposure: Yes service: No Current occupational status: employed Current occupation: [employer] Review of Systems Const Reports as per HPI Eyes Reports no additional complaints ENT Reports no additional complaints Card Reports as per HPI Resp Reports no additional complaints GI Reports as per HPI Reports as per HPI Musc Reports no additional complaints Neuro Reports no additional complaints Psych Reports no additional complaints Endo Reports as per HPI Physical Exam Const General: cooperative, healthy appearing, comfortable, no acute distress, well developed, alert and awake Orientation/consciousness: patient oriented x3 Limitations: no limitations HEENT Head: Yes normal to inspection, Yes normocephalic and Yes atraumatic Ears: hearing grossly normal bilaterally Eyes General: appearance normal, both eyes and all related structures Neck Neck: Yes normal visual inspection and Yes trachea midline Chest Chest palpation & inspection: normal inspection of the chest Resp Effort & Inspection: normal respiratory effort and able to speak in complete sentences Cardio Rate: regular rate GI Inspection: Yes normal to inspection General: Yes no CVA tenderness Back/Spine/Pelvis Back: no CVA tenderness Skin General skin exam: no rashes or lesions noted Neuro General: patient oriented x3 Extrem General: Yes normal to inspection Psych Appearance: grossly normal and well kempt Mental Status: mental status grossly normal Speech and movement: Normal speech and movement present and Clear speech present Affect: normal affect Attitude: cooperative Thought process: Normal thought process present Thought content: Normal thought content present Insight: Good insight present (Psych) Judgement: Good judgement present (Psych) Office Procedures Post Void Residual Post Residual Void Post Void Residual (PVR): 50 [id number] Void Residual by ultrasound Results AMB Urinalysis, Automated UA Leukoctes 0 Margret/uL Last Edit by Lázaro Mccollum [facility] on 09/26/22 10:15 UA Nitrite Negative Last Edit by Lázaro Mccollum [facility] on 09/26/22 10:15 UA Urobilinogen 0.2 mg/dL Last Edit by Lázaro Mccollum [facility] on 09/26/22 10:1 5 UA Protein 0 mg/dL Last Edit by Lázaro Mccollum [facility] on 09/26/22 10:15 UA pH 7.0 Last Edit by Lázaro Mccollum, [facility] on 09/26/22 10:15 UA Blood 0 Rosalio/uL Last Edit by Lázaro Mccollum [facility] on 09/26/22 10:15 UA Specific Emily 1.010 Last Edit by Lázaro Mccollum [facility] on 09/26/22 10: 15 UA Ketone Negative Last Edit by Lázaro Mccollum, [facility] on 09/26/22 10:15 UA Bilirubin 0 mg/dL Last Edit by Lázaro Mccollum [facility] on 09/26/22 10:15 UA Glucose 0 mg/dL Last Edit by Lázaro Mccollum [facility] on 09/26/22 10:15 Results Reviewed Results Reviewed: Laboratory Last Values Urine pH (Auto) 7.0 09/26/22 10:04 Specific Emily (Auto) 1.010 09/26/22 10:04 Urine Protein (Auto) 0 mg/dL 09/26/22 10:04 Glucose (UA)(Auto) 0 mg/dL 09/26/22 10:04 Urine Ketones (Auto) Negative 09/26/22 10:04 Urine Blood (Auto) 0 Rosalio/uL 09/26/22 10:04 Urine Nitrite (Auto) Negative 09/26/22 10:04 Urine Bilirubin (Auto) 0 mg/dL 09/26/22 10:04 Urine Urobilinogen (Auto) 0.2 mg/dL 08/08/23 10:04 Leukocyte Esterase (Auto) 0 Margret/uL 09/26/22 10:04 Assessment & Plan Assessment & Plan (1) Stress incontinence: Code(s): N39.3 - Stress incontinence (female) (male) Plan In office urinalysis results reviewed with the patient today. PVR 50 mL. Will increase Myrbetriq to 50 mg daily as discussed and prescribed. Will obtain retroperitoneal ultrasound for further assessment evaluation. Discussed near future in office cystoscopy if symptoms persist and/or worsen. Discussed at length importance of managing diabetes for improvement in urinary symptoms as well as overall health and well-being. Discussed bladder triggers/irritants Follow-up in 6-8 weeks with imaging to be completed prior and PVR at next visit; or sooner with any issues, concerns, and or questions. Orders: Orders US retroperitoneal comp Today N39.3 - Stress incontinence (female) (male) AMB Urinalysis Automated Today Z13.9 - Encounter for screening, unspecified AMB Post Void Residual by ultrasound Today N39.8 - Other specified disorders of urinary system Medications: Changed From mirabegron ER (Myrbetriq) 25 mg PO DAILY 90 days 90 tabs 0RF To mirabegron ER (Myrbetriq) 50 mg (2 x 25 mg) PO DAILY 30 days 60 tabs 1RF Patient Instructions: The patient had an opportunity to ask questions regarding the treatment plan. All questions were answered. Physical exam, labs, and imaging were discussed and reviewed in detail. As well as risks, benefits, and discussion of treatment choices. No major barriers to understanding were identified. The patient expressed understanding and agreement with the above treatment plan. The patient was made aware they should contact our office by phone for worsening of their current condition, the appearance of new symptoms, or with any questions or concerns. Compliance is encouraged with any medications and follow up testing that is ordered. It is a privilege to be allowed the opportunity to participate in? your urological care.? Again, if you have any questions or concerns If you have any questions or concerns please do not hesitate to contact me. The office is [phone]. This note is constructed using voice recognition software. While every effort has been made to ensure accuracy irrigator gravity flow errors may have been included. Yours sincerely, LONG Tran Coding Level of Care Code Est Pt Level 3 (62451) Diagnoses Stress incontinence N39.3 CPT Codes Post Residual Void - PVR CPT Code: 43029-Jpza Void Residual by ultrasound ([id number])
== END 2022-09-26 10:34 | disposition home or self-care (01) ==
PROVIDERS: PCP Registered Nurse; Visit Provider Nurse Practitioner Family
DX: N39.3 Stress incontinence (female) (male) (principal)
CPT/HCPCS: 99213

== ENCOUNTER → 2022-09-26 09:54 | Outpatient (BNVA) | payer OTHER, SELFPAY | PROVIDERS: PCP Registered Nurse; Visit Provider Nurse Practitioner Family | DX: N39.3 Stress incontinence (female) (male) (principal) | CPT/HCPCS: 51798; 99212 ==

== ENCOUNTER 2022-10-03 12:57 | Outpatient (REF) | payer OTHER, SELFPAY ==
--- NOTE | ~2022-10-03 | US_ITS ---
EXAMINATION: US PELVIS CLINICAL INFORMATION: Uterine enlargement; the last menstrual period was greater than one year prior. COMPARISON: CT abdomen and pelvis dated 01/04/2021. TECHNIQUE: Ultrasound of the pelvis is performed using both transabdominal and transvaginal transducers along with Doppler. Transvaginal imaging is performed due to inadequate visualization transabdominally. FINDINGS: Uterus: The uterus is anteverted and anteflexed. The uterus measures 14.8 x 5.7 x 5.7 cm. The double wall endometrial thickness is 3 mm. The uterus is smooth in contour and has normal myometrial echogenicity. Nabothian cysts are seen within the cervix. FIBROIDS: There are 2 fibroids seen. 1. Location: Leftward body, myometrial. Size: 1.0 x 0.7 x 0.8 cm. Fibroid characteristics: Heterogeneous echotexture, with calcifications 2. Location: Leftward body, myometrial. Size: 1.7 x 1.3 x 1.8 cm. Fibroid characteristics: Heterogeneous echotexture, with shadowing calcifications Adnexa: Both ovaries are visualized. There is normal color flow to the adnexa. There is no ovarian torsion. There is no pelvic ascites or fluid collection. Right ovary measures 3.3 x 1.6 x 1.8 cm, volume 5.0 mL. The right ovary contains a 2.0 cm benign, simple cyst, for which no imaging follow-up is recommended. Left ovary measures 2.3 x 1.0 x 1.4 cm, volume 1.7 mL. There are punctate calcifications. US/US pelvic and transvaginal IMPRESSION: 1. There are uterine fibroids. 2. Nabothian cysts are seen within the cervix. 3. There are punctate left ovarian calcifications, which may be psammomatous calcifications or a sequela of prior infection or inflammation.
== END 2022-10-03 12:58 | disposition home or self-care (01) ==
LOC: HO.US 12:57
PROVIDERS: PCP Registered Nurse; Visit Provider Registered Nurse
DX: N85.2 Hypertrophy of uterus (principal)
CPT/HCPCS: 76830; 76856

== ENCOUNTER 2022-10-26 13:38 | Outpatient (REF) | payer OTHER, SELFPAY ==
--- NOTE | ~2022-10-26 | US_ITS ---
EXAMINATION: US RETROPERITONEAL COMPLETE (RENAL) CLINICAL INFORMATION: Stress incontinence. COMPARISON: CT abdomen and pelvis with contrast 01/04/2021. Ultrasound abdomen limited 02/16/2020. TECHNIQUE: Real-time imaging of the kidneys and bladder. FINDINGS: RIGHT KIDNEY: 9.5 x 4.1 x 5.2 cm (SAG x AP x TRV). The kidney is normal in size, contour, and echogenicity. Renal cortical thickness is normal. No calculi or focal parenchymal lesions. No hydronephrosis. LEFT KIDNEY: 10.2 x 5.1 x 4.9 cm (SAG x AP x TRV). The kidney is normal in size, contour, and echogenicity. Renal cortical thickness is normal. No calculi or focal parenchymal lesions. No hydronephrosis. BLADDER: Well distended and normal. Bilateral ureteral jets are demonstrated. Prevoid bladder volume is 557.34 mL. Postvoid bladder volume is 18.69 mL. US/US retroperitoneal comp IMPRESSION: Large capacity bladder 557 mL. No hydronephrosis..
== END 2022-10-26 13:39 | disposition home or self-care (01) ==
LOC: HO.US 13:38
PROVIDERS: PCP Registered Nurse; Visit Provider Nurse Practitioner Family
DX: N39.3 Stress incontinence (female) (male) (principal)
CPT/HCPCS: 76770

== ENCOUNTER 2023-09-04 09:29 | Outpatient (REF) | payer MEDICAID, SELFPAY ==
--- NOTE | ~2023-09-04 | XR_ITS ---
EXAMINATION: XR SHOULDER, RIGHT CLINICAL INFORMATION: Chronic right shoulder pain, patient states increased with range of motion. COMPARISON: None available. TECHNIQUE: Four views of the right shoulder. FINDINGS: Mild degenerative changes in the acromioclavicular joint with joint space narrowing and hypertrophic change. Glenohumeral alignment is preserved. Mild degenerative changes with hypertrophic change along the glenoid. Spurring and sclerosis along the inferior aspect of the acromion. Tiny punctate calcification/ossification adjacent to the acromion. Small soft tissue calcifications adjacent to the humeral head and scapula/glenoid. There is the appearance of a 1.2 cm spiculated density in the periphery of the right upper lobe, best appreciated on the Grashey view, likely representing bony sclerosis/degenerative change along the anterior aspect of the right first rib, but dedicated views of the chest are recommended as pulmonary nodule could also have this appearance. XR/XR shoulder RT min 2V IMPRESSION: 1. Mild degenerative changes in the right shoulder. 2. There is the appearance of a 1.2 cm spiculated density in the periphery of the right upper lobe, best appreciated on the Grashey view, likely representing bony sclerosis/degenerative change along the anterior aspect of the right first rib, but dedicated views of the chest are recommended as pulmonary nodule could also have this appearance.
== END 2023-09-04 09:30 | disposition home or self-care (01) ==
LOC: HO.XRAY 09:29
PROVIDERS: PCP Registered Nurse; Visit Provider Registered Nurse
DX: M25.511 Pain in right shoulder (principal); G89.29 Other chronic pain
CPT/HCPCS: 73030

== ENCOUNTER 2023-09-18 08:01 | Outpatient (REF) | payer MEDICAID, SELFPAY | END 2023-09-18 08:02 | disposition home or self-care (01) | LOC: HO.MAMMO 08:01 | PROVIDERS: PCP Registered Nurse; Visit Provider Registered Nurse | DX: Z12.31 Encounter for screening mammogram for malignant neoplasm of breast (principal) | CPT/HCPCS: 77063; 77067 ==

== ENCOUNTER → 2023-09-18 08:15 | Outpatient (BNV) | payer MEDICAID, SELFPAY | PROVIDERS: PCP Registered Nurse; Visit Provider Radiology Diagnostic Radiology | DX: Z12.31 Encounter for screening mammogram for malignant neoplasm of breast (principal) | CPT/HCPCS: 77063; 77067 ==

== ENCOUNTER 2023-11-14 11:20 | Outpatient (REF) | payer MEDICAID, SELFPAY ==
[2023-11-14 17:04] LABS: CT PCR NOT DETECTED (Not Detect.); NG PCR NOT DETECTED (Not Detect.)
[2023-11-19 15:47] LABS: HPV mRNA E6/E7 Not Detected (Not Detected)
== END 2023-11-14 11:21 | disposition home or self-care (01) ==
LOC: HO.LAB 11:20
PROVIDERS: PCP Registered Nurse; Visit Provider Obstetrics & Gynecology
DX: N95.0 Postmenopausal bleeding (principal); R10.2 Pelvic and perineal pain
CPT/HCPCS: 87491; 87591; 87624; 88175; 99212

== ENCOUNTER 2023-11-14 11:20 | Outpatient (AMB) | payer MEDICAID, SELFPAY ==
--- NOTE | 2023-11-14 11:21 | A.OFFVIS_ITS ---
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 Last co testing was many years REPLACED BY [facility] Medical History Hepatitis C Elevated cholesterol Diabetes Urinary incontinence Hyperglycemia Surgical History Hx of colonoscopy History of cholecystectomy History of tubal ligation Family History Unknown No family history of colorectal cancer Social History Household Members: Spouse Housing: House Do you presently have visiting nurse or other home services: No Alcohol intake: unknown Patient Tobacco Use Status: Current everyday Tobacco user Tobacco use type: Cigarette Cigarettes Per Day: 4 Years Smoked: 30 Second Hand Smoke Exposure: Yes service: No Current occupational status: employed Current occupation: [employer] Review of Systems Const All systems reviewed & are unremarkable except as noted in HPI and below Physical Exam Vital Signs: Last Vital Signs BP 124/72 11/14/23 11:27 BMI result Body Mass Index 31.2 General: Yes no CVA tenderness External Female Exam: normal external appearance and normal appearance of the urethra Speculum Exam - Vagina: normal appearance of the vagina, normal palpation, no lesions and no masses Speculum Exam - Cervix: normal appearance of the cervix, normal palpation, no lesions, no masses and nontender Bimanual exam- vagina & uterus: normal bimanual exam, normal palpation, uterine size normal, normal palpation, uterine shape normal, No Cervical tenderness present and non-tender Bimanual Exam- Adnexa, other: normal adnexae Back/Spine/Pelvis Back: no CVA tenderness Assessment & Plan Assessment & Plan (1) Pelvic pain: Code(s): R10.2 - Pelvic and perineal pain Category: Medical Plan: Urine dip done in the office were both negative. GC and chlamydia taken and pelvic ultrasound ordered. Discussed with the patient the differential diagnosis of pelvic pain including but not limited to adnexal, uterine masses, pelvic infections (PID), GI the (Irritable bowel syndrome, diverticulitis, others), musculoskeletal, myofascial pain abdominal wall , adhesions, endometriosis, psychological and others causes. Will check results and treat accordingly. All questions answered, the patient verbalized understanding. Instructed the patient to schedule follow-up appointment in 2 weeks (2) Postmenopausal bleeding: Code(s): N95.0 - Postmenopausal bleeding Category: Medical Plan: Discussed with the patient the differential diagnosis of post menopausal bleeding with normal pelvic exam including but not limited to, endometrial hyperplasia, cancer, polyps and other causes; co testing done, recommended ultrasound to measure the endometrial stripe; discussed with the patient that if the endometrial thickness is 4 mm or less the negative predictive value of endometrial pathology is 99%, otherwise If endometrial thickness is more than 4 mm will proceed with endometrial sampling versus hysteroscopy D&C polypectomy depending on the ultrasound findings. Instructed the patient to schedule an ultrasound with a follow-up appointment in 2 weeks. All questions answered, the patient verbalized understanding and agreed with the plan. This note was generated with a voice recognition program. Some errors may have been overlooked during the review of this note. Sometimes these errors may affect the content or meaning of a given sentence. Orders: Orders US pelvic and transvaginal Today N95.0 - Postmenopausal bleeding, R10.2 - Pelvic and perineal pain Coding Level of Care Code Est Pt Level 3 (89283) Diagnoses Pelvic pain R10.2 Postmenopausal bleeding N95.0
[2023-11-14 11:27] VITALS: BP 124/72; BMI 31.2
== END 2023-11-14 11:47 | disposition home or self-care (01) ==
PROVIDERS: PCP Registered Nurse; Referring Provider Registered Nurse; Supervising Provider Registered Nurse; Visit Provider Obstetrics & Gynecology
DX: R10.2 Pelvic and perineal pain (principal); N95.0 Postmenopausal bleeding
CPT/HCPCS: 99213

== ENCOUNTER 2023-11-21 11:10 | Outpatient (REF) | payer MEDICAID, SELFPAY ==
--- NOTE | ~2023-11-21 | US_ITS ---
EXAMINATION:US PELVIS TRANSABDOMINAL AND TRANSVAGINAL CLINICAL INFORMATION: R10.2 - Pelvic and perineal pain COMPARISON: No priors available. LMP: 4 years ago FINDINGS: UTERUS: The uterus is anteverted. Size: 14.1 x 6.5 x 6.5 cm. Uterine mass: Intramural uterine mass likely fibroid 6.4 x 6 x 6.5 cm and 2.4 x 3 x 2 cm. Cervix: Grossly unremarkable. Endometrium: Echogenic vascular endometrial structure found concerning for possible polyp versus endometrial lesion 1.4 x 0.7 x 0.7 cm. endometrial thickness measures 0.5 cm no fluid within the endometrium. ADNEXA: Normal Right ovary: Normal in size. Left ovary: Normal in size. Doppler exam: Normal Doppler flow identified in both ovaries. FREE FLUID: Trace amount of free fluid. OTHER FINDINGS: None US/US pelvic and transvaginal IMPRESSION: * There are 2 intramural uterine masses likely fibroids the largest measure up to 6.5 cm. * Endometrial echogenic structure found 1.4 cm with internal flow concerning for possible polyp versus endometrial lesion. MANAGER BIOLOGICS consultation recommended, consider D&C, if not performed follow-up ultrasound in 6 weeks is advised. (Referring physician staff is being called, by physician staff assistance, to be alerted of the above critical findings and recommendations.) 01/03/2024 6:42 AM FILLER [employer]ENDER * Electronically signed by: Susie Alfonso MD 01/03/2024 07:43 AM [facility]
== END 2023-11-21 11:11 | disposition home or self-care (01) ==
LOC: HO.US 11:10
PROVIDERS: PCP Registered Nurse; Visit Provider Obstetrics & Gynecology
DX: R10.2 Pelvic and perineal pain (principal); N95.0 Postmenopausal bleeding
CPT/HCPCS: 76830; 76856

== ENCOUNTER 2023-11-27 10:51 | Outpatient (REF) | payer MEDICAID, SELFPAY ==
[2023-11-27 11:36] LABS: MANUAL DIFF FLAG NO
[2023-11-27 11:43] LABS: Basophils Percent Auto 0.4 % (0-2); Eosinophils Absolute Auto 0.2 X10*3/uL (0.0-0.4); Eosinophils Percent Auto 2.1 % (0-4); Hematocrit 43.5 % (37.0-47.0); Hemoglobin 15.1 g/dl (12.0-16.0); Imm Gran Abs Auto 0.04 X10*3/uL (0.00-0.03); Imm Gran Pct Auto 0.5 % (0.0-0.4); Lymphocytes Absolute Auto 1.8 X10*3/uL (1.2-4.9); Lymphocytes Percent Auto 20.8 % (20-40); Mean Corpuscular HGB Conc 34.7 g/dl (31.0-35.0); Mean Corpuscular Hemoglobin 28.8 pg (27.0-33.0); Mean Platelet Volume 9.7 fL (9.4-12.3); Monocytes Absolute Auto 0.6 X10*3/uL (0.1-1.2); Neutrophils Absolute Auto 5.9 x10*3/uL (2.0-8.3); Neutrophils Percent Auto 69.2 % (45-73); Platelet Count 206 X10*3/uL (160-400); Red Blood Count 5.24 X10*6/uL (4.20-5.50); Red Cell Distribution Width 14.1 % (11.0-16.0); White Blood Count 8.5 X10*3/uL (4.8-10.8)
[2023-11-27 12:09] LABS: Alanine Aminotransferase 27 U/L (0-31); Albumin Level 4.5 g/dL (3.5-5.0); Alkaline Phosphatase 82 U/L (39-117); Anion Gap 15 (12-20); Aspartate Amino Transferase 20 U/L (5-31); Bilirubin Total 0.5 mg/dL (0.0-1.0); Blood Urea Nitrogen 8 mg/dL (9-16); Carbon Dioxide 26 mmol/L (22-29); Chloride 103 mmol/L (96-108); Cholesterol 210 mg/dL (<200); Estimated Glomerular Filt Rate > 60; Glucose Random 110 mg/dL (60-115); HDL Cholesterol 37 mg/dL (>40); LDL Cholesterol Calculated 106 mg/dL (<100); Potassium 4.5 mmol/L (3.3-5.1); Sodium 139 mmol/L (135-145); Total Protein 7.9 g/dL (6.5-8.0); Triglycerides 337 mg/dL (<150)
[2023-11-27 12:21] LABS: Creatinine Urine 20.21 mg/dL; Microalbumin Urine < 5.0 mg/L
[2023-11-27 12:28] LABS: Ferritin 59 ng/mL (10-250); TSH reflex Free T4 1.16 uIU/mL (0.32-4.0); Vitamin D 25-OH Total 38.9 ng/mL (>30)
[2023-11-27 12:58] LABS: HBS Num1 0.28 mIU/mL (0-7.99); HBc Num1 0.22 S/CO (0.00-0.79); HBsAGNum1 0.38 S/CO (0.00-0.99); Hepatitis B Core Antibody Nonreactive (Nonreactive); Hepatitis B Surface Antigen Negative (Negative); ~Hepatitis B Surface Antibody NONREACTIVE (Nonreactive)
== END 2023-11-27 10:52 | disposition home or self-care (01) ==
LOC: HO.HHCL 10:51
PROVIDERS: Visit Provider Registered Nurse
DX: Z00.00 Encounter for general adult medical examination without abnormal findings (principal); E11.9 Type 2 diabetes mellitus without complications; E61.1 Iron deficiency
CPT/HCPCS: 36415; 80053; 80061; 82043; 82306; 82570; 82728; 84443; 85025; 86704; 86706; 87340

== ENCOUNTER 2023-12-05 10:44 | Outpatient (REF) | payer MEDICAID, SELFPAY | END 2023-12-05 10:45 | disposition home or self-care (01) | LOC: HO.XRAY 10:44 | PROVIDERS: PCP Registered Nurse; Visit Provider Registered Nurse | DX: R93.89 Abnormal findings on diagnostic imaging of other specified body structures (principal) | CPT/HCPCS: 71046 ==

== ENCOUNTER 2024-01-03 11:35 | Outpatient (REF) | payer MEDICAID, SELFPAY ==
--- NOTE | 2024-01-03 13:28 | MHC.AU.HA1 ---
Hearing Aid Evaluation Date of Visit: 01/03/24 Historical Information: Description of Hearing: Right Ear: Moderately-severe to severe sensorineural hearing loss; Left Ear: Normal hearing Summary: Provided hearing test and medical clearance for CROS system from [facility]. 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 Had unremarkable MRI, no known etiology. No speech discrimination abilities in right ear, sounds fuzzy, like broken speaker. Discussed how CROS system works, time needed to acclimate, importance of consistent use. Eva motivated to try, hoping to improve awareness on right side. Opted for rechargeable system compatible with SamsuInSequent cellphone. Advised Phonak rechargeable system has maximum battery life of ~12 hours. Eva okay with this as she is primarily at home with . Only leaves home, as needed, shopping, appointments, etc. Hearing Aid Prescription: Based on the individual?s shared listening needs, communication environments, dexterity, desire for connectivity, and personal preferences, the following prescription for amplification has been made: Right ear: Make, Model, Color: Phonak CROS L-R Color: Silver Fisher Battery Size: Rechargeable Bag Machine Operator Helper/Slim Tube: 1C Type of Earmold/Dome/CShell/SlimTip: Small open dome Left ear: Make, Model, Color: Phonak Audeo L70-R Color: Silver Fisher Battery Size: Rechargeable Bag Machine Operator Helper/Slim Tube: 1S Type of Earmold/Dome/CShell/SlimTip: Small open dome Accessories/Assistive Technology: Banking Manager Plan of Care: Patient wishes to purchase hearing aids as prescribed Action Taken/Action Needed: Hearing Instrument Fitting to be scheduled when materials arrive Primary Diagnosis: H90.41 SNHL Unilateral Right Ear, W/Unrestricted Contralateral Hearing Signature: Provider: Rishabh Mendoza, [facility]
== END 2024-01-03 11:36 | disposition home or self-care (01) ==
LOC: HO.HAP 11:35
PROVIDERS: Visit Provider Registered Nurse
DX: Z46.1 Encounter for fitting and adjustment of hearing aid (principal); H90.41 Sensorineural hearing loss, unilateral, right ear, with unrestricted hearing on the contralateral side
CPT/HCPCS: 92591

== ENCOUNTER 2024-01-07 10:57 | Outpatient (AMB) | payer MEDICAID, SELFPAY ==
[2024-01-07 10:59] VITALS: BP 118/74; BMI 31.0
--- NOTE | 2024-01-07 10:59 | MHC.OFFVIS ---
Vital Signs 01/07/24 10:59 Height 5 ft Weight 72 kg BMI 31.0 Intake Visit Reasons: pre op /hysteroscopy/US follow up Allergies No Known Allergies Allergy (Verified 11/14/23 11:28) PFSH Medical History Hepatitis C Elevated cholesterol Diabetes Urinary incontinence Hyperglycemia Surgical History Hx of colonoscopy History of cholecystectomy History of tubal ligation Family History Unknown No family history of colorectal cancer Social History Household Members: Spouse Housing: House Do you presently have visiting nurse or other home services: No Alcohol intake: unknown Patient Tobacco Use Status: Current everyday Tobacco user Tobacco use type: Cigarette Cigarettes Per Day: 4 Years Smoked: 30 Second Hand Smoke Exposure: Yes service: No Current occupational status: employed Current occupation: [employer]
--- NOTE | 2024-01-07 11:01 | MHC.OFFVIS ---
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 Size: 14.1 x 6.5 x 6.5 cm. Uterine mass: Intramural uterine mass likely fibroid 6.4 x 6 x 6.5 cm and 2.4 x 3 x 2 cm. Cervix: Grossly unremarkable. Endometrium: Echogenic vascular endometrial structure found concerning for possible polyp versus endometrial lesion 1.4 x 0.7 x 0.7 cm. endometrial thickness measures 0.5 cm no fluid within the endometrium. ADNEXA: Normal Right ovary: Normal in size. Left ovary: Normal in size. Doppler exam: Normal Doppler flow identified in both ovaries. FREE FLUID: Trace amount of free fluid. [facility] Medical History Hepatitis C Elevated cholesterol Diabetes Urinary incontinence Hyperglycemia Surgical History Hx of colonoscopy History of cholecystectomy History of tubal ligation Family History Unknown No family history of colorectal cancer Social History Household Members: Spouse Housing: House Do you presently have visiting nurse or other home services: No Alcohol intake: unknown Patient Tobacco Use Status: Current everyday Tobacco user Tobacco use type: Cigarette Cigarettes Per Day: 4 Years Smoked: 30 Second Hand Smoke Exposure: Yes service: No Current occupational status: employed Current occupation: [employer] Female Reproductive History Menstrual Date of last menstrual period: 12/18/19 Total pregnancies: 2 Full term: 2 Review of Systems Card Reports as per HPI and Reports no additional complaints Resp Reports as per HPI and Reports no additional complaints GI Reports as per HPI and Reports no additional complaints Reports as per HPI Physical Exam Vital Signs: Last Vital Signs BP 118/74 01/07/24 10:59 BMI result Body Mass Index 31.0 Const General: cooperative, healthy appearing and comfortable Resp Effort & Inspection: normal respiratory effort Auscultation: clear to auscultation bilaterally Percussion: percussion normal Cardio Palpation: normal PMI Rate: regular rate Rhythm: regular rhythm Heart sounds: no murmurs and no rubs Peripheral pulses: Peripheral pulses 2+ throughout GI Inspection: Yes normal to inspection Palpation (GI): Soft to palpation, nontender, no guarding, not rigid and No hepatosplenomegaly present Percussion: Yes normal to percussion Auscultation: normal bowel sounds Rectal Exam - Female: deferred Assessment & Plan Assessment & Plan (1) Abnormal ultrasound of endometrium: Comment: Possible endometrial polyp Code(s): R93.5 - Abnormal findings on diagnostic imaging of other abdominal regions, including retroperitoneum Category: Medical Plan: Discussed with the patient the finding on ultrasound showing abnormal endometrium possible endometrial polyp or endometrial lesion, recommended hysteroscopy D&C possible polypectomy/myomectomy. Discussed with the patient the procedure , all benefits and risks including but not limited to inability to complete the procedure , insufficient endometrial tissue for a complete evaluation of the endometrial cavity , bleeding, infection, possible need for blood transfusion with all its risk ( HIV,syphilis, Hepatitis, anaphylaxis shock, others..), injury to bladder, rectum, possible need for laparoscopy/laparotomy or hysterectomy. The patient verbalized understanding and signed the consent. Instructions given the patient to stay NPO after midnight the day prior to the procedure and to take only the specific medication (s) discussed the morning of the surgical procedure and to schedule a 2 week postoperative appointment Coding Level of Care Code Est Pt Level 3 (21855) Diagnoses Abnormal ultrasound of endometrium R93.5
[2024-01-07 11:02] VITALS: BMI 31.0
--- OUTSIDE RECORDS SUMMARY | 2024-01-11 13:04 | XMS_ITS | Continuity of Care Document ---
Author Organization [facility] ter Address [address] [place] [id number]- Care Team Providers Care Converting Supervisor Name Role Phone Not on Staff, PCP Primary Care Physician Unavail able Encounter [facility] [place] Date(s): 01/05/21 - 01/09/[address] [address]- Discharge Disposition: A-D/C Home Attending Physician: Sylvia Canchola MD Admitting Physician: Emilee Arellano MD Referring Physician: Not on Staff, Referring MD Allergies, Adverse Reactions, Alerts Substance Reaction Severity Status NKA Active Medications atorvastatin 10 mg oral tablet 1 tablet = 10 mg, By Mouth, Daily, # 30 tablet, 0 Refills, Maintenance, 01/05/21 20:35:00 EST, Partial fill upon patient request if the prescription is for a schedule II opioid drug. Start Date: 01/05/21 Status: Ordered ciprofloxacin 500 mg oral tablet 1 tablet = 500 mg, By Mouth, 2 times a day, for 4 days, # 7 tablet, 0 Refills, Acute 01/13/21 11:59:00 EST, 01/09/21 11:59:00 EST, Tablet, [id number], Partial fill upon patient request if theprescription is for a schedule II opioid drug. Start Date: 01/09/21 Stop Date: 01/13/21 Status: Ordered ferrous sulfate 325 mg oral enteric coated tablet 325 mg, 1, tablet, By Mouth, Every other day, # 15 tablet, Refills 0, Tot. Refills 0, Maintenance, 01/09/21 12:04:00 EST, Route to Pharmacy Electronically, [id number], Partial fill upon patient request if the prescription is for a schedule II... Start Date: 01/09/21 Stop Date: 02/08/21 Status: Ordered metFORMIN 1000 mg oral tablet 1 tablet = 1,000 mg, By Mouth, 2 times a day, # 180 tablet, 0 Refills, Maintenance, 01/05/21 20:35:00 EST, Tablet, Partial fill upon patient request if the prescription is for a schedule II opioid drug. Start Date: 01/05/21 Status: Ordered Myrbetriq 25 mg oral tablet, extended release 1 tablet = 25 mg, By Mouth, Daily, do not crush or chew, # 30 tablet, 0 Refills, Maintenance, 01/05/21 20:35:00 EST, ER Tablet, Partial fill upon patient request if the prescription is for a scheduleII opioid drug. Start Date: 01/05/21 Status: Ordered Problem List Condition Effective Dates Status Health Status Inform ant Transaminitis(Confirmed) Active Results Radiology Reports * Exam Date Time Procedure Performing Provider Status 01/08/21 12:27 PM ERCP Biliary Only Rigo Beckwith [facility] (Verified) Notes: (ERCP Biliary Only) Reason For Exam: stone RESULT: ERCP Biliary Only ERCP Biliary Only INDICATION: Reason: stone COMPARISONS: None TECHNIQUE: Fluoroscopy support was provided. There was no radiologist in attendance. Fluoroscopy time: 49.3 seconds Technologist time: 30 minutes Exposure: 17.7 mGy FINDINGS: 10 images were submitted. Balloon sweep was performed. There are surgical clips in the right upper quadrant. Please refer to operative note for full details. IMPRESSION: See above. WSN: [id number] Ordering Physician: Sheldon Law Dictated By: Shashank Dominguez MD Dictated Date/Time: 01/08/21 2:31 pm Reviewed By: Shashank Dominguez MD Signed By: Shashank Dominguez MD Signed Date/Time: 01/08/21 2:31 pm Transcribed By: DEANDRA Transcribed Date/Time: 01/08/21 2:30 pm Vital Signs Most recent to oldest [Reference Range]: 1 2 3 Weight 69.8 kg (01/08/21 11:27 AM) 69.8 kg (01/05/21 6:00 PM) Oxygen Saturation [94-100 %] 100 % (01/09/21 8:00 AM) 99 % (01/08/21 7:00 PM) 98 % (01/08/21 12:26 PM) Pulse Rate [55-90 bpm] 60 bpm (01/09/21 8:00 AM) 56 bpm (01/08/21 7:00 PM) 62 bpm (01/08/21 11:27 AM) Blood Pressure [90-138/55-84 mm Hg] 149/79mm Hg *H* (01/09/21 8:00 AM) 137/73mm Hg (01/08/21 7:00 PM) 141/82mm Hg *H* (01/08/21 12:26 PM) Respiratory Rate [16-30 br/min] 17 br/min (01/09/21 8:00 AM) 18 br/min (01/08/21 7:00 PM) 12 br/min *L* (01/08/21 12:26 PM) Temperature [96.8-100.4 DegF] 98.2 DegF (01/09/21 8:00 AM) 98.9 DegF (01/08/21 7:00 PM) 97.6 DegF (01/08/21 11: AM) Mode of Delivery (Oxygen) Room air (01/09/21 8:00 AM) Room air (01/08/21 7:00 PM) Room air (01/08/21 12:26 PM) Blood pressure sites Arm, right (01/09/21 8:00 AM) Arm, right (01/08/21 7:00 PM) Arm, right (01/08/21 12:26 PM) Temperature Route Oral (01/09/21 8:00 AM) Oral (01/08/21 7:00 PM) Oral (01/08/21 11:27 AM)
--- OUTSIDE RECORDS SUMMARY | 2024-01-11 13:04 | XMS_ITS | Continuity of Care Document ---
Author Organization [facility] Address [address] [place] [id number]- Care Team Providers Care Leather Production Machine Operator Name Role Phone Not on Staff, PCP Primary Care Physician Unavail able Encounter [facility] [place] Date(s): 10/12/22 - 11/11/22 [facility] [address] [place] [id number] Allergies, Adverse Reactions, Alerts No Known Allergies Medications atorvastatin 10 mg oral tablet 1 tablet = 10 mg, By Mouth, Daily, # 30 tablet, 0 Refills, Maintenance, 01/05/21 20:35:00 EST, Partial fill upon patient request if the prescription is for a schedule II opioid drug. Start Date: 01/05/21 Status: Ordered ferrous sulfate 325 mg oral enteric coated tablet See Instructions, TAKE 1 TABLET BY MOUTH EVERY OTHER DAY X30 DAYS, # 15 tablet, Refills 0, Instructions Replace Required Details, Route to Pharmacy Electronically, [id number], 155, cm, 02/21/20 15:48:00 EST, Height, 74.7, kg, 02/18/20 22:02:00 ES... Start Date: 02/01/21 Status: Ordered metFORMIN 1000 mg oral tablet [...] Date: 01/05/21 Status: Ordered Problem List Condition Confirmation Course Effective Dates Status Health St atus Informant Transaminitis Confirmed Active Social History Social History Type Response Smoking Status 5-9 cigarettes (betw een 1/4 to 1/2 pack)/day in last 30 days entered on: 09/13/22 Sex Patient Care team information Care Team Personnel Name: Carline SANDOVAL, Gayatri Position: [facility] AMB Nurse Member Role: Primary Care Nurse Name: Dorie Lu RN Position: [facility] RN Member Role: Primary Care Nurse Name: Not on Staff, PCP Position: [facility] Physician (General Medicine) Member Role: PCP Name: Geoff Mckeon MD Position: [facility] Renal MD Member Role: Lifetime Consulting Physician Address: Address: [address] [place] [address] [address] [facility] [place] [address]- Care Team Related Persons Name: GWYN ALVARES
--- OUTSIDE RECORDS SUMMARY | 2024-01-11 13:04 | XMS_ITS | Continuity of Care Document ---
Author Organization [facility] Address [address] [place] [address]- Care Team Providers Care Mcat Instructor Name Role Phone Not on Staff, PCP Primary Care Physician Unavail able Encounter [facility] [place] Date(s): 02/01/21 - 03/03/21 [facility] [address] [place] [id number]- Allergies, Adverse Reactions, Alerts No Known Allergies [...] Replace Required Details, Route to Pharmacy Electronically, [id number], 155, cm, 02/21/20 15:48:00 EST, Height, 74.7, [...]
--- OUTSIDE RECORDS SUMMARY | 2024-01-11 13:04 | XMS_ITS | Continuity of Care Document ---
Author Organization [facility] ter Address [address] [place] [id number]- Care Team Providers Care Wood Floor Layer Name Role Phone Not on Staff, PCP Primary Care Physician Unavail able Encounter [facility] Date(s): 01/04/21 - 01/04/[address] [address]- Discharge Disposition: A-D/C Walkout Attending Physician: Not on Staff, Attending MD Admitting Physician: Not on Staff, Admitting MD Referring Physician: Not on Staff, Referring MD Allergies, Adverse Reactions, Alerts Substance Reaction Severity Status NKA Active Vital Signs Most recent to oldest [Reference Range]: 1 2 Oxygen Saturation [94-100 %] 99 % (01/04/21 7:34 AM) 100 % (01/04/21 7:23 AM) Pulse Rate [55-90 bpm] 54 bpm *L* (01/04/21 7:34 AM) 86 bpm (01/04/21 7:23 AM) Blood Pressure [90-138/55-84 mm Hg] 145/ 90mm Hg *H* (01/04/21 7:34 AM) Respiratory Rate [16-30 br/min] 20 br/mi n (01/04/21 7:34 AM) Temperature [96.8-100.4 DegF] 97.6 DegF (01/04/21 7:34 AM) Mode of Delivery (Oxygen) Room air (01/04/21 7:34 AM) Room air (01/04/21 7:23 AM) Blood pressure sites Arm, right (01/04/21 7:34 AM) Temperature Route Oral (01/04/21 7:34 AM)
--- OUTSIDE RECORDS SUMMARY | 2024-01-11 13:04 | XMS_ITS | Continuity of Care Document ---
Author Organization [facility] ter Address [address] [place] [address]- Care Team Providers Care Radiation Monitor Name Role Phone Not on Staff, PCP Primary Care Physician Unavail able Encounter [facility] [place] Date(s): 02/18/20 - 02/21/[address] [address] Discharge Disposition: A-D/C Home Attending Physician: Ryan Michel MD, I Admitting Physician: Vasu Toscano Sr, MD Referring Physician: Not on Staff, Referring MD Allergies, Adverse Reactions, Alerts Substance Reaction Severity Status NKA Active Medications Tylenol 325 mg oral tablet 650 mg, Tablet, By Mouth, Every 6 hours, PRN for Pain , Mild, Routine, 02/18/20 20:21:00 EST Start Date: 02/18/20 Stop Date: 02/22/20 Status: Discontinued Procedures Procedure Date Related Diagnosis Body Site Status Endoscopic retrograde cholangiopancreatography (ERCP); with removal of calculi/debris from biliary/pancreatic duct(s) 02/19/20 Compl eted Results Radiology Reports * Exam Date Time Procedure Performing Provider Status 02/19/20 2:43 PM ERCP Both Ducts Adela Hernández (Verified) Notes: (ERCP Both Ducts) Reason For Exam: cholecystitis RESULT: ERCP Both Ducts ERCP Both Ducts INDICATION: cholecystitis COMPARISONS: None TECHNIQUE: Fluoroscopy support was provided. There was no radiologist in attendance. Fluoroscopy time: 22 seconds Technologist time: 60 minutes Exposure: 6.6 mGy FINDINGS: 5 images were submitted. Please refer to operative note for full details. IMPRESSION: See above. WSN: [id number] Ordering Physician: Marlo Colón Dictated By: Shashank Dominguez MD Dictated Date/Time: 02/19/20 2:51 pm Reviewed By: Shashank Dominguez MD Signed By: Shashank Dominguez MD Signed Date/Time: 02/19/20 2:51 pm Transcribed By: DEANDRA Transcribed Date/Time: 02/19/20 2:51 pm Vital Signs Most recent to oldest [Reference Range]: 1 2 3 Height 155 cm (02/21/20 3:48 PM) 155 cm (02/21/20 12:02 PM) 155 cm (02/21/20 8:05 AM) Weight 74.7 kg (02/20/20 6:53 AM) 74.7 kg (02/19/20 1:37 PM) 74.7 kg (02/18/20 10:02 PM) Oxygen Saturation [94-100 %] 97 % (02/21/20 3:48 PM) 98 % (02/21/20 12:02 PM) 97 % (02/21/20 8:05 AM) Pulse Rate [55-90 bpm] 68 bpm (02/21/20 3:48 PM) 58 bpm (02/21/20 12:02 PM) 64 bpm (02/21/20 8:05 AM) Body Mass Index [18.5-24.99] 31.09 *>HHI* (02/20/20 6:53 AM) 31.09 *>HHI* (02/19/20 1:37 PM) 31.09 *>HHI* (02/18/20 10:02 PM) Blood Pressure [90-138/55-84 mm Hg] 160/80mm Hg *H* (02/21/20 3:48 PM) 158/92mm Hg *H* (02/21/20 12:02 PM) 188/76mm Hg *H* (02/21/20 8:05 AM) Respiratory Rate [16-30 br/min] 20 br/min (02/21/20 3:48 PM) 19 br/min (02/21/20 9:31 AM) 19 br/min (02/21/20 8:05 AM) Temperature [96.8-100.4 DegF] 99.1 DegF (02/21/20 3:48 PM) 98.5 DegF (02/21/20 12:02 PM) 98.4 DegF (02/21/20 8:05 AM) Liters per Minute 2 L/min (02/20/20 12:00 PM) 6 L/min (02/20/20 11:15 AM) Mode of Delivery (Oxygen) Room air (02/21/20 3:48 PM) Room air (02/21/20 12:02 PM) Room air (02/21/20 8:05 AM) Blood pressure sites Arm, left (02/21/20 3:48 PM) Arm, right (02/21/20 12:02 PM) Arm, right (02/21/20 8:05 AM) Temperature Route Oral (02/21/20 3:48 PM) Oral (02/21/20 12:02 PM) Oral (02/21/20 8:05 AM) Dry Weight 74.7 kg (02/18/20 10:02 PM)
--- OUTSIDE RECORDS SUMMARY | 2024-01-11 13:04 | XMS_ITS | Continuity of Care Document ---
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 Name Role Phone Not on Staff, PCP Primary Care Physician Unavail able [place] [facility] [place]13/22 - 09/13/[address] [address]- Encounter Diagnosis Abdominal pain(Final) - 09/13/22 Discharge Disposition: A-D/C Home Attending Physician: Siobhan Dexter DO Admitting Physician: Siobhan Dexter DO Referring Physician: Not on Staff, Referring MD Allergies, Adverse Reactions, Alerts No Known Allergies Medications atorvastatin 10 mg oral tablet 1 tablet = 10 mg, By Mouth, Daily, # 30 tablet, 0 Refills, Maintenance, 01/05/21 20:35:00 EST, Partial fill upon patient request if the prescription is for a schedule II opioid drug. Start Date: 01/05/21 Status: Ordered Dilaudid Inj 0.5 mg, Injection, IV Push Slowly, Every 4 hours, PRN for Pain , Severe, Routine, 09/13/22 18:19:00EDT Start Date: 09/13/22 Stop Date: 09/20/22 Status: Ordered ferrous sulfate 325 mg oral enteric coated tablet See Instructions, TAKE 1 TABLET BY MOUTH EVERY OTHER DAY X30 DAYS, # 15 tablet, Refills 0, Instructions Replace Required Details, Route to Pharmacy Electronically, [id number], 155, cm, 02/21/20 15:48:00 EST, Height, 74.7, [...] [facility] atus Informant Transaminitis Confirmed Active Results Radiology Reports * Exam Date Time Procedure Performing Provider Status 09/13/22 8:[address] Abd/Pelvis W/ IV Contrast Only Stup ak , Errol; Auth (Verified) Notes: (CT Abd/Pelvis W/ IV Contrast Only) Reason For Exam: RUQ abdominal pain;Other: RESULT: CT Abd/Pelvis W/ IV Contrast Only CT Abd/Pelvis W/ IV Contrast Only Hx of Present Illness: pt c o sharp R sided 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 similar presentation to kidney stones in past. denies difficulty urinating, hematuria, fevers, chills, vomiting.; Reason: Other:; RUQ abdominal pain; Clinical Question(s): Biliary Obstruction; appendicitis, abscess; Order Comment: TECHNIQUE: Spiral CT through the abdomen and pelvis with IV contrast formatted in 3 planes. 100 cc of Omnipaque 300 was administered intravenously. This study was performed without oral contrast. Weight-based protocol using automatic tube modulation was used to optimize exposure parameters. CTDIvol Body: 19.10 mGy, DLP Body: 938 mGy*cm. COMPARISON: MRI of the abdomen performed on 01/07/2021. FINDINGS: System Support Specialist View Findings, Lines and Tubes: None. Visualized Chest: Minimal dependent changes of the imaged lung bases. Small type I hiatal hernia. Diaphragm: Unremarkable. Liver: Diffuse low-attenuation throughout the liver parenchyma consistent with hepatic steatosis. There is a 1.5 cm cyst in the left lobe of the liver. Gallbladder: Absent consistent with prior cholecystectomy. Bile ducts: Mild dilatation of the common bile ducts likely representing postcholecystectomy change. Spleen: 3 mm calcification in the anterior spleen. The spleen is otherwise unremarkable. Pancreas: Unremarkable. Adrenal glands: Unremarkable. Kidneys and ureters: There is a 2 mm nonobstructing calculus in the upper pole of the right kidney with mild adjacent cortical thinning. Subcentimeter hypodensity in the interpolar right kidney whichis too small to further characterize. Bladder: Unremarkable. Reproductive organs: Prominent uterus which may represent a fibroid uterus. Prominent right ovary measuring 3.6 cm. Stomach, small bowel, and large bowel: Unremarkable. Appendix: Normal. Peritoneum and retroperitoneum: There is no evidence of free fluid or free air in the abdomen or pelvis. Lymph nodes: No enlarged lymph nodes. Blood vessels: Moderate atherosclerotic vascular calcification. No aortic aneurysm. Abdominal and pelvic wall: Tiny fat filled umbilical hernia. Bones: No acute abnormality. Multilevel discogenic degenerative changes with spurring. Lumbar spinefacet arthropathy. IMPRESSION: 1. There is no evidence of obstructive uropathy. 2. 2 mm nonobstructing calculus with adjacent cortical thinning in the upper pole of the right kidney. 3. Mildly prominent uterus which may represent a fibroid uterus. Prominent right ovary. Further evaluation may be performed with a pelvic ultrasound scan. WSN: [id number] Ordering Physician: Brunilda Sanchez Dictated By: Judy Rich MD Dictated Date/Time: 09/13/22 9:37 pm Reviewed By: Judy Rich MD Signed By: Judy Rich MD Signed Date/Time: 09/13/22 9:37 pm Transcribed By: DEANDRA Transcribed Date/Time: 09/13/22 8:53 pm Vital Signs Most recent to oldest [Reference Range]: 1 2 3 Height 153 cm (09/13/22 9:08 PM) 153 cm (09/13/22 6:23 PM) 153 cm (09/13/22 5:32 PM) Oxygen Saturation [94-100 %] 100 % (09/13/22 10:16 PM) 98 % (09/13/22 9:08 PM) 97 % (09/13/22 5:32 PM) Pulse Rate [55-90 bpm] 62 bpm (09/13/22 10:16 PM) 58 bpm (09/13/22 9:08 PM) 64 bpm (09/13/22 5:32 PM) Blood Pressure [90-138/55-84 mm Hg] 125/80mm Hg (09/13/22 10:16 PM) 122/65mm Hg (09/13/22 9:08 PM) 117/77mm Hg (09/13/22 5:32 PM) Respiratory Rate [16-30 br/min] 20 br/min (09/13/22 10:16 PM) 18 br/min (09/13/22 9:08 PM) 20 br/min (09/13/22 7:05 PM) Temperature [96.8-100.4 DegF] 97.2 DegF (09/13/22 9:08 PM) 97.7 DegF (09/13/22 5:32 PM) Mode of Delivery (Oxygen) Room air (09/13/22 10:16 PM) Room air (09/13/22 9:08 PM) Room air (09/13/22 5:32 PM) Blood pressure sites Arm, right (09/13/22 10:16 PM) Arm, left (09/13/22 9:08 PM) Arm, left (09/13/22 5:32 PM) Temperature Route Oral (09/13/22 9:08 PM) Oral (09/13/22 5:32 PM) Dry Weight 72 kg (09/13/22 9:08 PM) 72 kg (09/13/22 6:23 PM) 72 kg (09/13/22 5:32 PM) Dry Weight Obtained Via Patient/family s tated (09/13/22 5:32 PM) Social History Social History Type Response Smoking Status 5-9 cigarettes (betw een 1/4 to 1/2 pack)/day in last 30 days entered on: 09/13/22 Sex Note * Judy Anderson NP: PERFORM Event Display: Patient Education Leaflets Authored Date: [id number] Unknown Causes of Abdominal Pain (Adult) ?? [id number] Unknown Causes of Abdominal Pain (Adult) The exact cause of your belly (abdominal) pain is not clear. Your exam and tests don't suggest a dangerous cause at this time. This does not mean that this is something to worry about. Everyone likesto know the exact cause of the problem. But sometimes with belly pain, there is no clear-cut cause,and this could be a good thing. Your symptoms can be treated, and you should feel better.?? Your condition does not seem serious now. But sometimes the signs of a serious problem may take more time to appear. For this reason,??it's important for you to watch for any new symptoms, problems,??or worsening of your condition. Over the next few days, the abdominal pain may come and go. Or it may be constant. Other common symptoms can include nausea and vomiting. Sometimes it can be difficult to tell if you feel nauseous. You may just feel bad and not connect that feeling to nausea. Constipation, diarrhea, and a fever maygo along with the pain. The pain may continue even if treated correctly over the following days. Depending on how things go, sometimes the cause can become clear and you may need more??or different treatment. You may also need other evaluations, medicines, or tests. Home care Your healthcare provider may prescribe medicine for pain, symptoms, or an infection. ??Follow the healthcare provider's instructions for taking these medicines. General care ??? Rest as much as you can until your next exam. No strenuous activities. ??? Try to not do anything that may have caused your symptoms. This might be not taking any medicines unless otherwise directed by your healthcare provider. It might be not eating certain foods or doing certain activities. ??? Find positions that ease discomfort. A small pillow placed on your belly may help relieve pain. ??? Something warm on your belly such as a heating pad may help, but be careful not to burn yourself. Diet ??? Don???t??force yourself to eat, especially if having cramps, vomiting, or diarrhea. ??? Water is important so you don't get dehydrated. Soup may also be good. Sports drinks may also help, especially if they are not too acidic. Don't drink sugary drinks as this can make things worse. Take liquids in small amounts. Don???t??guzzle them. ??? Caffeine sometimes makes the pain and cramping worse. ??? Don???t take??dairy products if you have vomiting or diarrhea. ??? Don't eat large amounts at a time. Eat several small meals during the day instead of 2 or 3 larger meals. Wait a few minutesbetween bites. ??? Eat a diet low in fiber (called a low-residue diet). Foods allowed include refined breads, white rice, fruit and vegetable juices without pulp, tender meats. These foods will pass more easily through the intestine. ??? Don???t have??whole-grain foods, whole fruits and vegetables,meats, seeds and nuts, fried or fatty foods, dairy, alcohol and spicy foods until your symptoms go away. ?? Follow-up care Follow up with your healthcare provider, or as advised, if your pain does not begin to improve in the next 24 hours. ?? Call 911 Call?? 911 if any of these occur: ??? Trouble breathing ??? Confusion ??? Fainting or loss of consciousness ??? Rapid heart rate ??? Seizure ?? When to seek medical advice Call your healthcare provider right away if any of these occur: ??? Pain gets worse or moves to theright lower abdomen ??? New or worsening vomiting or diarrhea ??? Swelling of the abdomen ??? Unable to pass stool for more than??3 days ??? Fever of 100.4??F (38??C) or higher, or as directed by your healthcare provider ??? Blood in vomit or bowel movements (dark red or black color) ??? Yellow color of eyes and skin (jaundice) ??? Weakness, dizziness ??? Chest, arm, back, neck, or jaw pain ??? Can't keep down medicines, liquids, or water because of too much vomiting ??? If you have a vagina: unexpected vaginal bleeding or missed period ?? Last Reviewed Date: 2020 ?? [id number] [employer]. All rights reserved. This information is not intended as a substitute for professional medical care. Always follow your healthcare professional's instructions. ?? Patient Care team information Care Team Personnel Name: Gayatri Crowley RN Position: [facility] AMB Nurse Member Role: Primary Care Nurse Name: Dorie Lu RN Position: [facility] RN Member Role: Primary Care Nurse Name: Not on Staff, PCP Position: [facility] Physician (General Medicine) Member Role: PCP Name: Geoff Mckeon MD Position: [facility] Renal MD Member Role: Lifetime Consulting Physician Address: Address: [address] [place] [address] [address] [facility], [place] [address]- Name: Judy Anderson NP Position: [facility] Associate Professional Member Role: ED Physician Biomass Boiler Operator Address: Address: [address] [place] [address] Name: Yonny Arias Position: [facility] ED TA NEGIN Name: Tere Flores RN Position: [facility] ED RN W/OE and Tasks Member Role: Patient Care Provider Name: Siobhan Dexter DO Position: [facility] Resident Member Role: Admitting Physician Address: Address: [address] [place] [address] Emergency Medicine [address]
== END 2024-01-07 11:30 | disposition home or self-care (01) ==
LOC: HO.HWS 10:57
PROVIDERS: PCP Registered Nurse; Visit Provider Obstetrics & Gynecology
DX: R93.5 Abnormal findings on diagnostic imaging of other abdominal regions, including retroperitoneum (principal)
CPT/HCPCS: 99213

== ENCOUNTER → 2024-01-07 10:57 | Outpatient (BNVA) | payer MEDICAID, SELFPAY | PROVIDERS: PCP Registered Nurse; Visit Provider Obstetrics & Gynecology | DX: R93.5 Abnormal findings on diagnostic imaging of other abdominal regions, including retroperitoneum (principal) | CPT/HCPCS: 99212 ==

== ENCOUNTER 2024-01-11 07:21 | Day surgery (SDC) | payer MEDICAID, SELFPAY ==
[2024-01-11 08:04] VITALS: BP 133/84; PULSE 75; RESP 16; TEMP 36.3; O2SAT 98; BMI 32.2
[2024-01-11 08:10] LABS: Glucose, Whole Blood 122 mg/dL (60-115)
[2024-01-11 08:12] LABS: UPreg QC Valid YES; Urine Pregnancy NEGATIVE (NEGATIVE)
--- NOTE | 2024-01-11 08:27 | P.CONAN_ITS ---
HPI - Anesthesia Eval Consult details Narrative: 58 yo female patient for D&C, Hysteroscopy, possible PMFSH Active Problems Active Problems: All Active Problems Abnormal ultrasound of endometrium (Acute) Postmenopausal bleeding (Acute) Pelvic pain (Acute) Stress incontinence (Acute) Hyperplastic polyp of ascending colon (Acute) Hemorrhoids (Acute) Choledocholithiasis with acute cholecystitis (Acute) UTI (urinary tract infection) (Acute) Elevated LFTs (Acute) Positive hepatitis C antibody test (Acute) Gallbladder & bile duct stone, acute cholecystitis and obstruction (Acute) Encounter for screening colonoscopy (Acute) Tubular adenoma (Acute) HCV (hepatitis C virus) (Acute) Anemia (Acute) Poor historian (Acute) Urinary incontinence (Acute) Hyperglycemia (Acute) Past Medical History Medical History Hepatitis C Elevated cholesterol Diabetes Urinary incontinence Hyperglycemia Family History Family History Unknown No family history of colorectal cancer Family history of problems with anesthesia: No Surgical History Surgical History Hx of colonoscopy History of cholecystectomy History of tubal ligation History of Problems with Anesthesia: No Social History Social History Household Members: Spouse Housing: House Are you a primary grounds caretaker to a significant other at home: No Do you presently have visiting nurse or other home services: No Alcohol intake: unknown Patient Tobacco Use Status: Current everyday Tobacco user Tobacco use type: Cigarette Cigarettes Per Day: 7 Years Smoked: 45 Smoked in Last 30 Days: No Second Hand Smoke Exposure: Yes Use of substances other than those prescribed or required for medical reasons: No Have you been hit, kicked, punched, or otherwise hurt by someone within the past year? If so, by whom?: No Are you DNR?: No Advance Directives: No Advance Directives Information Provided: Yes ( Lopez oCle, per patient) Advance Directives on File: No Recently lost weight without trying: No How much weight loss: Not applicable Eating poorly because of decreased appetite: No Nutrition screen score: 0 Nutrition Risks: No Nutritional Risk Patient : No : No Poor oral hygiene: Yes (full upper and lower denture) service: No Current occupational status: employed Current occupation: [employer] Allergies Allergy/AdvReac Type Severity Reaction Status Date / Time No Known Allergies Allergy Verified 01/11/24 08:02 Home Medications ?Medication ?Instructions ?Recorded ?Confirmed ?Last Taken ?Type cholecalciferol (vitamin D3) 50 50 mcg PO DAILY 06/02/20 01/11/24 Unknown History mcg (2,000 unit) capsule alcohol swabs (Alcohol Prep Pads) 1 pad topical QID 11/08/20 01/11/24 Unknown History blood-glucose meter (FreeStyle #1 ea 11/08/20 01/11/24 Unknown History Lite Meter kit) lancets 28 gauge (FreeStyle #100 ea 11/08/20 01/11/24 Unknown History Lancets) blood sugar diagnostic (FreeStyle 01/04/21 01/11/24 Unknown History Lite Strips) atorvastatin 20 mg tablet 20 mg PO DAILY 08/02/21 01/11/24 Unknown History metformin 1,000 mg tablet,extended 1,000 mg PO BID 08/02/21 01/11/24 01/10/24 History release 24hr (osmotic) triamcinolone acetonide 0.5 % 1 appl topical DAILY PRN Skin 09/26/21 01/11/24 Unknown History topical ointment Irritation ibuprofen 600 mg tablet 600 mg PO Q8H PRN mild pain 09/26/22 01/11/24 01/09/24 History Exam Height,Weight and Vital Signs: Height 5 ft Weight 74.752 kg Last Vital Signs Temp 97.4 F 01/11/24 08:04 Pulse 75 01/11/24 08:04 Resp 16 01/11/24 08:04 BP 133/84 01/11/24 08:04 Pulse Ox 98 01/11/24 08:04 O2 Del Method Room Air 01/11/24 08:04 Pertinent Lab Results Pertinent Lab Results: Laboratory Tests 01/11/24 01/11/24 08:00 08:06 POC Glucose 122 H Urine Test NEGATIVE Airway Mallampati Class: II TM Dist: >3cm Neck ROM: Full Loose/Missing/Broken Teeth: Yes (Edentulous) Heart: RRR Lungs: CTAB Assessment and Plan Assessment Anesthesia Assessment: Anesthesia Plan Discussed and Chart Reviewed Final Anesthetic Review Family History of Problems with Anesthesia: No History of Problems with Anesthesia: No NPO: Yes ASA Class: III Final Preanesthetic Review: No Changes in Pt Med Stat, Meds/Allgs Chart Reviewed, Consent Obtained/Reviewed and Anes Risks/Benef Reviewed Patient Risk: Intermediate Procedure Risk: Low Assessment/Block/Sedation in SS: Assess/Block/Sedation-SS Anesthetic Plan Anesthetic Plan: GA Disposition: Standard PACU
[2024-01-11] MEDS: Lactated Ringers 1,000 ML 100 ML IVCONT (08:56)
--- NOTE | 2024-01-11 09:11 | MHC.SHP ---
Pre-Procedural Eval Section A - 24 Hr Update-Section A only Date of Service: 01/11/24 The patient is an INPATIENT: No Changes since office visit: No Cold of Flu in the past 2 weeks, No New Medical Problems, No Changes in Medication and No Patient answered all questions The patient has been examined within 24 hours of the surgical procedure. The History & Physical has been completed within 30 days and I have reviewed it.: Yes Section B - Complete if H&P > 30 days Chief Complaint: Abnormal findings on diagnostic imaging of other Allergies: Allergies Allergy/AdvReac Type Severity Reaction Status Date / Time No Known Allergies Allergy Verified 01/11/24 08:02 Plan Diagnosis/Plan: Unchanged I have reviewed the history and physical and performed a pertinent physical examination on my patient. No changes have occurred unless specified. Time Spent With Patient Time: Total time managing care of this patient today ____ minutes.
--- NOTE | 2024-01-11 09:40 | P.BOP_ITS ---
Brief Operative Note Date of Service: 01/11/24 Pre-op diagnosis: Post menopausal bleeding, abnormal endometrium by ultrasound Post-op diagnosis: same (Endometrial polyp) Procedure: Hysteroscopy D&C, Polypectomy Surgeon: Tee Murguia MD Anesthesia: GLMA Was an Digital Learning Platforms Manager used for this Procedure?: No Estimated blood loss (mL): 0 Pathology: other (Endometrial Scrapping. Polyp) Condition: stable Disposition: PACU
--- NOTE | 2024-01-11 09:40 | W.PM.OPN ---
Operative Note Operative Note Date of Service: 01/11/24 Narrative: Preop Diagnosis: Postmenopausal bleeding, abnormal endometrium by US Operation: Diagnostic Hysteroscopy, Dilataion & Curettage and polypectomy Post Op Diagnosis: Endometrial Polyp QBL: Minimal Anesthesia: GLMA Surgeon: Tee Murguia MD Regulatory Affairs Analyst: None Complication: None Pathology: Endometrial Scrapings, Endometrial polyp Procedure: The patient was put in the dorsal lithotomy position, scrubbed, and draped in the usual manner. A sterile speculum was inserted in the patient's vagina. The anterior lip of the cervix was grasped with a single tooth tenaculum. The cervix was dilated up to 5 mm, then the scope was inserted in the patient's uterus. Inspection revealed endometrial polyp. The Myosure Reach device was used; it was introduced through the operative channel and polypectomy done with no complications. The scope was then taken out from the uterine cavity, sharp curettings was carried on with minimal to moderate amount of tissues retrieved. At the end of the procedure, all instruments were taken out of the patient uterine and vaginal cavity. The single tooth tenaculum was removed and homeostasis was assured using pressure,. The patient tolerated the procedure well and was transferred to the PACU in a stable condition.
[2024-01-11 09:48] VITALS: BP 165/82; PULSE 60; RESP 12; TEMP 36.1; O2SAT 97
[2024-01-11 09:53] VITALS: BP 157/82; PULSE 59; RESP 12; TEMP 36.1; O2SAT 97
[2024-01-11 09:58] VITALS: BP 160/84; PULSE 67; RESP 12; TEMP 36.1; O2SAT 97
[2024-01-11 10:03] VITALS: BP 163/86; PULSE 66; RESP 12; TEMP 36.1; O2SAT 96
[2024-01-11 10:18] VITALS: BP 154/84; PULSE 58; RESP 12; TEMP 36.1; O2SAT 96
== END 2024-01-11 10:55 | disposition home or self-care (01) ==
PROVIDERS: PCP Registered Nurse; Visit Provider Obstetrics & Gynecology
PROC: 0UDB8ZZ Extraction of Endometrium, Via Natural or Artificial Opening Endoscopic (ICD-10-PCS; CPT 58558; principal; 2024-01-11 09:30)
DX: N95.0 Postmenopausal bleeding (principal); N84.0 Polyp of corpus uteri; B19.20 Unspecified viral hepatitis C without hepatic coma; E78.00 Pure hypercholesterolemia, unspecified; E11.9 Type 2 diabetes mellitus without complications; R32 Unspecified urinary incontinence; F17.210 Nicotine dependence, cigarettes, uncomplicated; Z79.84 Long term (current) use of oral hypoglycemic drugs; Z79.899 Other long term (current) drug therapy; Z98.51 Tubal ligation status; Z90.49 Acquired absence of other specified parts of digestive tract
CPT/HCPCS: 58558; 81025; 82947; 88305; J0131; J1100; J1885; J2003; J2405; J2704; J3010

== ENCOUNTER → 2024-01-11 07:21 | Outpatient (BNV) | payer MEDICAID, SELFPAY | PROVIDERS: PCP Registered Nurse; Visit Provider Obstetrics & Gynecology | DX: N84.0 Polyp of corpus uteri (principal) | CPT/HCPCS: 58558 ==

== ENCOUNTER 2024-01-15 12:35 | Outpatient (REF) | payer MEDICAID, SELFPAY ==
--- NOTE | 2024-01-15 13:31 | MHC.AU.HA2 ---
Hearing Instrument Fitting- Adult- Binaural Date of Visit: 01/15/24 Hearing Instruments Dispensed: Right Ear: Make, Model, Color, Serial Number: Beverly CROS L-R SN: [id number] Color: Silver Fisher Cut Roll Machine Operator Repair Warranty: 02/01/2027 Cut Roll Machine Operator Loss and Damage Warranty: 02/01/2027 [facility] Service Plan: 01/14/2025 Battery Size: Rechargeable Track Worker/Slim Tube: 1C Earmold/Dome/CShell/SlimTip: Small open dome (no retention tail) Type of Wax Guard: CeruShield Left Ear: Make, Model, Color, Serial Number: Beverly Audeo L70-[id number] SN: [id number] Color: Silver Fisher Cut Roll Machine Operator Repair Warranty: 02/01/2027 Cut Roll Machine Operator Loss and Damage Warranty: 02/01/2027 [facility] Service Plan: 01/14/2025 Battery Size: Rechargeable Track Worker/Slim Tube: 1S Earmold/Dome/CShell/SlimTip: Small open dome (no retention tail) Type of Wax Guard: CeruShield Accessories/Assistive Technology: Heavy Coil Winder Ease SN: [id number] Summary of Fitting: Accompanied by , Lopez. Ran feedback analyzer and real ear measures. Noted swishing of jacket and hair over microphones but otherwise comfortable. Discussed care, use, and rechargeability including manually turning on/off, VC use, and changing domes and wax guards. Reexplained how CROS works and importance of daily, consistent use. Paired to cell phone, will download and pair to [employer] raymond herself at home. Recommendations: A hearing instrument follow-up was scheduled. 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
== END 2024-01-15 12:36 | disposition home or self-care (01) ==
LOC: HO.HAP 12:35
PROVIDERS: Visit Provider Otolaryngology
DX: Z46.1 Encounter for fitting and adjustment of hearing aid (principal); H90.41 Sensorineural hearing loss, unilateral, right ear, with unrestricted hearing on the contralateral side
CPT/HCPCS: V5011; V5020; V5221; V5240

== ENCOUNTER 2024-01-25 09:24 | Outpatient (AMB) | payer MEDICAID, SELFPAY ==
--- NOTE | 2024-01-25 09:35 | A.OFFVIS_ITS ---
Vital Signs 01/25/24 09:37 Height 5 ft Weight 160 lb BMI 31.2 Intake Visit Reasons: post op Allergies No Known Allergies Allergy (Verified 01/11/24 08:02) HPI Comments Details: The patient is presenting post hysteroscopy D&C no complaints minimal vaginal bleeding no feverishness chills or abdominal pain. The pathology showed the following: A. Endometrium, polypectomy: Endometrial polyp; no atypia identified. B. Endometrium, curettage: - Superficial fragments of benign endometrium, blood and mucoinflammatory material. - Rare squamous and endocervical epithelium within normal limits. - No atypia identified [facility] Medical History Hepatitis C Elevated cholesterol Diabetes Urinary incontinence Hyperglycemia Surgical History Hx of colonoscopy History of cholecystectomy History of tubal ligation Family History Unknown No family history of colorectal cancer Social History Household Members: Spouse Housing: House Are you a primary professional healthcare representative to a significant other at home: No Do you presently have visiting nurse or other home services: No Alcohol intake: unknown Patient Tobacco Use Status: Current everyday Tobacco user Tobacco use type: Cigarette Cigarettes Per Day: 7 Years Smoked: 45 Second Hand Smoke Exposure: Yes service: No Current occupational status: employed Current occupation: [employer] Review of Systems Const All systems reviewed & are unremarkable except as noted in HPI and below Reports as per HPI and Reports no additional complaints GI Reports no additional complaints Reports no additional complaints Physical Exam Vital Signs: BMI result Body Mass Index 31.2 Assessment & Plan Assessment & Plan (1) Abnormal ultrasound of endometrium: Comment: Endometrial polyp status post hysteroscopic polypectomy Code(s): R93.5 - Abnormal findings on diagnostic imaging of other abdominal regions, including retroperitoneum Category: Medical Plan: Discussed with the patient the intraoperative finding showing endometrial polyp, the results the pathology showing benign endometrial polyp and endometrium. Sensitivity, specificity, false-positive false-negative rate of D&C to rule out endometrial pathology including endometrial hyperplasia or malignancy were discussed with the patient. Instructions given to patient to call in case of any vaginal bleeding. All questions answered, the patient verbalized understanding Coding Level of Care Code Est Pt Level 3 (07372) Diagnoses Abnormal ultrasound of endometrium R93.5
[2024-01-25 09:37] VITALS: BMI 31.2
== END 2024-01-25 09:55 | disposition home or self-care (01) ==
LOC: HO.HWS 09:24
PROVIDERS: PCP Registered Nurse; Visit Provider Obstetrics & Gynecology
DX: R93.5 Abnormal findings on diagnostic imaging of other abdominal regions, including retroperitoneum (principal)
CPT/HCPCS: 99213

== ENCOUNTER → 2024-01-25 09:24 | Outpatient (BNVA) | payer MEDICAID, SELFPAY | PROVIDERS: PCP Registered Nurse; Visit Provider Obstetrics & Gynecology | DX: Z48.816 Encounter for surgical aftercare following surgery on the genitourinary system (principal); R93.5 Abnormal findings on diagnostic imaging of other abdominal regions, including retroperitoneum; Z98.890 Other specified postprocedural states | CPT/HCPCS: 99212 ==

== ENCOUNTER 2024-06-13 16:14 | Emergency (ER) | payer MEDICAID, SELFPAY ==
[2024-06-13 16:22] VITALS: BP 138/68; BP 140/95; PULSE 76; PULSE 92; RESP 20; TEMP 36.9; O2SAT 98; O2SAT 99; BMI 29.0
--- NOTE | 2024-06-13 16:27 | ED_ITS ---
HPI - General Adult General Chief complaint: Nausea/Vomiting/Diarrhea Stated complaint: vomitting/ diarrhea hx diabetes Time Seen by Provider: 06/13/24 16:27 History of Present Illness ED Provider: Karlos GAY narrative: The patient is a 58-year-old woman who says that she was feeling well earlier today. At around 15:00 however, while at work, she became acutely nauseated and had multiple episodes of vomiting and she also had diarrhea. No significant associated abdominal pain. She felt very sweaty. She does not know if she had a fever. No chest pain or shortness of breath. There was no blood in her stool. The patient has a history of a cholecystectomy. Related Data Home Medications ?Medication ?Instructions ?Recorded ?Confirmed cholecalciferol (vitamin D3) 50 50 mcg PO DAILY 06/02/20 01/11/24 mcg (2,000 unit) capsule alcohol swabs (Alcohol Prep Pads) 1 pad topical QID 11/08/20 01/11/24 blood-glucose meter (FreeStyle #1 ea 11/08/20 01/11/24 Lite Meter kit) lancets 28 gauge (FreeStyle #100 ea 11/08/20 01/11/24 Lancets) blood sugar diagnostic (FreeStyle 01/04/21 01/11/24 Lite Strips) atorvastatin 20 mg tablet 20 mg PO DAILY 08/02/21 01/11/24 metformin 1,000 mg tablet,extended 1,000 mg PO BID 08/02/21 01/11/24 release 24hr (osmotic) triamcinolone acetonide 0.5 % 1 appl topical DAILY PRN Skin 09/26/21 01/11/24 topical ointment Irritation ibuprofen 600 mg tablet 600 mg PO Q8H PRN mild pain 09/26/22 01/11/24 Previous Rx's ?Medication ?Instructions ?Recorded hydrocortisone 2.5 % topical cream 1 appl MO BID PRN hemorrhoids #30 08/02/21 with perineal applicator grams (Proctozone-HC) mirabegron 25 mg tablet,extended 50 mg (2 x 25 mg) PO DAILY 30 days 09/26/22 release 24 hr (Myrbetriq) #60 tabs Allergies Allergy/AdvReac Type Severity Reaction Status Date / Time No Known Allergies Allergy Verified 06/13/24 16:23 Review of Systems 2 Review of Systems: Yes all other systems are reviewed and are negative FOR[facility]LY [facility], [facility] Past Medical History Medical History Hepatitis C Elevated cholesterol Diabetes Urinary incontinence Hyperglycemia Surgical History Hx of colonoscopy History of cholecystectomy History of tubal ligation Family History Family History Unknown No family history of colorectal cancer Social History Social History Household Members: Spouse Housing: House Are you a primary healthcare educator to a significant other at home: No Do you presently have visiting nurse or other home services: No Alcohol intake: unknown Patient Tobacco Use Status: Current everyday Tobacco user Tobacco use type: Cigarette Cigarettes Per Day: 7 Years Smoked: 45 Smoked in Last 30 Days: Yes Second Hand Smoke Exposure: Yes Use of substances other than those prescribed or required for medical reasons: No Advance Directives: No Advance Directives Information Provided: No Do you have a plan to hurt others: No Plan Patient : No service: No Current occupational status: employed Current occupation: [employer] Physical Exam ED Vital Signs: Vital Signs - 24 hr 06/13/24 16:22 06/13/24 18:00 06/13/24 20:00 Temperature 98.5 F 97.3 F 98.3 F Pulse Rate 92 62 61 Respiratory Rate 20 16 16 Blood Pressure 140/95 H 121/70 95/51 L Pulse Oximetry 99 95 96 Oxygen Delivery Method Room Air Room Air Room Air 06/13/24 20:53 Temperature 98.3 F Pulse Rate 61 Respiratory Rate 16 Blood Pressure 95/51 L Pulse Oximetry 96 Oxygen Delivery Method Room Air BMI result Body Mass Index 29.0 Const Other: The patient is awake, alert, pleasant, cooperative. She does not appear obviously ill. HENMT Other: Face is symmetrical, mucous membranes moist Eyes General: appearance normal, both eyes and all related structures Neck Neck: Yes normal visual inspection and Yes full ROM Resp Effort & Inspection: normal respiratory effort Auscultation: clear to auscultation bilaterally Cardio Rate: regular rate Rhythm: regular rhythm Heart sounds: S1 normal heart sound present and S2 normal heart sound present GI Other: The abdomen seems soft. It does not obviously distended. It does not seem tender. Skin Other: Skin is dry and unremarkable General skin exam: no rashes or lesions noted Neuro Other: The patient is awake and alert, pleasant cooperative, normal mental status, cranial nerves are grossly intact, she moves her extremities symmetrically. She seems grossly neurologically intact Extrem Other: No peripheral edema Medications Administered Discontinued Medications Generic Name Dose Route Start Last Admin Trade Name Kimberly PRN Reason Stop Dose Admin Sodium Chloride 1,000 mls @ 999 mls/hr 06/13/24 16:45 06/13/24 19:24 Ns IV 06/13/24 17:45 Infused .Q1H1M UNIQUE Infusion Ondansetron HCl 4 mg 06/13/24 16:42 06/13/24 16:47 Ondansetron Hcl 4 Mg/2 Ml Vial IVPUSH 06/13/24 16:43 4 mg ONCE ONE Administration Medical Decision Making Medical Decision Making [facility] Narrative: The patient is a 58-year-old woman with a history of a cholecystectomy he developed acute onset vomiting and diarrhea this afternoon. She felt quite unwell and was very sweaty for a while. she was at work. She looked unwell and an ambulance was called and she was brought to the hospital. By the time she got here she is feeling somewhat better. She has some ongoing nausea. She has no abdominal pain. No sense of abdominal distension. She was well earlier today before the symptoms began. She has never had an episode like this before. The patient's abdomen seemed benign on exam. She was given IV fluids and antiemetics. She was observed. She fell asleep for a while. She was feeling much better after sleeping. She tolerated oral intake. I suspect that she had some kind of acute food poisoning which seems to have run its course fairly rapidly. She felt well enough for discharge. Lab Data 06/13/24 16:40 06/13/24 18:03 Labs: Lab Results 06/13/24 06/13/24 Range/Units 16:40 18:03 WBC 15.4 H (4.8-10.8) X10*3/uL RBC 5.56 H (4.20-5.50) X10*6/uL Hgb 15.7 (12.0-16.0) g/dl Hct 45.9 (37.0-47.0) % MCV 82.6 (80.0-98.0) fL MCH 28.2 (27.0-33.0) pg MCHC 34.2 (31.0-35.0) g/dl RDW 14.3 (11.0-16.0) % Plt Count 199 (160-400) X10*3/uL MPV 10.2 (9.4-12.3) fL Immature Gran % (Auto) 1.4 H (0.0-0.4) % Neut % (Auto) 73.8 H (45-73) % Lymph % (Auto) 18.2 L (20-40) % Frederick % (Auto) 5.5 (2-11) % Eos % (Auto) 0.5 (0-4) % Baso % (Auto) 0.6 (0-2) % Lymph # (Auto) 2.8 (1.2-4.9) X10*3/uL Frederick # (Auto) 0.8 (0.1-1.2) X10*3/uL Eos # (Auto) 0.1 (0.0-0.4) X10*3/uL Baso # (Auto) 0.1 (0.0-0.2) X10*3/uL Abs Immat Gran (auto) 0.22 H (0.00-0.03) X10*3/uL Absolute Neuts (auto) 11.4 H (2.0-8.3) x10*3/uL Absolute Nucleated RBC 0.000 (0.0-0.012) X10*3/uL Nucleated RBC % (auto) 0.0 (0.0-0.2) /100WBC Sodium 141 (135-145) mmol/L Potassium 3.6 (3.3-5.1) mmol/L Chloride 112 H (96-108) mmol/L Carbon Dioxide 20 L (22-29) mmol/L Anion Gap 13 (12-20) BUN 12 (9-16) mg/dL Creatinine 0.65 (0.5-1.4) mg/dL Estim Creat Clear Calc 82.7 Estimated GFR > 60 Random Glucose 110 (60-115) mg/dL Calcium 9.1 D (8.4-10.2) mg/dL Total Bilirubin 0.5 (0.0-1.0) mg/dL AST 25 (5-31) U/L ALT 24 (0-31) U/L Alkaline Phosphatase 69 (39-117) U/L C-Reactive Protein < 0.10 (< or = 0.50) mg/dL Total Protein 6.9 (6.5-8.0) g/dL Albumin 4.1 (3.5-5.0) g/dL Lipase 13 (8-78) U/L Discharge Plan Discharge Clinical Impression: Vomiting and diarrhea Patient Disposition: Home, Self-Care Instructions: Acute Nausea and Vomiting (ED) Additional Instructions: I think you had some kind of an acute stomach bug today. You seem to have gotten considerably better. I would recommend eating a light diet tonight. Take clear fluids and simple foods like toast or well cooked rice. Please plan on following up with your regular doctor. Emergency room if significantly worse. Prescriptions: No Action cholecalciferol (vitamin D3) 50 mcg (2,000 unit) capsule 50 mcg PO DAILY (DME) FreeStyle Lite Strips Strip 1 strip MISCELLANEOUS BID (DME) lancets [FreeStyle Lancets] 28 gauge misc See Rx Instructions topical DAILY Qty: 100 Rx Instructions: As directed alcohol swabs [Alcohol Prep Pads] Pads, Medicated 1 pad topical QID (DME) blood-glucose meter [FreeStyle Lite Meter] Kit See Rx Instructions .ROUTE TID Qty: 1 Rx Instructions: As directed triamcinolone acetonide 0.5 % ointment 1 appl topical DAILY PRN (Reason: Skin Irritation) atorvastatin 20 mg tablet 20 mg PO DAILY metformin 1,000 mg tablet extended release 24hr 1,000 mg PO BID hydrocortisone [Proctozone-HC] 2.5 % cream with perineal applicator 1 appl MO BID PRN (Reason: hemorrhoids) Qty: 30 3RF Rx Instructions: apply MO BID prn ibuprofen 600 mg tablet 600 mg PO Q8H PRN (Reason: mild pain) Myrbetriq 25 mg tablet extended release 24 hr 50 mg PO DAILY 30 Days Qty: 60 1RF Stand Alone Forms: Work/School Release Interventions: ED Discharge Assessment Last Done: 06/13/24 20:53 Discharge Date/Time: 06/13/24 21:01 Print Language: Belizean
--- NOTE | 2024-06-13 16:40 | MHC.EDTECH ---
Patient inc stool cleaned and changed over
--- NOTE | 2024-06-13 16:44 | ECG_ITS ---
Test Reason : NAUSEA Blood Pressure : */* mmHG Vent. Rate : 64 BPM Atrial Rate : 64 BPM P-R Int : 148 ms QRS Dur : 146 ms QT Int : 454 ms P-R-T Axes : 60 68 17 degrees QTcB Int : 468 ms Normal sinus rhythm Right bundle branch block Abnormal ECG When compared with ECG of 13-Feb-2020 19:43, Right bundle branch block is now Present Referred By: João Everett Electronically Signed By: FAINA VILLELA
[2024-06-13 16:46] LABS: MANUAL DIFF FLAG NO
[2024-06-13] MEDS: 0.9 % Sodium Chloride 1,000 ML 999 ML IV (16:47)
[2024-06-13] MEDS: ondansetron HCL 4 MG/2 ML VIAL IVPUSH (16:47)
--- NOTE | 2024-06-13 16:51 | PC.NURSE ---
patient a&ox3, iv inserted, labs drawn, ekg being performed, pt medicated per order, call lopez within reach, plan of care ongoing
[2024-06-13 18:00] VITALS: BP 121/70; PULSE 62; RESP 16; TEMP 36.3; O2SAT 95
[2024-06-13 18:23] LABS: Alanine Aminotransferase 24 U/L (0-31); Albumin Level 4.1 g/dL (3.5-5.0); Alkaline Phosphatase 69 U/L (39-117); Anion Gap 13 (12-20); Aspartate Amino Transferase 25 U/L (5-31); Bilirubin Total 0.5 mg/dL (0.0-1.0); Blood Urea Nitrogen 12 mg/dL (9-16); C Reactive Protein < 0.10 mg/dL (< or = 0.50); Calcium 9.1 mg/dL (8.4-10.2); Carbon Dioxide 20 mmol/L (22-29); Chloride 112 mmol/L (96-108); Creatinine Clr Calc Pharmacy 82.7; Estimated Glomerular Filt Rate > 60; Glucose Random 110 mg/dL (60-115); Lipase 13 U/L (8-78); Potassium 3.6 mmol/L (3.3-5.1); Sodium 141 mmol/L (135-145); Total Protein 6.9 g/dL (6.5-8.0)
[2024-06-13 18:44] LABS: Basophils Absolute Auto 0.1 X10*3/uL (0.0-0.2); Basophils Percent Auto 0.6 % (0-2); Eosinophils Absolute Auto 0.1 X10*3/uL (0.0-0.4); Eosinophils Percent Auto 0.5 % (0-4); Hematocrit 45.9 % (37.0-47.0); Hemoglobin 15.7 g/dl (12.0-16.0); Imm Gran Abs Auto 0.22 X10*3/uL (0.00-0.03); Imm Gran Pct Auto 1.4 % (0.0-0.4); Lymphocytes Absolute Auto 2.8 X10*3/uL (1.2-4.9); Lymphocytes Percent Auto 18.2 % (20-40); Mean Corpuscular HGB Conc 34.2 g/dl (31.0-35.0); Mean Corpuscular Hemoglobin 28.2 pg (27.0-33.0); Mean Corpuscular Volume 82.6 fL (80.0-98.0); Mean Platelet Volume 10.2 fL (9.4-12.3); Monocytes Absolute Auto 0.8 X10*3/uL (0.1-1.2); Monocytes Percent Auto 5.5 % (2-11); Neutrophils Absolute Auto 11.4 x10*3/uL (2.0-8.3); Neutrophils Percent Auto 73.8 % (45-73); Platelet Count 199 X10*3/uL (160-400); Red Blood Count 5.56 X10*6/uL (4.20-5.50); Red Cell Distribution Width 14.3 % (11.0-16.0); White Blood Count 15.4 X10*3/uL (4.8-10.8)
--- NOTE | 2024-06-13 19:43 | PC.NURSE ---
pt resting comfortably at this time, no apparent distress noted. call john w/in reach
[2024-06-13 20:00] VITALS: BP 95/51; PULSE 61; RESP 16; TEMP 36.8; O2SAT 96
[2024-06-13 20:53] VITALS: BP 95/51; PULSE 61; RESP 16; TEMP 36.8; O2SAT 96
--- NOTE | 2024-06-13 21:01 | PC.NURSE ---
BP is soft, pt denies dizziness or lightheaded upon standing.
== END 2024-06-13 21:01 | disposition home or self-care (01) ==
PROVIDERS: Emergency Provider Emergency Medicine; PCP Registered Nurse
DX: R11.2 Nausea with vomiting, unspecified (principal); R19.7 Diarrhea, unspecified; E11.9 Type 2 diabetes mellitus without complications; E78.5 Hyperlipidemia, unspecified; B19.20 Unspecified viral hepatitis C without hepatic coma; F17.210 Nicotine dependence, cigarettes, uncomplicated; Z79.02 Long term (current) use of antithrombotics/antiplatelets; Z79.84 Long term (current) use of oral hypoglycemic drugs; Z79.899 Other long term (current) drug therapy
CPT/HCPCS: 36415; 80053; 83690; 85025; 86140; 93005; 96361; 96374; 99284; 99285; J2405

== ENCOUNTER → 2024-06-13 16:44 | Outpatient (BNV) | payer MEDICAID, SELFPAY | PROVIDERS: Emergency Provider Emergency Medicine; PCP Registered Nurse; Visit Provider Internal Medicine | DX: I45.10 Unspecified right bundle-branch block (principal) | CPT/HCPCS: 93010 ==

== ENCOUNTER 2024-09-23 08:08 | Outpatient (REF) | payer MEDICAID, SELFPAY ==
--- OUTSIDE RECORDS SUMMARY | 2024-09-23 08:14 | XMS_ITS | Encounter Summary ---
Author Organization [employer] Address [address] [place] [address] Care Team Providers Care Upholstery Parts Sorter Name Role Phone Alycia Cooper Primary Care Provider [phone] Encounter Details Date Type Department Care Team ([facility] Contact Info) Description 09/27/2023 Orders Only [facility]S [address] [place], [place] [phone] Alycia Cooper FNP [address] [place], [place] [phone] Abnormal finding on imaging (Primary Dx) Social History Tobacco Use Types Packs/Day Years Used Date Smoking Tobacco: Every Day Cigarettes Smokeless Tobacco: Never Alcohol Use Standard Drinks/Week Comments Never 0 (1 standard drink = 0.6 oz pur e alcohol) Depression Answer Date Recorded Patient Health Questionnaire-9 Score 0 02/24/2022 Housing Stability Answer Date Recorded What is your housing situation today? I have xavi ruiz 05/28/[address] you li ve. Do you have problems with any of the following? None of the above 05/28/2023 Food Insecurity Answer Date Recorded Within the past 12 months, y ou worried that your food would run out before you got money to buy more: Never True 05/28/2023 Within the past 12 months,th e food you bought just didn't last and you didn't have enough money to get more: Never True 09/2023 Transportation Answer Date Recorded In the past 12 months, has l ack of transportation kept you from medical appts, meetings, work or from getting things needed for daily living? No 05/28/2023 Utilities Answer Date Recorded In the past 12 months, has t he electric, gas, oil or water company threatened to shut off services in your home? No 05/28/2023 Depression Answer Date Recorded Patient Health Questionnaire-2 Score 2 02/02/2023 Comments Unknown Sex and Gender Information Value Date Recorded Sex Assigned at Female 12/19/2021 10:37 AM EDT Legal Sex Female 10:37 AM EDT Gender Identity Female 12/19/2021 10:37 AM EDT Sexual Orientation Straight 12/19/2021 10 :37 AM EDT documented as of this encounter Plan of Treatment Upcoming Encounters Date Type Department Care Team (Late st Contact Info) Description 10/24/2024 10:00 AM EDT Office Visit [facility] MED & PEDS [address] [place], [place] [phone] Alycia Cooper FNP [address] [place], [place] [phone] documented as of this encounter Procedures Procedure Name Priority Date/Time Associated Diagnosis Comments XR CHEST 2 VIEWS Routine 12/05/2023 10:5 0 AM EDT Abnormal finding on imaging documented in this encounter Results * XR Chest 2 Views (12/05/2023 10:50 AM EDT) Anatomical Region Laterality Modality Chest Radiographic Justyna ging 12/05/2023 10:5 0 AM EDT Narrative 02/21/2024 8:[address] [address] XRay Report Signed Patient: Eva Power MR#: [id number] : 1965 Acct:[id number] Age/Sex: 58 / F ADM Date: 12/05/23 Loc: [facility] Attending Dr: Alycia BARRAGAN Ordering Physician: Alycia Cooper Date of Service: 12/05/23 Procedure(s): XR chest 2V Accession Number(s): [id number] cc: Phalen,Alycia METER AND SERVICE LINE INSPECTOR EXAMINATION: XR CHEST 3 VIEWS CLINICAL INFORMATION: Abnormal finding on imaging. Patient states follow up on possible mass visualized on previous imaging. COMPARISON: XR Chest 01/05/2021. Right shoulder radiograph dated 09/04/2023. TECHNIQUE: PA and lateral views of the chest were obtained. FINDINGS: No airspace consolidation. Findings on the prior radiograph represent a costochondral junction. No pleural effusion or pneumothorax. Stable cardiomediastinal silhouette. XR/XR chest 2V IMPRESSION: No acute cardiopulmonary findings. Findings on the prior radiograph represent a costochondral junction. Electronically signed by: Yoni Felder MD 02/21/2024 08:30 PM [facility] Dictated By: Yoni Felder MD Signed By: <Electronically signed by Yoni Felder MD in OV> 02/21/242029 DD/ 1050 TD/TT: 12/05/23 1102 Plant Operator Helper: Procedure Note Donotuseinterpreter, Image - 02/21/[address] [address] XRay Report Signed Patient: Fely Power#: [id number] : 1965Acct:[id number] Age/Sex: 58 / FADM Date: 12/05/23 Loc: [facility] Attending Dr: Alycia BARRAGAN Ordering Physician: Alycia Cooper Date of Service: 12/05/23 Procedure(s): XR chest 2V Accession Number(s): [id number] cc: Alycia Cooper EXAMINATION: XR CHEST 3 VIEWS CLINICAL INFORMATION: Abnormal finding on imaging. Patient states follow up on possible mass visualized on previous imaging. COMPARISON: XR Chest 01/05/2021. Right shoulder radiograph dated 09/04/2023. TECHNIQUE: PA and lateral views of the chest were obtained. FINDINGS: No airspace consolidation. Findings on the prior radiograph represent a costochondral junction. No pleural effusion or pneumothorax. Stable cardiomediastinal silhouette. XR/XR chest 2V IMPRESSION: No acute cardiopulmonary findings. Findings on the prior radiograph represent a costochondral junction. Electronically signed by: Yoni Felder MD 02/21/2024 08:30 PM EST Dictated By: Yoni Felder MD Signed By: <Electronically signed by Yoni Felder MD in OV> 02/21/242029 DD/ 1050 TD/TT: 12/05/23 1102 Plant Operator Helper: Alycia BARRAGAN IMG XR PROCEDURES Edited Resul t - Final documented in this encounter Visit Diagnoses Diagnosis Abnormal finding on imaging- Primary Other nonspecific (abnormal) findings on radiological and other examinations of body structure documented in this encounter Additional Health Concerns Assessment Noted Time PHQ-9 Depression Total Score: 0 02/24/19 23 2:32 PM EST documented as of this encounter Care Teams Upholstery Parts Sorter Relationship Specialty Start Date End Date Alycia Cooper FNP [address] [place] [id number] PCP - General Family Medicine 10/15/21 documented as of this encounter
--- OUTSIDE RECORDS SUMMARY | 2024-09-23 08:15 | XMS_ITS | Clinical Summary ---
Author Organization [address] [facility] Address [address] [place] [address] Phone Care Team Providers Care Gang Saw Operator Name Role Phone Alycia Cooper RN Primary Care Provider Social History Tobacco Use Types Packs/Day Years Used Date Smoking Tobacco: Never Assessed Comments Unknown Sex and Gender Information Value Date Recorded Sex Assigned at Not on file Legal Sex Female 9:08 PM EST Gender Identity Not on file Sexual Orientation Not on file Plan of Treatment Upcoming Encounters Date Type Department Care Team ([facility] Contact Info) Description 10/27/2024 2:00 PM EDT Consult Orthopedic Surgery [place] [phone] [phone] Shashank London DPM [address] [address] Health Maintenance Due Date Last Done Comments Breast Cancer Screening 1965 DTaP,Tdap,and Td Vaccines (1 - Tdap) 09/17/1986 Hepatitis B Vaccines (1 of 3 - 19+ 3-dose series) 09/17/1986 Cervical Cancer Screening: P ap Smear 09/17/1988 Pneumococcal Vaccine: 50+ Ye ars (1 of 1 - PCV) 09/17/2017 Zoster Vaccines (1 of 2) 09/17/2017 Colorectal Cancer Screening: Colonoscopy 03/16/2023 HIV Screening 03/16/2023 Hepatitis C Screening 03/16/2023 Social Influencers of Health Screening 03/16/2023 COVID-19 Vaccine (1 - 2023-2 5 season) 2023 Depression Screening 02/20/2024 Influenza Vaccine (#1) 2024 HIB Vaccines Aged Out No longer eligi ble based on patient's age to complete this topic HPV Vaccines Aged Out No longer eligi ble based on patient's age to complete this topic Hepatitis A Vaccines Aged Out No long er eligible based on patient's age to complete this topic IPV Vaccines Aged Out No longer eligi ble based on patient's age to complete this topic MMR Vaccines Aged Out No longer eligi ble based on patient's age to complete this topic Meningococcal ACWY Vaccine Aged Out N o longer eligible based on patient's age to complete this topic Meningococcal B Vaccine Aged Out No l onger eligible based on patient's age to complete this topic RSV Immunization Patients Un ysabel 20 months Aged Out No longer eligible b ased on patient's age to complete this topic Varicella Vaccines Aged Out No longer eligible based on patient's age to complete this topic Insurance MEDICAID - [place] Care Teams Gang Saw Operator Relationship Specialty Start Date End Date Alycia Cooper RN [address] [address] PCP - General 11/23/21
== END 2024-09-23 08:09 | disposition home or self-care (01) ==
LOC: HO.MAMMO 08:08
PROVIDERS: Visit Provider Registered Nurse
DX: Z12.31 Encounter for screening mammogram for malignant neoplasm of breast (principal)
CPT/HCPCS: 77063; 77067

== ENCOUNTER → 2024-09-23 08:15 | Outpatient (BNV) | payer MEDICAID, SELFPAY | PROVIDERS: Visit Provider Internal Medicine | DX: Z12.31 Encounter for screening mammogram for malignant neoplasm of breast (principal) | CPT/HCPCS: 77063; 77067 ==

== ENCOUNTER 2024-12-12 10:29 | Outpatient (AMB) | payer OTHER, SELFPAY ==
--- NOTE | 2024-12-12 08:11 | A.OFFVIS_ITS ---
Intake Visit Reasons: Current Smoker Allergies No Known Allergies Allergy (Verified 06/13/24 16:23) HPI HPI Current Smoker: Details: Initial visit for this 59yo smoker with a 30PYH. Patient started smoking at age 13 for 48yo years at 1/2-1ppd. Currently at 1 to 2 cigarettes a day. . Denies marijuana use. Denies second hand smoke exposure. Denies exposure to chemicals or substances like asbestos. . Reports family history of lung cancer. Father passed at 55. Denies personal history of cancers. Denies chest CT in last year. . Denies recent travel outside the [place]. Denies recent respiratory illness or recent hospitalization for respiratory issues. Denies testing positive for COVID. Admits receiving COVID Vaccine. . Denies fever, chills, new/worsening cough, hemoptysis, hoarseness or dysphagia. Denies significant chest pain, significant dyspnea or unintentional weight loss. Patient Lung Cancer Screening Questionnaire reviewed with patient by provider. . Shared Decision Making Completed. Patient meets criteria. Discussed in detail with patient, the risk vs benefit of LDCT screening. Patient consents to proceed with scan. Discussed smoking cessation. [facility] Medical History (Updated 12/12/24 @ 10:52 by Madyson Ordoñez PA-C) Nicotine dependence, cigarettes, uncomplicated Hyperplastic polyp of ascending colon HCV (hepatitis C virus) Tubular adenoma of colon Hepatitis C Elevated cholesterol Diabetes Urinary incontinence Hyperglycemia Surgical History (Updated 10/24/24 @ 11:06 by Madyson Ordoñez PA-C) History of ERCP History of colonoscopy History of cholecystectomy History of tubal ligation Family History (Updated 12/12/24 @ 10:53 by Madyson Ordoñez PA-C) Father Lung cancer Social History (Updated 12/12/24 @ 10:52 by Madyson Ordoñez PA-C) Household Members: Spouse Housing: House Are you a primary home care nurse to a significant other at home: No Do you presently have visiting nurse or other home services: No Alcohol intake: unknown Patient Tobacco Use Status: Current everyday Tobacco user Tobacco use type: Cigarette Cigarettes Per Day: 2 Years Smoked: (onset 13yo, 1/2-1ppd x 46yrs, now 1-2cig/day - 30pyh) Second Hand Smoke Exposure: Yes service: No Current occupational status: employed Current occupation: [employer] Assessment & Plan Assessment & Plan (1) Nicotine dependence, cigarettes, uncomplicated: Comment: (onset 13yo, 1/2-1ppd x 48yrs, now 1-2cig/day - 30pyh) Code(s): F17.210 - Nicotine dependence, cigarettes, uncomplicated Category: Medical Plan: - SDM visit completed today in office. - Patient meets criteria for LDCT for lung cancer screening purposes and is asymptomatic. - Smoking cessation counseling offered. Patients can always call [phone]. - Will arrange for a LDCT scan of the chest for screening purposes at [facility]. - Risks, benefits, and alternatives were discussed in detail and the patient agrees to proceed. - Risks discussed include but are not limited to: radiation exposure, anxiety during testing and while awaiting results, false negatives, false positives and possibility of additional intervention such as further imaging or surgical procedures for benign disease. - Benefits are obviously detection of lung cancer at an early stage which can lead to improved outcomes. - Discussed the importance of screening program compliance with adherence to yearly LDCT scan as scheduled - or sooner interval scans for personalized screening regimen. - Discussed follow up plan. Our office will send a letter discussing results and if needed set up phone call and office visit based on CT findings. - Patient educated on results categorization and the management decisions for suspicious findings potentially found on the screening LDCT scan. Any patient with a Lung RADS score of 3 or 4 will be reviewed by a multidisciplinary team at [facility] to form a plan of action in regards to scan findings. - If further work up is warranted for a suspicious lung finding this will be followed by the Lung Cancer Screening program in conjunction with the Thoracic Surgery Department at [facility]. - A copy of the office note and LDCT will be sent to the patient's PCP - as well as documentation on any associated further plans of care. - Incidental findings on LDCT are the PCP's responsibility. These findings are indicated with an S finding on the LDCT Assessment. A note discussing the findings will be sent to the PCP who is then responsible for further management. - All questions answered.? Coding Level of Care Code Lung Cancer Screening G0296 Diagnoses Nicotine dependence, cigarettes, uncomplicated F17.210
--- OUTSIDE RECORDS SUMMARY | 2024-12-12 12:04 | XMS_ITS | Encounter Summary ---
Author Organization [employer] Address [address] [facility] [address] [place] [address] Care Team Providers Care Advisor To Command In Combat Name Role Phone Alycia Cooper Primary Care Provider [phone] Reason for Visit * Reason Comments Med Refill Encounter Details Date Type Department Care Team ([facility] Contact Info) Description 08/17/2024 Refill [facility] [address] [place] [address] Alycia Cooper FNP [address] [place], [place] [phone] Social History Tobacco Use Types Packs/Day Years Used Date Smoking Tobacco: Every Day Cigarettes Smokeless Tobacco: Never Alcohol Use Standard Drinks/Week Comments Never 0 (1 standard drink = 0.6 oz pur e alcohol) Depression Answer Date Recorded Patient Health Questionnaire-9 Score 0 02/24/2022 Housing Stability Answer Date Recorded What is your housing situation today? I have xavi ruiz 07/21/[address] you li ve. Do you have problems with any of the following? None of the above 07/21/2024 Food Insecurity Answer Date Recorded Within the past 12 months, y ou worried that your food would run out before you got money to buy more: Sometimes True 2024 Within the past 12 months,th e food you bought just didn't last and you didn't have enough money to get more: Sometimes True 07/21/2024 Transportation Answer Date Recorded In the past 12 months, has l ack of transportation kept you from medical appts, meetings, work or from getting things needed for daily living? No 07/21/2024 Utilities Answer Date Recorded In the past 12 months, has t he electric, gas, oil or water company threatened to shut off services in your home? No 07/21/2024 Depression Answer Date Recorded Patient Health Questionnaire-2 Score 2 02/02/2023 Internet Access Answer Date Recorded Internet Access Q1 Yes 07/21/2024 Internet Access Q2 Not on file 07/21/2024 Comments Unknown Sex and Gender Information Value Date Recorded Sex Assigned at Female 12/19/2021 10:37 AM EDT Legal Sex Female 10:37 AM EDT Gender Identity Female 12/19/2021 10:37 AM EDT Sexual Orientation Straight 12/19/2021 10 :37 AM EDT documented as of this encounter Plan of Treatment Upcoming Encounters Date Type Department Care Team (Late st Contact Info) Description 02/03/2025 11:00 AM EST Office Visit [facility] [address] [place] [address] Siobhan Avina, OD [address] [place] [address] documented as of this encounter Visit Diagnoses Not on filedocumented in this encounter Additional Health Concerns Assessment Noted Time PHQ-9 Depression Total Score: 0 02/24/19 23 2:32 PM EST documented as of this encounter Care Teams Advisor To Command In Combat Relationship Specialty Start Date End Date Alycia Cooper FNP [address] [place] [address] PCP - General Family Medicine 10/15/21 documented as of this encounter
--- OUTSIDE RECORDS SUMMARY | 2024-12-12 12:04 | XMS_ITS | Encounter Summary ---
Author Organization [employer] Address [address] [place] [address] Care Team Providers Care News Wire Photo Operator Name Role Phone Alycia Cooper YUNG Primary Care Provider [phone] Encounter Details Date Type Department Care Team (Late st Contact Info) Description 12/12/2024 Orders Only [facility] External Provider, [facility] Social History Tobacco Use Types Packs/Day Years Used Date Smoking Tobacco: Every Day Cigarettes Smokeless Tobacco: Never Alcohol Use Standard Drinks/Week Comments Never 0 (1 standard drink = 0.6 oz pur e alcohol) Depression Answer Date Recorded Patient Health Questionnaire-9 Score 2 10/24/2024 Patient Health Questionnaire-9 Score 2 10/24/2024 Last PHQ-9: Questionnaire Data Not on file 0 10/24/2024 Housing Stability Answer Date Recorded What is [...] Answer Date Recorded Patient Health Questionnaire-2 Score 0 10/24/2024 Internet Access Answer Date Recorded Internet Access [...] Description 02/03/2025 11:00 AM EST Office Visit [facility] [address] [place] [address] TarkaSiobhan, OD [address] [place] [address] documented as of this encounter Procedures Procedure Name Priority Date/Time Associated Diagnosis Comments LDCT LUNG SCREENING Routine 12/12/2024 1 1:09 AM EDT documented in this encounter Results * CT Lung Screening Low dose (12/12/2024 11:09 AM EDT) Anatomical Region Laterality Modality Lung Computed Tomogra phy 12/12/2024 11:0 9 AM EDT Narrative 12/12/2024 11:39 AM EDT [address] [address] [address] Scan Report Signed Patient: Eva Power MR#: [id number] : 1965 Acct:[id number] Age/Sex: 59 / F ADM Date: 12/12/24 Loc: HO.CT Attending Dr: Madyson Ordoñez PA-C Ordering Physician: Madyson Ordoñez PA-C Date of Service: 12/12/24 Procedure(s): CT lung screening Accession Number(s): [id number] cc: Madyson Ordoñez PA-C; Alycia Cooper Report Number: [id number]: Total DLP = 57.00 mGy-cm Reason for Exam: F17.210 - Nicotine dependence, cigarettes, uncomplicated EXAMINATION: CT LOW-DOSE SCREENING CHEST WITHOUT CONTRAST CLINICAL INFORMATION: 59-year-old female, current smoker, 46 pack years, lung cancer screening. COMPARISON: None available. TECHNIQUE: Multidetector volumetric CT imaging of the chest is performed on a Siemens SOMATOM Definition scanner without contrast using low dose technique. Additional 2D coronal and sagittal reformatted images and axial 3D maximum intensity projection (MIP) images are generated on the CT workstation. This CT examination was performed using dose optimization techniques as appropriate, variously including the following: *Automated exposure control *Adjustment of mA and/or kV according to patient size (this includes techniques or standardized protocols for targeted exams where dose is matched to indication/reason for exam; i.e. extremities or head) *Use of iterative reconstruction technique FINDINGS: PULMONARY NODULES: 2 mm nodule lateral right apex (series 5, image 29). 2 mm nodule lateral right upper lobe (series 5, image 44). 2 mm calcified granuloma right middle lobe abutting the fissure (series 5, image 81). There are a few additional scattered calcified and noncalcified 2 mm micronodules present in both lungs. LUNGS: Lungs are well aerated and symmetrically expanded. There is mild paraseptal emphysema present. There is reticular scarring or atelectasis in the lateral right lower lobe. There is mild thickening of the small airways suggesting mild chronic bronchitis. There is no pleural effusion or pneumothorax. MEDIASTINUM: Normal-appearing thyroid without discrete nodule. No mediastinal mass or abnormal lymph nodes. Aorta is mildly calcified but nonaneurysmal. Main pulmonary artery is normal in caliber. Heart size is normal. No pericardial effusion. There is a small type I hiatus hernia. Central airways are patent. CORONARY ARTERY CALCIFICATION: Mild. CHEST WALL/AXILLA: No masses or abnormal lymph nodes. UPPER ABDOMEN: There has been a cholecystectomy. The remainder of the imaged upper abdominal contents appear normal within the confines of noncontrast low dose technique. OSSEOUS STRUCTURES: No suspicious lytic or blastic bone lesion. Mild degenerative changes of the spine. CT/CT lung screening IMPRESSION: 1. There are a few scattered 2 mm calcified and noncalcified micronodules, statistically benign. 2. There is mild paraseptal emphysema. 3. There is mild small airway thickening suggesting chronic bronchitis. ASSESSMENT: 1. Lung-RADS Category 2: Benign appearance or behavior of nodules. 2. Lung-RADS Category S: None. RECOMMENDATION: Continued routine annual low-dose CT lung screening in 1 year is recommended. An order for CT CHEST LOW DOSE CANCER SCREENING ([id number]) can be placed. Electronically signed by: Jaydon Miramontes MD 12/12/2024 11:36 AM EDT Dictated By: Jaydno Miramontes MD Signed By: <Electronically signed by Jaydon Miramontes MD in OV> 12/12/24 1136 DD/ 1109 TD/TT: 12/12/24 1118 Security Assurance Specialist: Procedure Note Donotuseinterpreter, Image - 12/12/[address] [place] [address] [address] Scan Report Signed Patient: Fely Power#: [id number] : 1965Acct:[id number] Age/Sex: 59 / FADM Date: 12/12/24 Loc: HO.CT Attending Dr: Madyson Ordoñez PA-C Ordering Physician: Madyson Ordoñez PA-C Date of Service: 12/12/24 Procedure(s): CT lung screening Accession Number(s): [id number] cc: Madyson Ordoñez PA-C; Alycia Cooper [facility] Report Number: [id number]: Total DLP = 57.00 mGy-cm Reason for Exam: F17.210 - Nicotine dependence, cigarettes, uncomplicated EXAMINATION: CT LOW-DOSE SCREENING CHEST WITHOUT CONTRAST CLINICAL INFORMATION: 59-year-old female, current smoker, 46 pack years, lung cancer screening. COMPARISON: None available. TECHNIQUE: Multidetector volumetric CT imaging of the chest is performed on a Siemens SOMATOM Definition scanner without contrast using low dose technique. Additional 2D coronal and sagittal reformatted images and axial 3D maximum intensity projection (MIP) images are generated on the CT workstation. This CT examination was performed using dose optimization techniques as appropriate, variously including the following: *Automated exposure control *Adjustment of mA and/or kV according to patient size (this includes techniques or standardized protocols for targeted exams where dose is matched to indication/reason for exam; i.e. extremities or head) *Use of iterative reconstruction technique FINDINGS: PULMONARY NODULES: 2 mm nodule lateral right apex (series 5, image 29). 2 mm nodule lateral right upper lobe (series 5, image 44). 2 mm calcified granuloma right middle lobe abutting the fissure (series 5, image 81). There are a few additional scattered calcified and noncalcified 2 mm micronodules present in both lungs. LUNGS: Lungs are well aerated and symmetrically expanded. There is mild paraseptal emphysema present. There is reticular scarring or atelectasis in the lateral right lower lobe. There is mild thickening of the small airways suggesting mild chronic bronchitis. There is no pleural effusion or pneumothorax. MEDIASTINUM: Normal-appearing thyroid without discrete nodule. No mediastinal mass or abnormal lymph nodes. Aorta is mildly calcified but nonaneurysmal. Main pulmonary artery is normal in caliber. Heart size is normal. No pericardial effusion. There is a small type I hiatus hernia. Central airways are patent. CORONARY ARTERY CALCIFICATION: Mild. CHEST WALL/AXILLA: No masses or abnormal lymph nodes. UPPER ABDOMEN: There has been a cholecystectomy. The remainder of the imaged upper abdominal contents appear normal within the confines of noncontrast low dose technique. OSSEOUS STRUCTURES: No suspicious lytic or blastic bone lesion. Mild degenerative changes of the spine. CT/CT lung screening IMPRESSION: 1. There are a few scattered 2 mm calcified and noncalcified micronodules, statistically benign. 2. There is mild paraseptal emphysema. 3. There is mild small airway thickening suggesting chronic bronchitis. ASSESSMENT: 1. Lung-RADS Category 2: Benign appearance or behavior of nodules. 2. Lung-RADS Category S: None. RECOMMENDATION: Continued routine annual low-dose CT lung screening in 1 year is recommended. An order for CT CHEST LOW DOSE CANCER SCREENING ([id number]) can be placed. Electronically signed by: Jaydon Miramontes MD 12/12/2024 11:36 AM EDT Dictated By: Jaydon Miramontes MD Signed By: <Electronically signed by Jaydon Miramontes MD in OV> 12/12/24 1136 DD/ 1109 TD/TT: 12/12/24 1118 Security Assurance Specialist: [facility] External Provider IMG CT PROCEDURES Final Result documented in this encounter Visit Diagnoses Not on filedocumented in this encounter Additional Health Concerns Assessment Noted Time PHQ-9 Depression Total Score: 2 10/25/19 25 9:56 AM EDT documented as of this encounter Care Teams News Wire Photo Operator Relationship Specialty Start Date End Date Alycia Cooper FNP [address] [place] [id number] PCP - General Family Medicine 10/15/21 documented as of this encounter
--- OUTSIDE RECORDS SUMMARY | 2024-12-12 12:04 | XMS_ITS | Encounter Summary ---
Author Organization [employer] Address [address] [facility] [address] [place] [address] Care Team Providers Care Seal Mixing Operator Name Role Phone Alycia Cooper Primary Care Provider [phone] Reason for Visit * Reason Comments Med Refill Encounter Details Date Type Department Care Team ([facility] Contact Info) Description 08/06/2024 Refill [facility] [address] [place] [address] Alycia Cooper FNP [address] [place], [place] [phone] Mixed stress and urge urinary incontinence Social History Tobacco Use Types Packs/Day Years [...] Description 02/03/2025 11:00 AM EST Office Visit [facility] OPTOM[facility] [address] [place] [address] Siobhan Avina, OD [address] [place] [address] documented as of this encounter Visit Diagnoses Diagnosis Mixed stress and urge urinary incontinence Mixed incontinence urge and stress (male)(female) documented in this encounter Additional Health Concerns Assessment Noted Time PHQ-9 Depression Total Score: 0 02/24/19 23 2:32 PM EST documented as of this encounter Care Teams Seal Mixing Operator Relationship Specialty Start Date End Date Alycia Cooper FNP [address] [place] [id number] PCP - General Family Medicine 10/15/21 documented as of this encounter
--- OUTSIDE RECORDS SUMMARY | 2024-12-12 12:04 | XMS_ITS | Clinical Summary ---
Author Organization [employer] Address [address] [place] [address] Care Team Providers Care Front Maker Lockstitch Name Role Phone Alycia Cooper YUNG Primary Care Provider [phone] Allergies No known active allergies Medications betamethasone, augmented, (Diprolene) 0.05 % ointment APPLY TO HANDS TWICE A DAY NEEDED FOR FLARES 01/06/20 22 Active hydrocortisone (Anusol-HC) 2.5 % rectal cream 1 APPLICATION RECTALLY 2 TIMES A DAY NEEDED FOR HEMORRHOIDS 01/06/20 22 Active triamcinolone (Kenalog) 0.5 % ointment APPLY TO HANDS TWICE DAILY NEEDED FOR FLARES 05/07/19 22 Active cholecalciferol VITAMIN D (Vitamin D-3) 50 MCG (1999 UT) capsule TAKE 1 CAPSULE (50 MCG) BY MOUTH IN THE MORNING 90 capsule 3 10/31/19 24 Active betamethasone dipropionate (Diprosone) 0.05 % ointment APPLY TO HANDS AND FEET DAILY NEEDED FOR FLARES 07/03/19 24 Active glucose blood (FREESTYLE LITE) test strip Test blood sugars twice a day 100 strip 11 11/26/19 24 Active atorvastatin (Lipitor) 80 MG tabletIndications: Mixed hyperlipidemia Take 1 tablet (80 mg) by mouth at bedtime. (For cholesterol) 90 tablet 3 12/11/19 24 Active Diclofenac Sodium 1 % gelIndications:Isaiah caneal spur of left foot APPLY THIN LAYER TO AFFECTED AREA 3-4 TIMES DAILY NEEDED FOR PAIN 100 g 5 03/14/20 25 Active mirabegron ER (Myrbetriq) 50 MG 24 hr tablet TAKE 1 TABLET (50 MG) BY MOUTH AT BEDTIME. DO NOT CRUSH, CHEW, OR SPLIT. 90 tablet 05/28/19 25 Active metFORMIN (Glucophage) 1000 MG tablet TAKE 1 TABLET BY MOUTH WITH BREAKFAST AND WITH EVENING MEAL 180 tablet 1 08/26/19 25 Active celecoxib (CeleBREX) 100 MG capsule TAKE 1 CAPSULE BY MOUTH EVERY 12 HOURS NEEDED FOR PAIN 60 capsule 2 09/04/19 25 Active acetaminophen (Tylenol 8 Hour) 650 MG ER tablet TAKE 1 TABLET BY MOUTH EVERY 8 HOURS IF NEEDED FOR PAIN OR FEVER. DO NOT CRUSH, CHEW, OR SPLIT. 90 tablet 2 09/25/19 25 Active albuterol 108 (90 Base) MCG/ACT inhalerIndications :Wheezing Inhale 2 puffs Every 4-6 hours as needed for wheezing or shortness of breath. 18 g 1 10/25/19 25 026 Active Active Problems Problem Noted Date Diagnosed Date Macromastia 10/26/2024 Assessment & Plan (10/26/2024 4:40 PM EDT): - Macromastia persists, causing discomfort and upper back pain. Physical therapy provided mild improvement. - Ordered referral for physical therapy at [facility] in [place] with updated insurance. Discussed possible future breast reduction pending completion of physical therapy as required by insurance. Post-menopausal bleeding 11/26/2023 Assessment & Plan (07/22/2024 6:28 PM EDT): Menopause around 2020 Menses x 1 week in Feb 2023 Pap HPV neg, NILM in Oct 2023 Completed Hysteroscopy D&C, polypectomy with [facility] (Dr. Murguia) in December 2023. Indication: PMB, abnormal endometrium. Path - endometrial polyp. No atypia identified. Denies any further PMB. Assessment & Plan (11/26/2023 5:56 PM EDT): Menopause around 2020 Menses x 1 week in Feb 2023 Evaluated by [facility] - Dr. Murguia. Plan: pelvic US, CT/NG, proceed with EMB if endometrial thickness of US is more than 4mm. Pap HPV neg, NILM in Oct 2023 Difficulty hearing, unspecified laterality 05/30 Overview (10/26/2024): Audiology eval completed from 05/09/22, recommended CROS device for hearing. (Dr. Ekaterina Gonzales). Assessment & Plan (10/26/2024 4:40 PM EDT): - Ongoing difficulty hearing, with persistent buzzing and reduced hearing in right ear despite hearing aid use. - Ordered referral to audiology/speech and hearing clinic at [facility] for evaluation of hearing aids and hearing function. Retained dental root 08/29/2022 Routine health maintenance 04/02/2022 Overview (10/26/2024): Pap: NILM, HPV neg on 11/14/23. (Previous: HPV neg on 09/18/20) Colonoscopy 07/2021, repeat 5 years Mammo: 09/23/24 - BIRADS 1 Dental- established with [facility] Dental Post-menopausal (LMP 2020) LDCT: scheduled 12/12/24 at [facility] Calcaneal spur of left foot 03/30/2022 Overview (05/31/2023): -X-ray Sep 2021 w/ Calcaneal spur of left foot -Pt reports previously receiving injections through podiatry -Currently following with Dr. Crane as of May 2023 Assessment & Plan (05/31/2023 10:57 AM EDT): - Improved - June trial use of topical voltaren gel Prn, reviewed med use and SE Iron deficiency 02/26/2022 Assessment & Plan (11/26/2023 10:11 AM EDT): -Hx of iron deficiency, although most recent CBC and iron studies WNL Feb 2022 -Iron supplementation discontinued 03/30/22, with plan to recheck labs in 3 months (approx June 2022) -Repeat labs sent for further eval Assessment & Plan (07/30/2022 3:32 PM EDT): -Hx of iron deficiency, although most recent CBC and iron studies WNL Feb 2022 -Iron supplementation discontinued 03/30/22, with plan to recheck labs in 3 months (approx June 2022) -Repeat labs sent for further eval Assessment & Plan (04/02/2022 5:21 PM EST): -Hx of iron deficiency, although most recent CBC and iron studies WNL -Plan to DC iron supplementation 03/30/22, and recheck labs in 3 months (approx June 2022) Assessment & Plan (02/26/2022 11:44 AM EST): -Hx of iron deficiency -Switch from ferrous sulfate to ferrous gluconate to assist with tolerability of SE -Recheck CBC and iron studies Type 2 diabetes mellitus without complication Assessment & Plan (10/26/2024 4:35 PM EDT): Lab Results Component Value Date HGBA1C 6.3 (A) 10/24/2024 HGBA1C 6.6 (A) 07/21/2024 HGBA1C 7.4 (A) 11/26/2023 HGBA1C 6.4 (A) 02/02/2023 -A1c goal <7%, well controlled -Continue with metformin 1000mg BID -Statin: yes -Reviewed nutrition and low carb meals/snacks -Monofilament completed: 07/21/24 Assessment & Plan (07/22/2024 6:39 PM EDT): Lab Results Component Value Date HGBA1C 6.6 (A) 07/21/2024 HGBA1C 7.4 (A) 11/26/2023 HGBA1C 6.4 (A) 02/02/2023 HGBA1C 6.8 (A) 07/27/2022 -A1c goal <7%, well controlled -Continue with metformin 1000mg BID -Statin: yes -Reviewed nutrition and low carb meals/snacks -Monofilament completed: 07/21/24 Assessment & Plan (11/26/2023 5:57 PM EDT): Lab Results Component Value Date HGBA1C 7.4 (A) 11/26/2023 HGBA1C 6.4 (A) 02/02/2023 HGBA1C 6.8 (A) 07/27/2022 HGBA1C 6.3 (H) 02/27/2022 -A1c goal <7%, above goal -Continue with metformin 1000mg BID -Reviewed nutrition and low carb meals/snacks -Plan: first attempt changes in lifestyle interventions. May consider addition of other pharmacotherapy agent in future PRN Assessment & Plan (05/31/2023 11:01 AM EDT): Lab Results Component Value Date HGBA1C 6.4 (A) 02/02/2023 Well controlled -Continue with metformin 1000mg BID -Continue with lifestyle interventions such as healthy dietary and exercise habits Assessment & Plan (02/02/2023 6:43 AM EST): Lab Results Component Value Date HGBA1C 6.8 (A) 07/27/2022 Well controlled -Continue with metformin 1000mg BID -Continue with lifestyle interventions such as healthy dietary and exercise habits Assessment & Plan (07/30/2022 3:31 PM EDT): Lab Results Component Value Date HGBA1C 6.8 (A) 07/27/2022 Well controlled -Continue with metformin 1000mg BID -Continue with lifestyle interventions such as healthy dietary and exercise habits Assessment & Plan (04/02/2022 5:22 PM EST): Lab Results Component Value Date HGBA1C 6.3 (H) 02/27/2022 Well controlled -Continue with metformin 1000mg BID -Continue with lifestyle interventions such as healthy dietary and exercise habits Follow up in 3 months for chronic conditions, sooner as needed. Assessment & Plan (02/26/2022 11:41 AM EST): Lab Results Component Value Date HGBA1C 6.6 (A) 02/24/2022 Well controlled -Continue with metformin 1000mg BID -Continue with lifestyle interventions such as healthy dietary and exercise habits Follow up in 3 months for chronic conditions, sooner as needed. Hyperlipidemia 01/27/2022 Assessment & Plan (05/31/2023 11:01 AM EDT): -Continue with atorvastatin 40mg nightly -Recheck labs next appt Assessment & Plan (07/30/2022 3:32 PM EDT): -Continue with atorvastatin 20mg nightly -Recheck fasting lipid panel Assessment & Plan (02/26/2022 11:42 AM EST): -Continue with atorvastatin 20mg nightly -Recheck fasting lipid panel Internal hemorrhoids 07/21/2021 Tubular adenoma 07/21/2021 Smoker 05/04/2021 Assessment & Plan (10/26/2024 4:39 PM EDT): -Cigg/day: Currently 1, in the past 10 cigg/day -Age started: 13 years old -Total years smokin years -Pack year history: Approximately 22 pack years years Encouraged smoking cessation resources such as pharmacomtherapy, [facility] smoking cessation group, and [facility] pharmacy smoking cessation clinic - She plans to continue decreasing slowly herself. - [facility] LDCT: scheduled 12/12/24 Assessment & Plan (07/22/2024 6:35 PM EDT): -Cigg/day: Currently 1, in the past 10 cigg/day -Age started: 13 years old -Total years smokin years -Pack year history: Approximately 22 pack years years Encouraged smoking cessation resources such as pharmacomtherapy, [facility] smoking cessation group, and [facility] pharmacy smoking cessation clinic - She plans to continue decreasing slowly herself. Congratulated as she is down to only 1 cigarette/day - Referred to [facility] LDCT for lung CA screenin07/21/2024 Assessment & Plan (11/26/2023 5:57 PM EDT): -Smoking approx 10 cigg/day. -Encourage smoking cessation resources such as pharmacomtherapy, [facility] smoking cessation group, and [facility] pharmacy smoking cessation clinic -Discuss eligibility of LDCT next appt Assessment & Plan (05/31/2023 11:02 AM EDT): -Smoking approx 9 cigg/day. -Encourage smoking cessation resources such as pharmacomtherapy, [facility] smoking cessation group, and [facility] pharmacy smoking cessation clinic Assessment & Plan (02/04/2023 3:08 PM EST): -Smoking approx 9 cigg/day. -Encourage smoking cessation resources such as pharmacomtherapy, [facility] smoking cessation group, and [facility] pharmacy smoking cessation clinic Assessment & Plan (02/26/2022 11:43 AM EST): -Smoking approx 5-6 cigg/day. - Declined further smoking cessation resources today, but will follow up in future if interested. Mixed stress and urge urinary incontinence 12/28 Assessment & Plan (02/04/2023 3:09 PM EST): -Bridge prescription mirabegrom ER 50mg sent to pharmacy -Cont following with [facility] Assessment & Plan (07/30/2022 3:35 PM EDT): -Prescibed mirabegrom ER 25mg daily through [facility], having difficulty communicating with office regarding refill -requested nurses to assist with contacting [facility] Assessment & Plan (02/26/2022 11:42 AM EST): -Continues withmirabegrom ER 25mg daily through [facility] Hepatic fibrosis 04/11/2020 Resolved Problems Problem Noted Date Diagnosed Date Resolved Date Acute conjunctivitis of right eye 08/09/2023 11/26/2023 Assessment & Plan (08/09/2023 2:14 PM EDT): If symptoms persist or worse return to clinic History of colonoscopy 01/27/202202/26 Encounters Date Type Department Care Team Description 12/12/2024 Orders Only [facility] External Provider, [facility] 10/24/2024 10:00 AM EDT Office Visit [facility] [address] [place] [address] Alycia Cooper FNP Type 2 diabetes mellitus without complication, without long-term current use of insulin ([facility]) (Primary Dx); Macromastia; Upper back pain; Difficulty hearing, unspecified laterality; Wears hearing aid; Dietary counseling; Exercise counseling; Routine health maintenance; Wheezing; Smoker 10/24/2024 Telephone [facility] [address] [place] [address], [place] [phone] Alycia Cooper FNP 10/24/2024 Travel 10/23/2024 Telephone [facility] [address], [place] [phone] Alycia Cooper FNP chart prep 10/16/2024 Patient Outreach [facility] MEDICINE [address] [place] [address] [phone] Alycia Cooper FNP Pre-visit Planning ([facility] screening completed on 07/21/24 ) 09/24/2024 Refill [facility] [address] [place] [phone] Alycia Cooper FNP 09/23/2024 Orders Only [facility] [address], [place] [phone] Alycia Cooper FNP from Last 3 Months Immunizations Immunization Administration Dates Next Due Hep B, adult 08/18/2020,06/08/2020,04/21/2020 HepB-CpG 02/27/2024,01/16/2024 Influenza injectable quadriv alent IIV4 with preservative 02/24/2022 Influenza injectable quadriv alent preservative free 12/27/2020,01/14/2020 Influenza, seasonal, injecta ble, preservative free 11/26/2023 Moderna Covid-19 Vaccine 12+ 02/20/2021,05/20/19 21,04/21/2020 Pfizer Covid-19 Vaccine 12+ 11/26/2023 Pneumococcal Conjugate PCV 20 07/27/2022 Pneumococcal Polysaccharide PPSV23 06/18/2020 Tdap 06/18/2020 Zoster, Recombinant 08/26/2020,06/21/2020 Family History Medical History Relation Name Comments Lung cancer Father Diabetes Mother cardiovascular disease Mother Diabetes Sister Relation Name Status Comments Father Mother Sister Social History Tobacco Use Types Packs/Day Years Used Date Smoking Tobacco: Every Day Cigarettes Smokeless Tobacco: Never Tobacco Cessation:Ready to Q uit: Not Asked; Counseling Given: Not Answered Alcohol Use Standard Drinks/Week Comments Never 0 [...] Orientation Straight 12/19/2021 10 :37 AM EDT Last Filed Vital Signs Vital Sign Reading Time Taken Comments Blood Pressure 119/78 10/24/2024 9:53 AM EDT Pulse 60 10/24/2024 9:53 AM EDT Temperature 36.5 C (97.7 F) 10/24/2024 9:53 AM EDT Respiratory Rate 20 10/24/2024 9:53 AM EDT Oxygen Saturation 95% 10/24/2024 9:53 AM EDT Inhaled Oxygen Concentration - - Weight 66.7 kg (147 lb) 10/24/2024 9:53 AM EDT Height 154.9 cm (5' 1 ) 10/24/2024 9:53 AM EDT Body Mass Index 27.78 10/24/2024 9:53 AM EDT Plan of Treatment Upcoming Encounters Date Type Department Care Team (Late st Contact Info) Description 02/03/2025 11:00 AM EST Office Visit [facility] OPTOMETRY [address] [place] [address] Siobhan Avina, OD [address] [place] [address] Health Maintenance Due Date Last Done Comments CT Colonography 1967 Dental Prophylaxis 1967 Dental X-Ray: Bitewings 1967 FIT DNA/Cologuard 1967 FIT 1967 FOBT 1965 Sigmoidoscopy 1967 Alcohol/Substance Use Screening 1979 Hepatitis A Vaccines (1 of 2 - Risk 2-dose series) 09/17/1986 Dental Oral Exam 02/09/2023 08/09/2022, 07/12/2020 Dental X-Ray: Full Mouth 07/14/2023 07/12/2020 Influenza Vaccine (#1) 2024 , 02/24/2022, 12/27/2020, Additional history exists Diabetes: Urine Protein Screening 11/26/2024 11/27/2023 Lipid Panel 11/26/2024 11/27/2023, 06/0 09/2022, 02/27/2022, Additional history exists Diabetes: Hemoglobin A1C 04/23/2025 025, 07/21/2024, 11/26/2023, Additional history exists Diabetes: Foot Exam 07/21/2025 07/21/2024, 07/21/2024, 07/21/2024, Additional history exists Disability Screening 07/21/2025 07/21/2024 SDOH Screening 07/21/2025 07/21/2024 Tobacco Screening 07/21/2025 07/21/2024 Mammogram 09/23/2025 09/23/2024, 08/21, 09/12/2022, Additional history exists Depression Screening 10/24/2025 10/24/2024, 10/25/19 Eye Exam 12/05/2025 12/06/2023, 11/19, 12/06/2023, Additional history exists Colonoscopy 07/20/2026 07/20/2021 Colorectal Cancer Screening 07/20/2026 Pap Smear 11/13/2026 11/14/2023, 09/17/2020 Cervical Cancer Screening 11/13/2028 HPV/Cotest 11/13/2028 11/14/2023, 08/21, 05/19/2020 DTaP/Tdap/Td Vaccines (2 - Td or Tdap) 06/18/2030 06/18/2020 RSV Patients and Patients Aged 60 years or older (1 - 1-dose 75+ series) 09/17/2042 HIV Screening Completed 04/07/2020 Zoster Vaccines Completed 08/26/2020, 06/21/2020 Pneumococcal Vaccine: 50+ Years Completed 07/27/2022, 06/18/2020 COVID-19 Vaccine Completed 11/26/2023, 03/2021, 05/19/2020, Additional history exists Hepatitis B Vaccines Completed 02/27/2024, 01/16/2024, 08/18/2020, Additional history exists HIB Vaccines Aged Out No longer eligi [...] patient's age to complete this topic Meningococcal Vaccine Aged Out No homa michelle eligible based on patient's age to complete this topic RSV under 20 months Aged Out No longe r eligible based on patient's age to complete this topic Rotavirus Vaccines Aged Out No longer eligible based on patient's age to complete this topic Procedures Procedure Name Priority Date/Time Associated Diagnosis Comments LDCT LUNG SCREENING Routine 12/12/2024 1 1:09 AM EDT POCT GLYCATED HEMOGLOBIN, TOTAL Routine 10/24/2024 11:12 AM EDT Type 2 diabetes mellitus without complication, without long-term current use of insulin (CMS/HCC) POCT GLUCOSE Routine 10/24/2024 11:11 AM EDT Type 2 diabetes mellitus without complication, without long-term current use of insulin (CMS/HCC) BI MAMMOGRAM SCREENING TOMOSYNTHESIS BILATERAL Routine 09/23/2024 8:15 AM EDT ALBUMIN, RANDOM URINE W/CREATININE Routine 11/27/2023 10:52 AM EDT Type 2 diabetes mellitus without complication, without long-term current use of insulin (CMS/HCC) LIPID PANEL, STANDARD Routine 11/27/2023 10:52 AM EDT Type 2 diabetes mellitus without complication, without long-term current use of insulin (CMS/HCC) THINPREP IMAGING PAP AND HPV MRNA E6/E7 WITH REFLEX TO HPV 16,18/45 Routine 11/14/2023 11:20 AM EDT PERIODIC ORAL EVALUATION - ESTABLISHED PATIENT Routine 08/09/2022 10:30 AM EDT HM COLONOSCOPY Routine 07/20/2021 PANORAMIC RADIOGRAPHIC IMAGE Routine 07/12/2020 12:00 AM EDT HIV 1/2 ANTIGEN/ANTIBODY, FOURTH GENERATION W/RFL Routine 04/07/2020 3:21 PM EST from Last 3 Months or Most Recently Relevant to Health Maintenance Results * CT Lung Screening Low dose (12/12/2024 11:09 AM EDT) Anatomical Region Laterality Modality Lung Computed Tomogra phy 12/12/2024 11:0 9 AM EDT Narrative 12/12/2024 11:39 AM EDT [address] [address] [address] Scan Report Signed Patient: Eva Power MR#: [id number] : 1965 Acct:[id number] Age/Sex: 59 / F ADM Date: 12/12/24 Loc: HO.CT Attending Dr: Madyson Ordoñez PA-C Ordering Physician: Madyson Ordoñez PA-C Date of Service: 12/12/24 Procedure(s): CT lung screening Accession Number(s): [id number] cc: Madyson Ordoñez PA-C; KennethAlycia [facility] Report Number: [id number]: Total DLP = 57.00 mGy-cm Reason for [...] for CT CHEST LOW DOSE CANCER SCREENING ([id number]) can be placed. Electronically signed by: Jaydon Miramontes MD 12/12/2024 11:36 AM EDT RP Dictated By: Jaydon Miramontes MD Signed By: <Electronically signed by Jaydon Miramontes MD in OV> 12/12/24 1136 DD/ 1109 TD/TT: 12/12/24 1118 Building Maintenance Repairer: Procedure Note Donotuseinterpreter, Image - 12/12/[address] [place] [address] [address] Scan Report Signed Patient: Fely Power#: [id number] : 1965Acct:[id number] Age/Sex: 59 / FADM Date: 12/12/24 Loc: HO.CT Attending Dr: Madyson Ordoñez PA-C Ordering Physician: Madyson Ordoñez PA-C Date of Service: 12/12/24 Procedure(s): CT lung screening Accession Number(s): [id number] cc: Madyson Ordoñez PA-C; Alycia Cooper [facility] Report Number: [id number]: Total DLP = 57.00 mGy-cm Reason for [...] for CT CHEST LOW DOSE CANCER SCREENING ([id number]) can be placed. Electronically signed by: Jaydon Miramontes MD 12/12/2024 11:36 AM EDT Dictated By: Jaydon Miramontes MD Signed By: <Electronically signed by Jaydon Miramontes MD in OV> 12/12/24 1136 DD/ 1109 TD/TT: 12/12/24 1118 Building Maintenance Repairer: [facility] External Provider IMG CT PROCEDURES Final Result * (ABNORMAL) POCT Hgb A1c (10/24/2024 11:12 AM EDT) Hemoglobin A1C 6.3(A) 4.0 - 5.7 % QC Media Lot # [id number] Lot# Expiration Date 829,330 Blood 10/24/2024 11:1 2 AM EDT Alycia Cooper FABRIC WORKER LEADER POINT OF CARE TEST ENTER/EDIT ORDERABLES Final Result * POCT Glucose (10/24/2024 11:11 AM EDT) Glucose Blood, POC 115 60 - 200 mg/dL QC Media Lot # [id number] Lot# Expiration Date 199,495 Comment:random Blood Capillary blood specimen / Unknown 10/24/2024 11:11 AM EDT Alyciahomer Gatica FABRIC WORKER LEADER POINT OF CARE TEST ENTER/EDIT ORDERABLES Final Result * BI Mammogram Screening Tomosynthesis Bilateral (09/23/2024 8:15 AM EDT) Anatomical Region Laterality Modality Breast Bilateral Mammography 09/23/2024 8:15 AM EDT Narrative 10/02/2024 2:57 PM EDT [facility] [address] [place] [address] Mammography Report Signed Patient: Eva Power MR#: [id number] : 1965 Acct:[id number] Age/Sex: 59 / F ADM Date: 09/23/24 Loc: REYNAO Attending Dr: Alycia Cooper FABRIC WORKER LEADER Ordering Physician: Alycia Cooper Results: 1Negat wade Date of Service: 09/23/24 Follow Up: 1 Year From Orig ina Mammogram Procedure(s): MM tomosynthesis screening BI Accession Number(s): [id number] cc: Alycia Cooper FABRIC WORKER LEADER EXAMINATION: MM SCREENING DIGITAL BREAST TOMOSYNTHESIS, BILATERAL CLINICAL INFORMATION: Screening. Asymptomatic. COMPARISON: Mammography: Comparison is made with available priors TECHNIQUE: Digital breast mammography with tomosynthesis is performed in both the craniocaudal and mediolateral oblique views along with computer-aided detection (CAD). FINDINGS: There are scattered areas of fibroglandular density (ACR BI-RADS breast composition Category b). There are no significant masses, abnormal calcifications, or other abnormalities. MM/MM tomosynthesis screening BI IMPRESSION: No mammographic evidence of malignancy. ASSESSMENT: BI-RADS BI-RADS 1 - Negative RECOMMENDATION: Routine annual mammography screening. 1 year F/U This examination should not preclude the clinical evaluation of a suspicious palpable abnormality. This patient's information was entered into a reminder system with a target due date for their next mammogram. Electronically signed by: Fouzia Welsh DO 10/02/2024 02:54 PM EDT Dictated By: Fouzia Welsh DO Signed By: <Electronically signed by Fouzia Welsh DO in OV> 10/02/24 1454 DD/ 0815 TD/TT: 09/23/24 0825 Building Maintenance Repairer: Procedure Note Donotuseinterpreter, Image - 10/02/2024 [facility] [address] [place] [address] Dr. Young, NICOLE [address] Mammography Report Signed Patient: Fely Power#: [id number] : 1965Acct:[id number] Age/Sex: 59 / FADM Date: 09/23/24 Loc: HO.MAMMO Attending Dr: Alycia Cooper FABRIC WORKER LEADER Ordering Physician: Alycia CooperPResults: 1Negat wade Date of Service: 09/23/24Follow Up: 1 Year From Orig ina Mammogram Procedure(s): MM tomosynthesis screening BI Accession Number(s): [id number] cc: Alycia Cooper FABRIC WORKER LEADER EXAMINATION: MM SCREENING DIGITAL BREAST TOMOSYNTHESIS, BILATERAL CLINICAL INFORMATION: Screening. Asymptomatic. COMPARISON: Mammography: Comparison is made with available priors TECHNIQUE: Digital breast mammography with tomosynthesis is performed in both the craniocaudal and mediolateral oblique views along with computer-aided detection (CAD). FINDINGS: There are scattered areas of fibroglandular density (ACR BI-RADS breast composition Category b). There are no significant masses, abnormal calcifications, or other abnormalities. MM/MM tomosynthesis screening BI IMPRESSION: No mammographic evidence of malignancy. ASSESSMENT: BI-RADS BI-RADS 1 - Negative RECOMMENDATION: Routine annual mammography screening. 1 year F/U This examination should not preclude the clinical evaluation of a suspicious palpable abnormality. This patient's information was entered into a reminder system with a target due date for their next mammogram. Electronically signed by: Fouzia Welsh DO 10/02/2024 02:54 PM EDT Dictated By: Fouzia Welsh DO Signed By: <Electronically signed by Fouzia Welsh DO in OV> 10/02/24 1454 DD/ 0815 TD/TT: 09/23/24 0825 Building Maintenance Repairer: Alycia BARRAGAN IMG BI PROCEDURES Final Result * Albumin, Random Urine W/Creatinine (11/27/2023 10:52 AM EDT) Creatinine, Urine 20.21 mg/dL [facility] Microalbumin Urine <5.0 mg/L [facility] Microalbum Creatinine Ratio Ur TNP <30 ug/mg cr [facility] Comment:Unable to calculate albumin/creatinine ratio due to lowmicroalbumin or creatinine result. Urine 11/27/2023 10:5 2 AM EDT 11/27/2023 11:23 AM EDT us Alycia Cooper FABRIC WORKER LEADER LAB URINE ORDERABLES Final Res ult Performing Organization Address [facility]/ZIP Co de Phone Number [facility] [address] [place] [address] [phone] * (ABNORMAL) Lipid Panel, Standard (11/27/2023 10:52 AM EDT) Triglycerides 337(H) <150 mg/dL [facility] Comment:Desirable Triglyceri de: less than 150 mg/dLBorderline High Triglyceride 150-199 mg/dLHigh Triglyceride: 200-499 mg/dLVery High Triglyceride: greater than or equal to 5OO mg/dL Cholesterol 210(H) <200 mg/dL [facility] Comment:Desirable Cholestero l: less than 200 mg/dLBorderline High Cholesterol: 200-239 mg/dLHigh Cholesterol: greater than 239 mg/dL LDL Cholesterol Calculated 106(H) <100 mg/dL [facility] Comment:Desirable LDL: less than 100 mg/dLNear Optimal/Above Optimal LDL: 110- 129 mg/dLBorderline High LDL: 130-159 mg/dLHigh LDL: 160-189 mg/dLVery High LDL: greater than or equal to 190 mg/dL HDL Cholesterol 37(L) >40 mg/dL [facility] Comment:Desirable HDL: great er than 40 mg/dL Note: This HDL assay may give artificially low results in patients with liver disease. Blood Venous blood specimen / Unknown 11/27/2023 10:52 AM EDT 11/27/2023 11:25 AM EDT us Alycia Cooper FABRIC WORKER LEADER LAB BLOOD ORDERABLES Final Res ult Performing Organization Address [facility]/ZIP Co de Phone Number [facility] [address] [place] [address] [phone] * ThinPrep Imaging Pap and HPV mRNA E6/E7 with Reflex to HPV 16,18/45 (11/14/2023 11:20 AM EDT) HPV 16 RNA [facility] HPV 18/45 RNA [facility] HPV nRNA E6/E7 Not Detected Not Detected [facility] Comment:Methodology: Transcr iption-Mediated AmplificationThis assay detects E6/E7 viral messenger RNA (mRNA) from 14high-risk HPV types (16,18,31,33,35,39,45,51,52,56,58,59,66,68).Cervical sources are required for HPV testing.If a vaginal source from a patient who has had atotal hysterectomy with removal of cervix wassubmitted, please contact the testing laboratoryfor alternative testing options.For additional information, please refer tohttp://education.Oomba/faq/DON952j6(This link if provided for information/educational purposes only.)THIS TEST WAS PERFORMED AT:[employer] [address] [id number] DELVALLE MD SOURCE: SEE NOTE [facility] Comment:Cervix Report Status: [facility] Clinical Information: SEE NOTE [facility] Comment:None given LMP: SEE NOTE [facility] Comment:NONE GIVEN Prev. PAP: SEE NOTE [facility] Comment:NONE GIVEN Prev. BX: SEE NOTE [facility] Comment:NONE GIVEN Statement Of Adequacy: SEE [facility] Comment:Satisfactory for dianna luation.Endocervical/transformation zone componentpresent. General Categorization: [facility] Interpretation/Result: SEE NOTE [facility] Comment:Cytology Results: Ne gative for intraepitheliallesion or malignancy. Cytology Comment SEE NOTE [facility] Comment:This Pap test has be en evaluated with computerassisted technology. Trailer Rental Clerk: SEE NOTE [facility] Comment:RPR, CT (ASCP) CT sc reening location: [address] [address] Review Trailer Rental Clerk: SEE NOTE [facility] Comment:GSG, CT(ASCP)CT scre ening location: [address] [address] Pathologist TNP [facility] PAP Infection TNP [facility] See Note SEE NOTE [facility] Comment:EXPLANATORY NOTE:The Pap is a screening test for cervical cancer. It isnot a diagnostic test and is subject to false negativeand false positive results. It is most reliable when asatisfactory sample, regularly obtained, is submittedwith relevant clinical findings and history, and whenthe Pap result is evaluated along with historic andcurrent clinical information. 11/14/2023 11:2 0 AM EDT 11/14/2023 1:43 PM EDT Narrative [facility] - 11/20/2023 12:06 PM EDT SEE SCANNED RESULTS IN EMRWas previous PAP abnormal? UnknownClinical Information: routineCollection Date: 11/14/23igh risk HPV with 16 18 genotyping? YReflex HPV any abnormal diagnosis? YReflex HPV if ASCUS only? NHigh Risk HPV (any diagnosis)? YLMP: postmenopausalDate of previous PAP unknownPerformed by: : cervical us Generic External Data Provider LAB PATHOLOGY ORD ERABLES Final Result [facility] [address] [place] [address] [phone] * Hm Colonoscopy (07/20/2021) Colonoscopy Normal Normal Stephanie Garcia - 07/20/2021 Repeat in 5 years due to hx of tubular adenoma us Historical Provider HEALTH MAINTENANCE Final Result * HIV 1/2 ANTIGEN/ANTIBODY,FOURTH GENERATION W/RFL (04/07/2020 3:21 PM EST) HIV-1/2 ANTIGEN AND ANTIBODIES, 4TH GENERATION W/ REFLEX NON-REACT WADE NON-REACT WADE [facility] Comment: HIV-1 antigen and HIV-1/HIV-2 antibodies were not detected. There is no laboratory evidence of HIV infection. PLEASE NOTE: This information has been disclosed to you from records whose confidentiality may be protected by state law. If your state requires such protection, then the state law prohibits you from making any further disclosure of the information without the specific written consent of the person to whom it pertains, or as otherwise permitted by law. A general authorization for the release of medical or other information is NOT sufficient for this purpose. For additional information please refer to http://[employer]fresh.Oomba/faq/NFX776 (This link is being provided for informational/ educational purposes only.) The performance of this assay has not been clinically validated in patients less than 2 years old. 04/07/2020 3:21 PM EST us Cari Ball [facility] BLOOD ORDERABLES Final Res ult [facility] Anywhere [address] from Last 3 Months or Most Recently Relevant to Health Maintenance Insurance [facility] [facility] [place] ADULT Care Teams Front Maker Lockstitch Relationship Specialty Start Date End Date Alycia Cooper FNP [address] [place] [phone] PCP - General Family Medicine 10/15/21
--- OUTSIDE RECORDS SUMMARY | 2024-12-12 12:04 | XMS_ITS | Encounter Summary ---
Author Organization [employer] Address [address] [facility] 7t [place] [address] Care Team Providers Care Political Reporter Name Role Phone Alycia Cooper Primary Care Provider [phone] Reason for Visit * Reason Comments Med Refill Encounter Details Date Type Department Care Team ([facility] Contact Info) Description 08/06/2024 Refill [facility] [address] [place] [address] Alycia Cooper FNP [address] [place], [place] [phone] Mixed stress and urge urinary incontinence Social [...] Description 02/03/2025 11:00 AM EST Office Visit [facility] [address] [place] [address] Siobhan Avina, OD [address] [place] [address] documented as of this encounter Visit Diagnoses Diagnosis Mixed stress and urge urinary incontinence Mixed incontinence urge and stress (male)(female) documented in this encounter Additional Health Concerns Assessment Noted Time PHQ-9 Depression Total Score: 0 02/24/19 23 2:32 PM EST documented as of this encounter Care Teams Political Reporter Relationship Specialty Start Date End Date Alycia Cooper FNP [address] [place] [phone] PCP - General Family Medicine 10/15/21 documented as of this encounter
--- OUTSIDE RECORDS SUMMARY | 2024-12-12 12:04 | XMS_ITS | Encounter Summary ---
Author Organization [employer] Address [address] 7[address] [place] [address] Care Team Providers Care Maintenance Worker House Trailer Name Role Phone Alycia Cooper YUNG Primary Care Provider [phone] Encounter Details Date Type Department Care Team ([facility] st Contact Info) Description 09/20/2022 Telephone [facility] [address] [place] [address] Tommy Sanderson, DDS [address] [place] [address] Social History Tobacco Use Types Packs/Day Years Used Date Smoking Tobacco: Every Day Cigarettes Smokeless Tobacco: Never Alcohol Use Standard Drinks/Week Comments Never 0 (1 standard drink = 0.6 oz pur e alcohol) Depression Answer Date Recorded Patient Health Questionnaire-9 Score 0 02/24/2022 Depression Answer Date Recorded Patient Health Questionnaire-2 Score 0 02/24/2022 Comments Unknown Sex and Gender Information Value Date Recorded Sex Assigned at Female 12/19/2021 10:37 AM EDT Legal Sex Female 10:37 AM EDT Gender Identity Female 12/19/2021 10:37 AM EDT Sexual Orientation Straight 12/19/2021 10 :37 AM EDT COVID-19 Exposure Response Date Recorded In the last 10 days, have yo u been in contact with someone who was confirmed or suspected to have Coronavirus/COVID-19? No / Unsure 08/29/2022 10:28 AM EDT documented as of this encounter Miscellaneous Notes * Telephone Encounter - Judy Valladares - 09/20/2022 10:10 AM EDT Thank You Patient was informed * Telephone Encounter - Judy Valladares - 09/20/2022 9:04 AM EDT Eva Cole 1965 Patient was seen 09/19/2022 for exo and stated she is still waiting for medication to be sent to pharmacy please advise. documented in this encounter Plan of Treatment Upcoming Encounters Date Type Department Care Team (Late st Contact Info) Description 02/03/2025 11:00 AM EST Office Visit [facility] [address] [place] [address] Siobhan Avina, OD [address] [place] [address] documented as of this encounter Visit Diagnoses Not on filedocumented in this encounter Additional Health Concerns Assessment Noted Time PHQ-9 Depression Total Score: 0 02/24/19 23 2:32 PM EST documented as of this encounter Care Teams Maintenance Worker House Trailer Relationship Specialty Start Date End Date Alycia Cooper FNP [address] [place] [address] PCP - General Family Medicine 10/15/21 documented as of this encounter
--- OUTSIDE RECORDS SUMMARY | 2024-12-12 12:04 | XMS_ITS | Encounter Summary ---
Author Organization [employer] Address [address] [facility] [address] 7[address] [place] [address] Care Team Providers Care Receiving Checker Name Role Phone Alycia Cooper Primary Care Provider [phone] Encounter Details Date Type Department Care Team (Late Contact Info) Description 03/17/2022 Orders Only [facility] [address] [place] [address] Alycia Cooper FNP [address] [place] [address] Mixed hyperlipidemia (Primary Dx) Social History Tobacco Use Types Packs/Day Years Used Date Smoking Tobacco: Every Day Cigarettes Smokeless Tobacco: Never Depression Answer Date Recorded Patient Health Questionnaire-9 [...] suspected to have Coronavirus/COVID-19? No / Unsure 02/24/2022 2:11 PM EST documented as of this encounter Plan of Treatment Upcoming Encounters Date Type Department Care Team ([facility] Contact Info) Description 02/03/2025 11:00 AM EST Office Visit [facility] [address] [place] [address] Siobhan Avina, OD [address] [place] [address] documented as of this encounter Procedures Procedure Name Priority Date/Time Associated Diagnosis Comments XR FOOT 3+ VIEWS RIGHT Routine 03/30/2022 10:53 AM EST documented in this encounter Results * XR Foot 3+ Views Right (03/30/2022 10:53 AM EST) Anatomical Region Laterality Modality Lower Extremities, Foot Right [facility] 03/30/2022 10:5 3 AM EST Narrative 04/03/2022 5:18 PM EST [address] [address] XRay Report Signed Patient: Eva Power MR#: [id number] : 1965 Acct:[id number] Age/Sex: 56 / F ADM Date: 03/30/22 Loc: [facility] Attending Dr: Alycia Cooper CLEANER WALL Ordering Physician: Alycia Cooper Date of Service: 03/30/22 Procedure(s): XR foot RT min 3V Accession Number(s): [id number] cc: Alycia Cooper EXAMINATION: XR FOOT, RIGHT CLINICAL INFORMATION: Chronic foot pain COMPARISON: None TECHNIQUE: AP, lateral, and oblique views of the right foot. FINDINGS: Degenerative changes of the first MTP and fifth MTP joints with joint space narrowing and osteophytosis. Calcaneal enthesopathy. No acute fracture or dislocation. XR/XR foot RT min 3V IMPRESSION: Degenerative changes of the first and fifth MTP joints. Dictated By: Jackelin Esparza MD Signed By: <Electronically signed by Jackelin Esparza MD in OV> 04/03/22 7728 DD/ 1053 TD/TT: Awake Overnight Counselor: Procedure Note Donotuseinterpreter, Image - 04/03/[address] [place] [address] XRay Report Signed Patient: Fely Power#: [id number] : 1965Acct:[id number] Age/Sex: 56 / FADM Date: 03/30/22 Loc: [facility] Attending Dr: Alycia SCHWARTZP Ordering Physician: Alycia Cooper Date of Service: 03/30/22 Procedure(s): XR foot RT min 3V Accession Number(s): [id number] cc: Alycia Cooper EXAMINATION: XR FOOT, RIGHT CLINICAL INFORMATION: Chronic foot pain COMPARISON: None TECHNIQUE: AP, lateral, and oblique views of the right foot. FINDINGS: Degenerative changes of the first MTP and fifth MTP joints with joint space narrowing and osteophytosis. Calcaneal enthesopathy. No acute fracture or dislocation. XR/XR foot RT min 3V IMPRESSION: Degenerative changes of the first and fifth MTP joints. Dictated By: Jackelin Esparza MD Signed By: <Electronically signed by Jackelin Esparza MD in OV> 04/03/22 1715 DD/ 1053 TD/TT: Awake Overnight Counselor: [facility] External Provider IMG XR PROCEDURES Edited Result - Final documented in this encounter Visit Diagnoses Diagnosis Mixed hyperlipidemia- Primary documented in this encounter Additional Health Concerns Assessment Noted Time PHQ-9 Depression Total Score: 0 02/24/19 23 2:32 PM EST documented as of this encounter Care Teams Receiving Checker Relationship Specialty Start Date End Date Alycia Cooper FNP [address] [place] [address] PCP - General Family Medicine 10/15/21 documented as of this encounter
--- OUTSIDE RECORDS SUMMARY | 2024-12-12 12:04 | XMS_ITS | Encounter Summary ---
Author Organization [employer] Address [address] [facility] 7t [place] [address] Care Team Providers Care Railcar Brake Operator Name Role Phone Alycia Cooper Primary Care Provider [phone] Reason for Visit * Reason Comments Med Refill Encounter Details Date Type Department Care Team (Late Contact Info) Description 04/14/2022 Refill [facility] [address] [place] [address] Alycia Cooper FNP [address] [place] [address] Social History Tobacco Use Types Packs/Day Years [...] suspected to have Coronavirus/COVID-19? No / Unsure 03/30/2022 8:40 AM EST documented as of this encounter Plan of Treatment Upcoming Encounters Date Type Department Care Team (Late st Contact Info) Description 02/03/2025 11:00 AM EST Office Visit [facility] [address] [place] [address] Siobhan Avina, OD [address] [place] [address] documented as of this encounter Visit Diagnoses Not on filedocumented in this encounter Additional Health Concerns Assessment Noted Time PHQ-9 Depression Total Score: 0 02/24/19 23 2:32 PM EST documented as of this encounter Care Teams Railcar Brake Operator Relationship Specialty Start Date End Date Alycia Cooper FNP [address] [place] [address] PCP - General Family Medicine 10/15/21 documented as of this encounter
--- OUTSIDE RECORDS SUMMARY | 2024-12-12 12:04 | XMS_ITS | Encounter Summary ---
Author Organization [employer] Address [address] [facility] [address] [place] [address] Care Team Providers Care Post Commander Name Role Phone Alycia Cooper YUNG Primary Care Provider [phone] Encounter Details Date Type Department Care Team ([facility] st Contact Info) Description 01/05/2023 Abstract [facility] [address] [place], [place] [phone] Stephanie Mercer Social History Tobacco Use Types Packs/Day Years Used Date Smoking Tobacco: Every Day Cigarettes Smokeless Tobacco: Never Alcohol Use Standard Drinks/Week Comments Never 0 (1 standard drink = 0.6 oz pur e alcohol) Depression Answer Date Recorded Patient Health Questionnaire-9 Score 0 02/24/2022 Housing Stability Answer Date Recorded What is your housing situation today? I have xavi ruiz 12/05/[address] you li ve. Do you have problems with any of the following? None of the above 12/05/2022 Food Insecurity Answer Date Recorded Within the past 12 months, y ou worried that your food would run out before you got money to buy more: Never True 12/05/2022 Within the past 12 months,th e food you bought just didn't last and you didn't have enough money to get more: Never True Transportation Answer Date Recorded In the past 12 months, has l ack of transportation kept you from medical appts, meetings, work or from getting things needed for daily living? No 12/05/2022 Utilities Answer Date Recorded In the past 12 months, has t he electric, gas, oil or water company threatened to shut off services in your home? No 12/05/2022 Depression Answer Date Recorded Patient Health Questionnaire-2 [...] 11:00 AM EST Office Visit [facility] [address] [place], [place] [phone] TarkaSiobhan, OD [address] [place], [place] [phone] documented as of this encounter Procedures Procedure Name Priority Date/Time Associated Diagnosis Comments COLONOSCOPY Routine 07/20/2021 documented in this encounter Results * Colonoscopy (07/20/2021) Colonoscopy Normal Normal Narrative Stephanie Mercer - 07/20/2021 Repeat in 5 years due to hx of tubular adenoma us Historical Provider HEALTH MAINTENANCE Final Result documented in this encounter Visit Diagnoses Not on filedocumented in this encounter Additional Health Concerns Assessment Noted Time PHQ-9 Depression Total Score: 0 02/24/19 23 2:32 PM EST documented as of this encounter Care Teams Post Commander Relationship Specialty Start Date End Date Alycia Cooper FNP [address] [place] [address] PCP - General Family Medicine 10/15/21 documented as of this encounter
--- OUTSIDE RECORDS SUMMARY | 2024-12-12 12:04 | XMS_ITS | Encounter Summary ---
Author Organization [employer] Address [address] [facility] 7t [place] [address] Care Team Providers Care Dry Cans Operator Name Role Phone Alycia Cooper Primary Care Provider [phone] Reason for Visit * Reason Onset Date Comments Prior Authorization 05/03/2022 Encounter Details Date Type Department Care Team (Late st Contact Info) Description 05/03/2022 Telephone [facility] [address] [place] [address] Alycia Cooper FNP [address] [place] [address] Prior Authorization Social History Tobacco Use Types Packs/Day Years [...] encounter Miscellaneous Notes * Telephone Encounter - Alondra Colon - 05/03/2022 11:42 AM EDT TC to patient and advised she has to call urology to do PA for medication as they prescribe it. Patient understood and agreed with plan. * Telephone Encounter - Bob Costa - 05/03/2022 11:10 AM EDT Tc from pt requesting a PA for medication Mirabegron 25 mg documented in this encounter Plan of Treatment Upcoming Encounters Date Type Department Care Team (Late st Contact Info) Description 02/03/2025 11:00 AM EST Office Visit [facility] [address] [place], [place] [phone] Siobhan Avina, OD [address] [place] [address] documented as of this encounter Visit Diagnoses Not on filedocumented in this encounter Additional Health Concerns Assessment Noted Time PHQ-9 Depression Total Score: 0 02/24/19 23 2:32 PM EST documented as of this encounter Care Teams Dry Cans Operator Relationship Specialty Start Date End Date Alycia Cooper FNP [address] [place] [address] PCP - General Family Medicine 10/15/21 documented as of this encounter
--- OUTSIDE RECORDS SUMMARY | 2024-12-12 12:04 | XMS_ITS | Encounter Summary ---
Author Organization [employer] Address [address] [place] [address] Care Team Providers Care Senior Product Consultant Name Role Phone Alycia Cooper YUNG Primary Care Provider [phone] Reason for Visit * Reason Comments Med Refill Encounter Details Date Type Department Care Team (Late st Contact Info) Description 02/18/2024 Refill [facility] [address] [place] [address] Jazmine Polanco MD [address] [place] [address] Acute conjunctivitis of right eye, unspecified acute conjunctivitis type Social History Tobacco Use Types Packs/Day Years Used Date Smoking Tobacco: Every Day Cigarettes Smokeless Tobacco: Never Alcohol Use Standard Drinks/Week Comments Never 0 (1 standard drink = 0.6 oz pur e alcohol) Depression Answer Date Recorded Patient Health Questionnaire-9 Score 0 02/24/2022 Housing Stability Answer Date Recorded What is your housing situation today? I have xaviernie ruiz 05/28/[address] you [...] Description 02/03/2025 11:00 AM EST Office Visit [facility] [address] [place] [address] Siobhan Avina, OD [address] [place] [address] documented as of this encounter Visit Diagnoses Diagnosis Acute conjunctivitis of right eye, unspecified acute conjunctivitis type documented in this encounter Additional Health Concerns Assessment Noted Time PHQ-9 Depression Total Score: 0 02/24/19 23 2:32 PM EST documented as of this encounter Care Teams Senior Product Consultant Relationship Specialty Start Date End Date Alycia Cooper FNP [address] [place] [address] PCP - General Family Medicine 10/15/21 documented as of this encounter
--- OUTSIDE RECORDS SUMMARY | 2024-12-12 12:04 | XMS_ITS | Encounter Summary ---
Author Organization [employer] Address [address] [facility] [address] [place] [address] Care Team Providers Care Patient Experience Coordinator Name Role Phone Alycia Cooper Primary Care Provider [phone] Reason for Visit * Reason Onset Date Comments Referral 06/11/2023 Encounter Details Date Type Department Care Team ([facility] st Contact Info) Description 06/11/2023 Telephone [facility] [address] [place] [address] Alycia Cooper FNP [address] [place], [place] [phone] Referral Social History Tobacco Use Types Packs/Day Years [...] encounter Miscellaneous Notes * Telephone Encounter - Marcy Cravajal RN - 06/11/2023 3:43 PM EDT [facility] referral for eye care placed. Pt will be informed of appt once available. * Telephone Encounter - Kimberlyn Lenz - 06/11/2023 12:40 PM EDT Tc from pt requesting a referral for [facility], stated already discussed with PCP. documented in this encounter Plan of Treatment Upcoming Encounters Date Type Department Care Team (Late st Contact Info) Description 02/03/2025 11:00 AM EST Office Visit [facility] [address] [place] [address] Siobhan Avina, OD [address] [place] [address] documented as of this encounter Visit Diagnoses Diagnosis Type 2 diabetes mellitus without complication, without long-term current use of insulin (HCC) documented in this encounter Additional Health Concerns Assessment Noted Time PHQ-9 Depression Total Score: 0 02/24/19 23 2:32 PM EST documented as of this encounter Care Teams Patient Experience Coordinator Relationship Specialty Start Date End Date Alycia Cooper FNP [address] [place] [address] PCP - General Family Medicine 10/15/21 documented as of this encounter
--- OUTSIDE RECORDS SUMMARY | 2024-12-12 12:04 | XMS_ITS | Encounter Summary ---
Author Organization [employer] Address [address] [facility] [address] [place] [address] Care Team Providers Care Grape Picker Name Role Phone Alycia Cooper YUNG Primary Care Provider [phone] Reason for Visit * Reason Comments Med Change Request Encounter Details Date Type Department Care Team ([facility] st Contact Info) Description 12/26/2022 Refill [facility] MEDICINE [address] [place], [place] [phone] Julia Mayfield DO [address] [place] [address] Type 2 diabetes mellitus without complication, without long-term current use of insulin ([facility]) Social History Tobacco Use Types Packs/Day Years [...] Description 02/03/2025 11:00 AM EST Office Visit [facility] OPTOMETRY [address] [place] [address] Siobhan Avina, OD [address] [place] [address] documented as of this encounter Visit Diagnoses Diagnosis Type 2 diabetes mellitus without complication, without long-term current use of insulin (HCC) documented in this encounter Additional Health Concerns Assessment Noted Time PHQ-9 Depression Total Score: 0 02/24/19 23 2:32 PM EST documented as of this encounter Care Teams Grape Picker Relationship Specialty Start Date End Date Alycia Cooper FNP [address] [place] [address] PCP - General Family Medicine 10/15/21 documented as of this encounter
--- OUTSIDE RECORDS SUMMARY | 2024-12-12 12:04 | XMS_ITS | Encounter Summary ---
Author Organization [employer] Address [address] [facility] 7[address] [place] [address] Care Team Providers Care Weigh Tank Operator Name Role Phone Alycia Cooper Primary Care Provider [phone] Reason for Visit * Reason Comments Med Refill Encounter Details Date Type Department Care Team ([facility] Contact Info) Description 06/19/2023 Refill [facility] MED & PEDS [address] [place] [address] Alycia Cooper FNP 505 [place], [place] [phone] Mixed stress and urge urinary incontinence Social [...] Description 02/03/2025 11:00 AM EST Office Visit [facility] OPTOMETRY [address] [place] [address] Siobhan Avina, OD [address] [place] [address] documented as of this encounter Visit Diagnoses Diagnosis Mixed stress and urge urinary incontinence Mixed incontinence urge and stress (male)(female) documented in this encounter Additional Health Concerns Assessment Noted Time PHQ-9 Depression Total Score: 0 02/24/19 23 2:32 PM EST documented as of this encounter Care Teams Weigh Tank Operator Relationship Specialty Start Date End Date Alycia Cooper FNP 230 [place] [address] PCP - General Family Medicine 10/15/21 documented as of this encounter
--- OUTSIDE RECORDS SUMMARY | 2024-12-12 12:04 | XMS_ITS | Encounter Summary ---
Author Organization [employer] Address [address] [facility] 7t [place] [address] Care Team Providers Care Porcelain Buildup Assistant Name Role Phone Alycia Cooper Primary Care Provider [phone] Encounter Details Date Type Department Care Team (Late st Contact Info) Description 02/03/2022 Orders Only [facility] [address] [place] [address] Cris Barnard, RN Social History Tobacco Use Types Packs/Day Years [...] Description 02/03/2025 11:00 AM EST Office Visit [facility] OPTOMETRY [address] [place] [address] TarkaSiobhan, OD [address] [place] [address] documented as of this encounter Visit Diagnoses Not on filedocumented in this encounter Care Teams Porcelain Buildup Assistant Relationship Specialty Start Date End Date Alycia Cooper FNP [address] [place] [address] PCP - General Family Medicine 10/15/21 documented as of this encounter
--- OUTSIDE RECORDS SUMMARY | 2024-12-12 12:04 | XMS_ITS | Encounter Summary ---
Author Organization [employer] Address [address] [facility] [address]t [place] [address] Care Team Providers Care Abattoir Supervisor Name Role Phone Alycia Cooper Primary Care Provider [phone] Reason for Visit * Reason Comments Med Refill Encounter Details Date Type Department Care Team ([facility] Contact Info) Description 08/03/2024 Refill [facility] MED & PEDS 505 [place] [address] Alycia Cooper FNP 505 [place], [place] [phone] Mixed stress and urge urinary incontinence Social [...] Description 02/03/2025 11:00 AM EST Office Visit [facility] OPTOMETRY [address] [place] [address] Siobhan Avina, OD 267 [place] [address] documented as of this encounter Visit Diagnoses Diagnosis Mixed stress and urge urinary incontinence Mixed incontinence urge and stress (male)(female) documented in this encounter Additional Health Concerns Assessment Noted Time PHQ-9 Depression Total Score: 0 02/24/19 23 2:32 PM EST documented as of this encounter Care Teams Abattoir Supervisor Relationship Specialty Start Date End Date Alycia Cooper FNP [address] [place] [address] PCP - General Family Medicine 10/15/21 documented as of this encounter
--- OUTSIDE RECORDS SUMMARY | 2024-12-12 12:04 | XMS_ITS | Encounter Summary ---
Author Organization [employer] Address [address] [facility] [address] [place] [address] Care Team Providers Care Retail Parts Pro Name Role Phone Alycia Cooper Primary Care Provider [phone] Encounter Details Date Type Department Care Team ([facility] Contact Info) Description 09/27/2023 Orders Only [facility] MED & PEDS 505 [place], [place] [phone] Alycia Cooper FNP 505 [place], [place] [phone] Abnormal finding on imaging (Primary Dx) Social [...] Description 02/03/2025 11:00 AM EST Office Visit [facility] OPTOMETRY [address] [place] [address] Tarka Siobhan, OD 267 [place] [address] documented as of this encounter Procedures Procedure Name Priority Date/Time Associated Diagnosis Comments XR CHEST 2 VIEWS Routine 12/05/2023 10:5 0 AM EDT Abnormal finding on imaging documented in this encounter Results * XR Chest 2 Views (12/05/2023 10:50 AM EDT) Anatomical Region Laterality Modality Chest Radiographic Justyna ging 12/05/2023 10:5 0 AM EDT Narrative 02/21/2024 8:34 PM EST [address] [address] XRay Report Signed Patient: Eva Power MR#: [id number] : 1965 Acct:[id number] Age/Sex: 58 / F ADM Date: 12/05/23 Loc: [facility] Attending Dr: Alycia Cooper NEWSPAPER CORRESPONDENT Ordering Physician: Alycia Cooper Date of Service: 12/05/23 Procedure(s): XR chest 2V Accession Number(s): [id number] cc: Alycia Cooper EXAMINATION: XR CHEST 3 [...] MD Signed By: <Electronically signed by Yoni Fedler MD in OV> 02/21/242029 DD/ 1050 TD/TT: 12/05/23 1102 Ncqa Specialist: Procedure Note Donotuseinterpreter, Image - 02/21/2024 [place] [address] XRay Report Signed Patient: Fely Power#: [id number] : 1965Acct:[id number] Age/Sex: 58 / FADM Date: 12/05/23 Loc: [facility] Attending Dr: Alycia BARRAGAN Ordering Physician: Alycia Cooper Date of Service: 12/05/23 Procedure(s): XR chest 2V Accession Number(s): [id number] cc: Alycia Cooper EXAMINATION: XR CHEST 3 [...] Yoni Felder MD 02/21/2024 08:30 PM EST RP Dictated By: Yoni Felder MD Signed By: <Electronically signed by Yoni Felder MD in OV> 02/21/242029 DD/ 1050 TD/TT: 12/05/23 1102 Ncqa Specialist: SR Alycia BARRAGAN IMG XR PROCEDURES Edited Resul t - Final documented in this encounter Visit Diagnoses Diagnosis Abnormal finding on imaging- Primary Other nonspecific (abnormal) findings on radiological and other examinations of body structure documented in this encounter Additional Health Concerns Assessment Noted Time PHQ-9 Depression Total Score: 0 02/24/19 23 2:32 PM EST documented as of this encounter Care Teams Retail Parts Pro Relationship Specialty Start Date End Date Alycia Cooper FNP 230 [place] [address] PCP - General Family Medicine 10/15/21 documented as of this encounter
--- OUTSIDE RECORDS SUMMARY | 2024-12-12 12:05 | XMS_ITS | Clinical Summary ---
Author Organization [address] [facility] Address 175 [place] [address] Phone Care Team Providers Care Physical Therapist Name Role Phone Alycia Cooper RN Primary Care Provider Allergies No known active allergies Medications glucose blood test strip Test blood sugars twice a day 4 Active atorvastatin (LIPITOR) 80 mg tablet TAKE 1 TABLET (80 MG) BY MOUTH AT BEDTIME. (FOR CHOLESTEROL) Active betamethasone dipropionate (DIPROSONE) 0.05 % ointment APPLY TO HANDS AND FEET DAILY NEEDED FOR FLARES 4 Active betamethasone, augmented, (DIPROLENE) 0.05 % ointment APPLY TO HANDS TWICE A DAY NEEDED FOR FLARES 2 Active Vitamin D3 50 mcg (2,000 unit) capsule take 1 capsule (50 mcg) by mouth in the morning Active diclofenac (VOLTAREN) 1 % topical gel APPLY THIN LAYER TO AFFECTED AREA 3-4 TIMES DAILY NEEDED FOR PAIN Active Encounters Date Type Department Care Team Description 10/27/2024 2:00 PM EDT Consult Orthopedic Surgery [facility] [address] [address] Shashank London, DPM Plantar fascial fibromatosis (Primary Dx); Pain in right foot; Primary osteoarthritis of both feet; Equinus contracture of ankle from Last 3 Months Social History Tobacco Use Types Packs/Day Years Used Date Smoking Tobacco: Never Assessed Comments Unknown Sex and Gender Information Value Date Recorded Sex Assigned at Not on file Legal Sex Female 9:08 PM EST Gender Identity Not on file Sexual Orientation Not on file Plan of Treatment Upcoming Encounters Date Type Department Care Team ([facility] st Contact Info) Description 12/16/2024 11:00 AM EDT Office Visit Orthopedic Surgery - [place] 250 175 [facility] 250 [place] [phone] Shashank London, DPM [address] [phone] Health Maintenance Due Date Last Done Comments Breast Cancer Screening 1965 Colorectal Cancer Screening: Colonoscopy 1965 Diabetes: Annual GFR (Glomerular Filtration Rate) 1965 Diabetes: Annual Foot Exam 09/17/1977 Diabetes: Annual Retina Eye Exam 09/17/1977 Hepatitis A Vaccines (1 of 2 - Risk 2-dose series) 09/17/1986 Cervical Cancer Screening: Pap Smear 09/17/1988 RSV Immunization Adult Patients (1 - Risk 50-74 years 1-dose series) 09/17/2017 Hepatitis C Screening 03/16/2023 Social Influencers of Health Screening 03/16/2023 Depression Screening 02/20/2024 Influenza Vaccine (#1) 2024 , 02/24/2022, 12/27/2020, Additional history exists Diabetes: Annual Urine Albumin-Creatinine Ratio (uACR) 10/27/2024 Diabetes: Blood Sugar Control Test (HGBA1C) 04/23/2025 10/24/2024 Cholesterol Screening (Lipid Panel) 11/26/2028 11/27/2023 DTaP,Tdap,and Td Vaccines (2 - Td or Tdap) 06/18/2030 06/18/2020 HIV Screening Completed 04/07/2020 Zoster Vaccines Completed [...] to complete this topic RSV Immunization Patients Under 20 months Aged Out No longer eligible based on patient's age to complete this topic Varicella Vaccines Aged Out No longer eligible based on patient's age to complete this topic Procedures Procedure Name Priority Date/Time Associated Diagnosis Comments INJECTION TENDON OR LIGAMENT Routine 10/27/2024 2:00 PM EDT Plantar fascial fibromatosis INJECTION TENDON OR LIGAMENT Routine 10/27/2024 2:00 PM EDT Plantar fascial fibromatosis from Last 3 Months Results * Injection tendon or ligament (10/27/2024 2:00 PM EDT) Shashank Kimbrough DPM - 10/27/2024 2:00 PM EDT Shashank London DPM 10/27/2024 2:16 PM Injection tendon or ligament Indications: pain Details: 25 G needle Medications: 0.5 mL lidocaine (PF) 1 %; 20 mg triamcinolone acetonide 40 mg/mL Informed Consent: Site: Foot ligament tendon Shashank London DPM IN CLINIC/BEDSIDE ORDERAB LES Final Result * Injection tendon or ligament (10/27/2024 2:00 PM EDT) Shashank Kimbrough DPM - 10/27/2024 2:00 PM EDT Shashank London DPM 10/27/2024 2:16 PM Injection tendon or ligament Indications: pain Details: 25 G needle Medications: 0.5 mL lidocaine (PF) 1 %; 20 mg triamcinolone acetonide 40 mg/mL Informed Consent: Site: Foot ligament tendon Shashank London DPM IN CLINIC/BEDSIDE ORDERAB LES Final Result from Last 3 Months Insurance MEDICAID - [place] Care Teams Physical Therapist Relationship Specialty Start Date End Date Alycia Cooper RN [address] [address] PCP - General 11/23/21
== END 2024-12-12 10:56 | disposition home or self-care (01) ==
PROVIDERS: PCP Registered Nurse; Referring Provider Registered Nurse; Visit Provider Physician Assistant Medical
DX: F17.210 Nicotine dependence, cigarettes, uncomplicated (principal)
CPT/HCPCS: G0296

== ENCOUNTER 2024-12-12 10:54 | Outpatient (REF) | payer OTHER, SELFPAY ==
--- NOTE | ~2024-12-12 | CT_ITS ---
EXAMINATION: CT LOW-DOSE SCREENING CHEST WITHOUT CONTRAST CLINICAL INFORMATION: 59-year-old female, current smoker, 46 pack years, lung cancer screening. COMPARISON: None available. TECHNIQUE: Multidetector volumetric CT imaging of the chest is performed on a Siemens SOMATOM Definition scanner without contrast using low dose technique. Additional 2D coronal and sagittal reformatted images and axial 3D maximum intensity projection (MIP) images are generated on the CT workstation. This CT examination was performed using dose optimization techniques as appropriate, variously including the following: *Automated exposure control *Adjustment of mA and/or kV according to patient size (this includes techniques or standardized protocols for targeted exams where dose is matched to indication/reason for exam; i.e. extremities or head) *Use of iterative reconstruction technique FINDINGS: PULMONARY NODULES: 2 mm nodule lateral right apex (series 5, image 29). 2 mm nodule lateral right upper lobe (series 5, image 44). 2 mm calcified granuloma right middle lobe abutting the fissure (series 5, image 81). There are a few additional scattered calcified and noncalcified 2 mm micronodules present in both lungs. LUNGS: Lungs are well aerated and symmetrically expanded. There is mild paraseptal emphysema present. There is reticular scarring or atelectasis in the lateral right lower lobe. There is mild thickening of the small airways suggesting mild chronic bronchitis. There is no pleural effusion or pneumothorax. MEDIASTINUM: Normal-appearing thyroid without discrete nodule. No mediastinal mass or abnormal lymph nodes. Aorta is mildly calcified but nonaneurysmal. Main pulmonary artery is normal in caliber. Heart size is normal. No pericardial effusion. There is a small type I hiatus hernia. Central airways are patent. CORONARY ARTERY CALCIFICATION: Mild. CHEST WALL/AXILLA: No masses or abnormal lymph nodes. UPPER ABDOMEN: There has been a cholecystectomy. The remainder of the imaged upper abdominal contents appear normal within the confines of noncontrast low dose technique. OSSEOUS STRUCTURES: No suspicious lytic or blastic bone lesion. Mild degenerative changes of the spine. CT/CT lung screening IMPRESSION: 1. There are a few scattered 2 mm calcified and noncalcified micronodules, statistically benign. 2. There is mild paraseptal emphysema. 3. There is mild small airway thickening suggesting chronic bronchitis. ASSESSMENT: 1. Lung-RADS Category 2: Benign appearance or behavior of nodules. 2. Lung-RADS Category S: None. RECOMMENDATION: Continued routine annual low-dose CT lung screening in 1 year is recommended. An order for CT CHEST LOW DOSE CANCER SCREENING ([id number]) can be placed. Electronically signed by: Jaydon Miramontes MD 12/12/2024 11:36 AM EDT
--- OUTSIDE RECORDS SUMMARY | 2024-12-12 12:44 | XMS_ITS | Data Portability ---
Author Organization MD - [facility] Address [address] [place] [phone] Assessment Encounter Date Assessment Date Assessment LastModified by Organization Details LastModified Time 12/27/2023 12/27/2023 Moderate to severe right-sided sensorineural hearing loss. Suggest CROS amplification. Written information given and medical clearance provided parker Not available 12/27/2023 12:51:21 Plan of Treatment Reminders Order Date Submit Date Provider Last Modified By Organization Details Last Modified Time Details Appointments None record ed. Lab None record ed. Referral None record ed. Procedures None record ed. Surgeries None record ed. Imaging None record ed. Medication Orders None record ed. Patient TargetsNo targets recorded. Patient InstructionsNo instructions recorded. Reason for Referral None Reported. Results Created Date Observation Date Name Description Value Unit Range Abnormal Flag Note LastModifiedBy Organization Detail LastModifiedTime 12/27/19 24 05/09/2022 audio gram No observ ation record ed. [email or web address] Not Available 08/2023 13:11:54 12/27/19 24 medic al clear ance* No observ ation record ed. [email or web address] Not Available 13:09:25 12/28/19 24 audio gram No observ ation record ed. BARCODE Not Available 2023 15:37:44 Result Notes None recorded. Problems Name Problem SNOMED Code Status Onset Date Resolution Date Notes Provider Name and Address Organization Details Recorded Time Sensorineu ral hearing loss 84259956 Active 2022 Sensorineu ral hearing loss, unilateral , right ear, with unrestrict ed hearing on the contralate ral side; Note: Date Diagnosed: 05/09/2022 3:06 PM (H90.41) Not Available [facility] 4 03:33:03 Problem Notes None recorded. Procedures Surgical History Date Name Laterality Status Provider Name and Address Organization Details Recorded Time 12/27/2023 Air & Speech Audio with Tymps - 68073, [address] & 11536 completed NORA OCHOA [place], [facility]-[address],[place] [address], [place], [address], [facility] - [facility] 12/27/2023 11:31:28 Imaging Results None recorded. Procedure Notes None recorded. Medical Equipment None Reported. Medications Name Sig Start Date Stop Date Status Note LastModified by Organization Details LastModified Time atorvasta tin 40 mg tablet TAKE 1 TABLET (40 MG) BY MOUTH AT BEDTIME. (FOR CHOLESTE ROL) active Not Available Not Available No t Available azithromy colleen 250 mg tablet TAKE 2 TABLETS BY MOUTH TODAY, THEN TAKE 1 TABLET DAILY FOR 4 DAYS DIRECTED 12/26 completed Not Available Not Available Not Available prednison e 20 mg tablet TAKE 2 TABLETS BY MOUTH EVERY MORNING FOR 5 DAYS 12/26 completed Not Available Not Available Not Available tacrolimu s 0.1 % topical ointment APPLY TO HANDS AND FEET TWICE DAILY NEEDED FLARES, ALTERNAT ING WITH TOPICAL STEROIDS 12/26 completed Not Available Not Available Not Available metformin 1,000 mg tablet TAKE 1 TABLET (1000 MG) BY MOUTH WITH BREAKFAS T AND WITH EVENING MEAL active Not Available Not Available No t Available neomycin- polymyxin -dexameth 3.5 mg/mL-10, 000 unit/mL-0 .1% eye drops ADMINIST ER 1 DROP INTO THE RIGHT EYE 4 TIMES DAILY FOR 10 DAYS. 12/26 completed Not Available Not Available Not Available betametha sone, augmented 0.05 % topical ointment APPLY TO PATCH ON LEFT FOOT DAILY NEEDED FOR FLARES 12/26 completed Not Available Not Available Not Available ketoconaz ole 2 % topical cream APPLY TO RASH BETWEEN THIGHS TWICE DAILY UNTIL RESOLVED . 12/26 completed Not Available Not Available Not Available betametha sone dipropion ate 0.05 % topical ointment APPLY TO HANDS AND FEET DAILY NEEDED FOR FLARES 12/26 completed Not Available Not Available Not Available metformin ER 500 mg tablet,ex tended release 24 hr TAKE 2 TABLETS (1,000mg ) BY MOUTH TWICE DAILY WITH BREAKFAS T AND DINNER. DO NOT BREAK, CRUSH, DISSOLVE OR CHEW 12/26 completed Not Available Not Available Not Available metformin ER 1,000 mg tablet,ex tended release 24hr (osmotic) active Medicati on ID: [id number] B rand Name: penny maldonado Send Method: E-Prescr ibed Sub s Allowed: subs OK Medic ationGen ericName : penny maldonado Not Available Not Available Not Available FreeStyle Lite Strips TEST BLOOD SUGARS TWICE A DAY active Not Available Not Available No t Available diclofena c 1 % topical gel APPLY THIN LAYER TO AFFECTED AREA 3-4 TIMES DAILY NEEDED FOR PAIN active Not Available Not Available No t Available Vitamin D3 50 mcg (2,000 unit) capsule TAKE 1 CAPSULE (50 MCG) BY MOUTH IN THE MORNING active Not Available Not Available No t Available Myrbetriq 25 mg tablet,ex tended release TAKE 2 TABLETS BY MOUTH EVERY DAY 12/26 completed Not Available Not Available Not Available Myrbetriq 50 mg tablet,ex tended release TAKE 1 TABLET (50 MG) BY MOUTH AT BEDTIME. DO NOT CRUSH, CHEW, OR SPLIT. active Not Available Not Available No t Available Vitals None Recorded Social History None recorded. Functional Status None recorded. Mental Status None recorded. Family History Nothing Reported. Medical History Condition Response Diabetes Y Gynecological HistoryNo gynecological history recorded. Obstetrics History GPAL:G 0 P 0 0 0 0 Past Encounters Encounter ID Performer Location Encounter Start Date Encounter Closed Date Diagnosis/Indication Diagnosis SNOMED-CT Code Diagnosis ICD10 Code Diagnosis IMO Codes Diagnosis Note [id number] JOSSE FARFAN MD [facility] [address] [place] [address] 12/27/2023 10:28:53 12/27/2023 12:09:17 Sensorineural hearing loss 16723050 H90.41 Audiologic al evaluation results: Right ear: Moderate- severe SNHL with no word recognitio n. Left ear: Normal hearing with excellent word recognitio n. Tympanomet ry: Right Ear:Type A Left Ear:Type A Health Concerns Section Related Observation LastModified by Organization Detai ls LastModified Time None Recorded Concern Status LastModified by Organization Details LastModified Time None Recorded Advance Directives Directive None Recorded Payers Insurance Date Sequence Insurance Name Policy Number Policy Marroquin Covered Member ID Marroquin Member ID Guarantor Name 02/04/2024 1 MEDICAID-[place]: [facility] Eva Dickersonoso [id number] Eva Otto Notes Date Note Type Note Provider Name and Address Organization Details Recorded Time 12/27/2023 text/html Patient with history of right sudden hearing loss in 2022 with negative MRI scan. Previously seen by Dr. Gonzales. She is now interested in amplification JOSSE MICHELLE MD [address] [place] [address], [phone], [facility] - [facility] 12/27/2023 12:51:33 OBGyn Episode No OBEpisode recorded.
== END 2024-12-12 10:55 | disposition home or self-care (01) ==
LOC: HO.CT 10:54
PROVIDERS: PCP Registered Nurse; Visit Provider Physician Assistant Medical
DX: Z12.2 Encounter for screening for malignant neoplasm of respiratory organs (principal); F17.210 Nicotine dependence, cigarettes, uncomplicated
CPT/HCPCS: 71271

== ENCOUNTER → 2024-12-12 10:55 | Outpatient (BNV) | payer OTHER, SELFPAY | PROVIDERS: PCP Registered Nurse; Visit Provider Radiology Diagnostic Radiology | DX: F17.210 Nicotine dependence, cigarettes, uncomplicated (principal) | CPT/HCPCS: 71271 ==

== ENCOUNTER 2025-01-27 08:17 | Outpatient (REF) | payer OTHER, SELFPAY | END 2025-01-27 08:18 | disposition home or self-care (01) | LOC: HO.LNP 08:17 | PROVIDERS: PCP Registered Nurse; Visit Provider Advanced Practice Midwife | DX: Z01.419 Encounter for gynecological examination (general) (routine) without abnormal findings (principal); Z12.39 Encounter for other screening for malignant neoplasm of breast; Z11.51 Encounter for screening for human papillomavirus (HPV); Z72.0 Tobacco use; Z98.51 Tubal ligation status | CPT/HCPCS: 87626; 88175 ==